=== PATIENT | male | born 1950 | race Caucasian/White ===

== ENCOUNTER → 2017-12-15 | Outpatient (CLI) | payer BC ==
[~2017-12-15] MED LIST: ASPI81TA28 PO; EPP3/2 IM; LPT10 PO; LSN/10125 PO
[2017-12-15 12:52] LABS: ALBUMIN 3.9 gm/dl (3.4-5.0); ALT/SGPT 35 U/L (12-78); AST/SGOT 16 U/L (15-37); BLOOD UREA NITROGEN 18 mg/dl (7-18); CALCIUM 9.1 mg/dl (8.5-10.1); CARBON DIOXIDE 26 mmol/L (21-32); CREATININE 1.15 mg/dl (0.60-1.40); GLUCOSE 98 mg/dl (70-99); HEMATOCRIT 49.7 % (42-52); HEMOGLOBIN 17.3 g/dL (14.0-18.0); MEAN CELL VOLUME 90.5 fL (80-100); MEAN CORPUSCULAR HEMOGLOBIN 31.5 pg (25-34); MEAN CORPUSCULAR HGB CONC 34.8 g/dl (32-36); MEAN PLATELET VOLUME 10.5 fL (7.4-10.4); PLATELET COUNT 237 K/uL (130-400); POTASSIUM 4.1 mmol/L (3.5-5.1); RED CELL DISTRIBUTION WIDTH CV 12.4 % (11.5-14.5); SODIUM 138 mmol/L (136-145); WHITE BLOOD COUNT 9.53 K/uL (4.8-10.8)
[2017-12-15 13:03] LABS: ALKALINE PHOSPHATASE 83 U/L (45-117); CHOLESTEROL 150 mg/dl (0-200); LDL CHOLESTEROL CALCULATED 85 mg/dl; TOTAL PROTEIN 8.1 gm/dl (6.4-8.2)
== END | disposition home or self-care (01) ==
LOC: C.LABPVFM 08:03
PROVIDERS: ATTEND Family Medicine
DX: E78.5 Hyperlipidemia, unspecified (principal)

== ENCOUNTER 2021-06-02 07:13 | Observation (INO) ==
--- NOTE | 2021-04-27 13:07 | PAT Medication Instructions ---
Medication Instructions Date of Service April 27, 2021 Home Medications Medication Instructions Recorded sildenafil (pulm.hypertension) 20 50 mg PO DAILY PRN #36 tab 08/08/19 mg tablet epinephrine 0.3 mg/0.3 mL 0.3 mg IM .COMPLEX PRN #2 ea 02/26/20 injection, auto-injector sildenafil 20 mg tablet 50 mg PO DAILY PRN aspirin 81 mg tablet,delayed release 81 mg PO QAM epinephrine 0.3 mg/0.3 mL injection, auto-injector 0.3 mg IM .COMPLEX PRN ibuprofen 200 mg tablet (Advil) 400 mg PO Q6H PRN pantoprazole 40 mg tablet,delayed release (Protonix) 40 mg PO DAILY PRN acetaminophen 325 mg tablet (Tylenol) 325 mg PO QID PRN atorvastatin 20 mg tablet 20 mg PO QAM metoprolol succinate 25 mg tablet,extended release 24 hr 25 mg PO QAM triamterene 37.5 mg-hydrochlorothiazide 25 mg tablet 1 tab PO QAM Continue as directed epinephrine 0.3 mg/0.3 mL injection, auto-injector 0.3 mg IM .COMPLEX PRN (if needed) ASK your surgeon for instructions ibuprofen 200 mg tablet (Advil) 400 mg PO Q6H PRN ASK your prescriber and surgeon aspirin 81 mg tablet,delayed release 81 mg PO QAM DO NOT take the morning of surgery sildenafil 20 mg tablet 50 mg PO DAILY PRN triamterene 37.5 mg-hydrochlorothiazide 25 mg tablet 1 tab PO QAM Take morning of surgery With a small sip of water, OTHERWISE NOTHING TO EAT OR DRINK AFTER MIDNIGHT: pantoprazole 40 mg tablet,delayed release (Protonix) 40 mg PO DAILY PRN (if needed) acetaminophen 325 mg tablet (Tylenol) 325 mg PO QID PRN (okay to take up to 4 hours prior to surgery if needed) atorvastatin 20 mg tablet 20 mg PO QAM metoprolol succinate 25 mg tablet,extended release 24 hr 25 mg PO QAM Take evening before surgery sildenafil 20 mg tablet 50 mg PO DAILY PRN (if needed) pantoprazole 40 mg tablet,delayed release (Protonix) 40 mg PO DAILY PRN (if needed) acetaminophen 325 mg tablet (Tylenol) 325 mg PO QID PRN (if needed) Other Notes If you have any questions please call us at [phone] or [phone] or [phone] or [phone]
--- NOTE | 2021-04-30 14:35 | Anesthesiology Consultation ---
Date of Service April 30, 2021 Assessment & Plan (1) Encounter for pre-operative examination: - COVID screening: Per assessment on 04/30: Travel screen negative, no known COVID-19 positive contacts or current COVID-19 related symptoms. Patient vaccinated. Surgeon arranging preop COVID testing. Awaiting results. - B/L TKA: Pt states surgeon discussed B/L versus staged TKA risks/benefits and pt wishes to proceed with B/L TKA. Chart Review Chart Review: Acceptable Risk for Surgery (pending surgeon-ordered PCP clearance) and Patient seen in Pre Admission Testing Teaching & Discussion Pre-Anesthesia Teaching/Discussion Notes: Instructed NPO after midnight before surgery,except medications with 15 cc of water. Medication instructions provided according to the PAT guidelines. History Surgery Operation Date: 06/02/21 08:25 Proposed Procedures p Bilateral Total Knee Arthroplasty - Fredy Deshpande DO Height/Weight Height: 6 ft Weight: 110.2 kg Allergies Allergy/AdvReac Type Severity Reaction Status Date / Time bee venom protein (honey bee) Allergy Mild Hives Verified 04/30/21 14:32 Medications Home Medications Medication Instructions Recorded Confirmed Last Taken sildenafil (pulm.hypertension) 20 50 mg PO DAILY PRN #36 tab 08/08/19 04/26/21 Unknown mg tablet aspirin 81 mg tablet,delayed 81 mg PO QAM 11/22/19 04/26/21 12/26/20 release epinephrine 0.3 mg/0.3 mL 0.3 mg IM .COMPLEX PRN #2 ea 02/26/20 04/26/21 Unknown injection, auto-injector ibuprofen 200 mg tablet (Advil) 400 mg PO Q6H PRN 12/26/20 04/26/21 12/26/20 pantoprazole 40 mg tablet,delayed 40 mg PO DAILY PRN 12/26/20 04/26/21 Unknown release (Protonix) acetaminophen 325 mg tablet 325 mg PO QID PRN 04/26/21 04/26/21 Unknown (Tylenol) atorvastatin 20 mg tablet 20 mg PO QAM 04/26/21 04/26/21 Unknown metoprolol succinate 25 mg 25 mg PO QAM 04/26/21 04/26/21 Unknown tablet,extended release 24 hr triamterene 37.5 1 tab PO QAM 04/26/21 04/26/21 Unknown mg-hydrochlorothiazide 25 mg tablet Past Medical History Medical History Acid reflux Depression Fatigue History of COVID-19 Dx 09/2020 > symptoms at time of fever, body aches, cough, dyspnea > resolved History of skin cancer s/p excision HLD (hyperlipidemia) HTN (hypertension) Osteoarthritis TIA (transient ischemic attack) Per 06/2015 [facility] discharge summary, possible TIA versus vertigo. Unremarkable MRI of brain, carotids, echo. No subsequent issues. Exercise / Class Metabolic Activity III < 4 Walking/Shop/Light housework (one FS (no CP, + sob)) Past Family History Family History Father Myocardial infarction Other No family history of adverse response to anesthesia Denies family history of Ovarian cancer Prostate cancer Breast cancer Colorectal cancer Past Surgical History Surgical History H/O rotator cuff surgery History of arthroscopy of shoulder Rt x 2 History of colonoscopy History of hemorrhoidectomy History of left knee surgery History of tonsillectomy Past Anesthesia History No Hx of Anesthesia Complications and No Family Hx of Anesthesia Complications History of PONV No Hx of PONV and No Hx of Motion Sickness Social History Smoking Status: Never smoker Do You Dip or Chew Tobacco: No Hx Alcohol Use: Yes Alcohol type: beer alcohol intake frequency: a few times a week Hx Substance Use: Yes substance use type: marijuana (once weekly (inhaled)) Review of Systems Patient denies chest pain, shortness of breath, dyspnea on exertion, fever, chills, cough, wheezing, palpitations. Physical Exam Vital Signs VITALS BP 150/90 P 53 TEMP 97.7 SP02 98%RA RESP 16 PHYSICAL Full cervical extension range of motion. Full TMJ range of motion. TMD 4 finger breaths Mallampati Score 3 Dentition: several missing (molars), + 2 crowns (sides) Lungs: clear throughout to auscultation Cardiac: regular rate and rhythm, no murmurs noted Spine: normal Carotid arteries: negative bruit Extremities: no edema Lab Results Anesthesia Preop Results Results Anesthesia Widget: WBC 8.82 K/uL (4.8-10.8) 04/30/21 Hgb 16.8 g/dL (14.0-18.0) 04/30/21 Hct 47.5 % (42-52) 04/30/21 Plt 226 K/uL (130-400) 04/30/21 Na 140 mmol/L (136-145) 04/30/21 K 3.8 mmol/L (3.5-5.1) 04/30/21 Cl 109 mmol/L (98-107) H 04/30/21 CO2 28 mmol/L (21-32) 04/30/21 BUN 16 mg/dl (7-18) 04/30/21 Creat 1.07 mg/dl (0.6-1.4) 04/30/21 Glucose Level 95 mg/dl (70-99) 04/30/21 PT 10.0 Seconds (9.0-12.0) 04/30/21 PTT 27.9 Seconds (21.0-31.0) 04/30/21 INR 1.0 (0.9-1.1) 04/30/21 HA1c 5.8 % (4.5-5.6) H 04/30/21 Urine Color Yellow 04/30/21 Urine Appearance Clear (Clear) 04/30/21 Urine pH 5.5 (4.5-7.5) 04/30/21 Urine Specific [place] 1.023 (1.000-1.030) 04/30/21 Urine Protein Negative (Negative) 04/30/21 Urine Glucose (UA) Negative (Negative) 04/30/21 Urine Ketones Negative (Negative) 04/30/21 Urine Blood Negative (Negative) 04/30/21 Urine Nitrite Negative (Negative) 04/30/21 Urine Bilirubin Negative (Negative) 04/30/21 Urine Urobilinogen Negative (Negative) 04/30/21 Urine Leukocyte Esterase Negative (Negative) 04/30/21 Blood Type A Negative 04/30/21 Antibody Screen NEGATIVE 04/30/21 Testing Electrocardiogram Date: 04/30/21 Findings: + NSR @ (60) Chest X-Ray Date: 12/26/20 No acute process within the chest. Stable mild cardiomegaly. Echocardiogram Date: 06/23/15 LVEF 65%. No significant valvular disease. No clear interatrial shunt. Mildly dilated ascending aorta at 4.2 to 4.3 cm. Borderline concentric LVH. Other Testing Carotid artery ultrasound (9/21/15): No sonographic evidence of hemodynamically significant stenosis in right or left carotid arterial system. Antegrade flow in vertebral arteries.
--- NOTE | 2021-05-07 08:38 | History & Physical Report ---
Date of Service May 07, 2021 date of surgery: 06/02/21 Procedure Bilateral Total Knee Arthroplasty Assessment & Plan (1) Degenerative arthritis of knee, bilateral: Plan: Risks and benefits of procedure discussed in detail today, patient would like to proceed with Bilateral total knee replacements at [facility] as scheduled. will obtain medical clearance from Dr Huff prior to surgery as well as obtain PATs at [facility]. Will place on Xarelto x 1 month post op, f/u 2 weeks post op for routine post-operative care and x-ray, sooner if having any problems. will make arrangements for HHPT at the time of discharge. At this point in time, has failed conservative measures and would like to proceed with surgical intervention. The risks and benefits have been discussed including, but not limited to, risk of infection, nerve injury, stiffness, loss of motion, failure to improve, etc. Reasonable outcomes and options of treatment were discussed. An explanation of appropriate alternatives to the procedure that may be advantageous were discussed and their risks and benefits, as well as the risks and benefits of not proceeding with treatment. I offered to answer any additional inquiries concerning the treatment involved. All the patient's questions were answered. The patient is agreeable, understanding of the treatment plan and alternatives, and wishes to proceed with the treatment plan. History of Present Illness Chief Complaint: Bilateral knee pain Primary Care Provider: Catia Peoples MD Huy is a 70 year old who complains of bilateral knee pain, presents for pre- op evaluation prior to bilateral total knee replacements by Dr Deshpande at [facility]. He complains of pain, decreased range of motion and stiffness in both knees. He states that the symptoms have been chronic and non-traumatic and are moderate- severe. he rates both knees as 7/10. The pain is described as aching, sharp and throbbing. His symptoms are aggravated by ascending stairs, daily activities, first steps while awake walking. Prior NSAIDs include Ibuprofen and Aleve. He has been treated with previous visco injections in the past without much relief. Allergies Allergy/AdvReac Type Severity Reaction Status Date / Time bee venom protein (honey bee) Allergy Mild Hives Verified 04/30/21 14:32 Home Medications Medication Instructions Recorded Confirmed Type sildenafil (pulm.hypertension) 20 50 mg PO DAILY PRN #36 tab 08/08/19 04/26/21 Rx mg tablet aspirin 81 mg tablet,delayed 81 mg PO QAM 11/22/19 04/26/21 History release epinephrine 0.3 mg/0.3 mL 0.3 mg IM .COMPLEX PRN #2 ea 02/26/20 04/26/21 Rx injection, auto-injector ibuprofen 200 mg tablet (Advil) 400 mg PO Q6H PRN 12/26/20 04/26/21 History pantoprazole 40 mg tablet,delayed 40 mg PO DAILY PRN 12/26/20 04/26/21 History release (Protonix) acetaminophen 325 mg tablet 325 mg PO QID PRN 04/26/21 04/26/21 History (Tylenol) atorvastatin 20 mg tablet 20 mg PO QAM 04/26/21 04/26/21 History metoprolol succinate 25 mg 25 mg PO QAM 04/26/21 04/26/21 History tablet,extended release 24 hr triamterene 37.5 1 tab PO QAM 04/26/21 04/26/21 History mg-hydrochlorothiazide 25 mg tablet Past Med/Surg History Medical History Acid reflux Depression Fatigue History of COVID-19 Dx 09/2020 > symptoms at time of fever, body aches, cough, dyspnea > resolved History of skin cancer s/p excision HLD (hyperlipidemia) HTN (hypertension) Osteoarthritis TIA (transient ischemic attack) Per 06/2015 [facility] discharge summary, possible TIA versus vertigo. Unremarkable MRI of brain, carotids, echo. No subsequent issues. Surgical History H/O rotator cuff surgery History of arthroscopy of shoulder Rt x 2 History of colonoscopy History of hemorrhoidectomy History of left knee surgery History of tonsillectomy Family History Father Myocardial infarction Other No family history of adverse response to anesthesia Denies family history of Ovarian cancer Prostate cancer Breast cancer Colorectal cancer Social History Smoking Status: Never smoker Second Hand Exposure: No; Hx Alcohol Use: Yes Alcohol type: beer Hx Substance Use: Yes Last Used Substance: Unknown Preferred Language: Andorran Communication Ability: Effective Visual Impairment: No Limitations Hearing Ability: Normal Director Of Fundraising Required: No Beliefs That Will Affect Care: None marital status: Current Living Situation: Spouse current occupational status: retired Feels Safe at Home: Yes Childhood Exposure to Second-Hand Smoke: No caffeine: Yes Dental Care, Regularly: Yes Seatbelt Use: always Sunscreen Use: Yes (sometimes) Assistive Devices: None Review of Systems Review of Systems: All systems reviewed & are unremarkable except as noted in HPI & below Constitutional: no fever, no chills and no sweats Respiratory: no cough and no dyspnea Cardiovascular: no chest pain, no dyspnea and no orthopnea Gastrointestinal: no abdominal pain, no nausea and no vomiting Musculoskeletal: as per Subjective / HPI Physical Exam Physical Exam: HT: 6ft WT: 110kg BP: 155/97 Constitutional: WD/WN, vitals as above no acute distress Respiratory: normal respiratory effort, lungs clear to auscultation no respiratory distress, no labored breathing and does not use accessory muscles Cardiovascular: RRR, no murmur, no edema Gastrointestinal (Abdomen): normal bowel sounds, soft, nontender, no hepatosplenomegaly Musculoskeletal: Bilateral knee Physical exam Overall patient has varus alignment bilaterally, there is no atrophy or ecchymosis noted, +1 suprapatellar effusion in both knees, positive tenderness to both medial and lateral joint lines right knee, more medial sided tenderness to the left knee. negative patellar apprehension, positive crepitation noted to both knees with active ROM. bilateral knees stable to valgus and varus stress, laquita negative, posterior drawer negative. Range of motion right knee 0/3/110, left knee 0/3/115. lower extremities are neurovascularly intact, calf soft and non tender, DP pulse +2 bilaterally. Results & Data Results & Data ([facility]) Diagnostic Findings Bilateral Knee X-ray: bilateral knee series confirms degenerative changes bilateral knees, greatest medial compartments and patellofemoral joints, showing joint space narrowing, osteophyte formation and subchondral sclerosis. no acute bony pathology noted.
[~2021-06-02 07:13] MED LIST changes: +ACETAMINOPHEN 500 MG TAB PO SCH; -ASPI81TA28 PO; +BUPIVACAINE 0.25% 30 ML VIAL ONE; +BUPIVACAINE 0.5 % 5 MG/1 ML PF 10ML VIAL ONE; +CeleBREX 200 MG CAP PO SCH; -EPP3/2 IM; +FAMOTIDINE 20 MG TAB PO SCH; +GABAPENTIN 300 MG CAP PO SCH; -LPT10 PO; +LR 500ML BOLUS, THEN 15ML/HR IV SCH; -LSN/10125 PO; +METOCLOPRAMIDE HCL 10 MG TABLET PO SCH; +ROPIVACAINE 0.5% HCL/PF 150 MG, BUPIVACAINE 0.75% MPF 20 ML, EPINEPHrine 30MG/30ML (OR ... INSTIL SCH; +Scopolamine 1 MG TDSY TD SCH; +TRANEXAMIC ACID 1,000 MG **IV Intra-op IV SCH; +TRANEXAMIC ACID 1,000 MG **IV Pre-op IV SCH; +ceFAZolin 2000MG 2,000 MG/15 ML SYR IV SCH; +dexAMETHasone 4 MG TAB PO SCH
--- NOTE | 2021-06-02 08:29 | History & Physical Bridge Note ---
Date of Service June 02, 2021 History & Physical Bridge Note I have examined the patient, reviewed the History & Physical and in the interval since the performance of the History & Physical I have noted the following changes of clinical significance: no changes noted
[2021-06-02] MEDS ORDERED: ePHEDrine sulfate 50 MG/ML AMP IV PRN (09:42)
[2021-06-02] MEDS ORDERED: fentaNYL citrate 100 MCG/2 ML VIAL IV PRN (09:42)
[2021-06-02] MEDS ORDERED: ONDANSETRON INJ 2 MG/ML 2 ML VIAL IV PRN ×2 (09:42→15:02)
[2021-06-02] MEDS ORDERED: ATROPINE SULFATE 0.1 MG/ML 10ML SYR IV PRN (09:42)
[2021-06-02] MEDS ORDERED: MIDAZOLAM HCL 1 MG/ML 2ML VIAL ONE (09:47)
[2021-06-02] MEDS ORDERED: PROPOFOL IV EMULSION 10 MG/ML 20 ML VIAL IV ONE ×2 (10:07→13:54)
[2021-06-02] MEDS ORDERED: ORTHO JOINT ANESTHETIC ONE (10:07)
--- NOTE | 2021-06-02 13:11 | Operative Report ---
Post Operative Report Pre & Post Diagnosis Operation Date: 06/02/21 09:30 Pre-Op Diagnosis: Bilateral Primary Osteoarthritis of Knee Post-Op Diagnosis: Bilateral Primary Osteoarthritis of Knee I identified the patient and participated in the time-out.: Yes Procedure Operation Date: 06/02/21 09:30 Actual Procedures p Bilateral Total Knee Arthroplasties(Bilateral) utilizing [employer] journey 2 patient matched total knee arthroplasty right size 7 femur 7 tibia 15 polythirty 2 oval patella left size 6 femur 6 tibia 10 polythirty 5 oval patella- Fredy Deshpande DO Surgeon Fredy Deshpande DO Art Objects Supervisor Parveen BLANCHARD Estimated Blood Loss 10 (5 cc per side ) Findings Consistent with Post-Op Diagnosis Patient presents with severe end-stage bilateral tricompartmental DJD nonresponsive to conservative management patient's failed attempted conservative management above intraoperative findings noted subchondral sclerosis marginal osteophytes varus alignment flexion contracture of 5 degrees eburnated [id number] marginal osteophytes moderate to large effusion bilaterally Specimens Bone and cartilage Drains Medium bore Hemovac Anesthesia Type MAC Spinal Regional Complications none Disposition Accompanied Patient To Recovery: No Disposition: Recovery Room Indications Patient presents after failed attempted conservative management clinic physical therapy anti-inflammatories relative rest activity modification corticosteroid injection viscosupplementation above intraoperative findings were noted Description of Procedure After proper prepping and draping of the bilateral lower extremities, an anterior midline incision was made over the region of the extensor extensor mec hanism of the left knee. After meticulous hemostasis was obtained and maintained in subcutaneous tissues a medial parapatellar incision was made The patella was subluxed lateralward the medial lateral gutter were cleaned from any hypertrophic synovitis and scar tissue of the distal femoral block was placed and the distal femoral osteotomy cut was made subsequently the chamfers anterior and posterior osteotomy cuts were made utilizing the 4-in-1 block the tibia was subsequently subluxed anteriorward medial and ateral meniscal remnants were excised in their entirety remnants of the anterior and posterior cruciate ligaments were excised in their entirety excellent exposure of the proximal tibia was obtained the tibial osteotomy guide was placed on the proximal tibial osteotomy cut was made once again the knee was irrigated with copious amounts of sterile saline solution the patella was subsequently everted lateralward thickened scar tissue around the patella was removed the patella was subsequently cut utilizing a freehand technique and was drilled prepared for final preparation and placement of patella socially flexion-extension gaps were checked and the equal and symmetric trials were placed to the appropriate femoral and tibial trials with poly-spacer being placed for equal flexion and extension gaps and full range of motion including extension to 0 and flexion to 140 the trial components after having been taken to recovery range of motion was subsequently removed meticulous hemostasis was obtained and maintained subsequently a knee block injection of joint cocktail including ropivacaine 0.5% 150 mg. Bupivacaine 0.5% epinephrine 1-200,030 mL's toradol 30 mg dexamethasone 4 mg ketamine 10 mg clonidine 100 micrograms normal saline solution 30 mg was infiltrated into the soft tissues of the posterior knee medial lateral gutters and periosteal synovium special attention was paid to protect neurovascular structures at all times subsequently trial components having been removed the knee was irrigated with sterile saline solution. debris was removed the proximal tibia was subsequently prepared and was made ready for the placement of the tibial component tibial component was also cemented and tamped into position the femoral component was subsequently placed and cemented in the position the patellar component was subsequently cemented in position because hemostasis once again obtained and maintained wound having been thoroughly irrigated with debridement and debridement lavage was performed as well as a medial parapatellar incision closed with #1 Vicryl in interrupted fashion subcutaneous was closed with #2 Vicryl skin was closed with skin clips Next, an anterior midline incision was made over the region of the extensor extensor mechanism of the right knee. After meticulous hemostasis was obtained and maintained in subcutaneous tissues a medial parapatellar incision was made The patella was subluxed lateralward the medial lateral gutter were cleaned from any hypertrophic synovitis and scar tissue of the distal femoral block was placed and the distal femoral osteotomy cut was made subsequently the chamfers anterior and posterior osteotomy cuts were made utilizing the 4-in-1 block the tibia was subsequently subluxed anteriorward medial and ateral meniscal remnants were excised in their entirety remnants of the anterior and posterior cruciate ligaments were excised in their entirety excellent exposure of the proximal tibia was obtained the tibial osteotomy guide was placed on the proximal tibial osteotomy cut was made once again the knee was irrigated with copious amounts of sterile saline solution the patella was subsequently everted lateralward thickened scar tissue around the patella was removed the patella was subsequently cut utilizing a freehand technique and was drilled prepared for final preparation and placement of patella socially flexion-extension gaps were checked and the equal and symmetric trials were placed to the appropriate femoral and tibial trials with poly-spacer being placed for equal flexion and extension gaps and full range of motion including extension to 0 and flexion to 140 the trial components after having been taken to recovery range of motion was subsequently removed meticulous hemostasis was obtained and maintained subsequently a knee block injection of joint cocktail including ropivacaine 0.5% 150 mg. Bupivacaine 0.5% epinephrine 1-200,030 mL's toradol 30 mg dexamethasone 4 mg ketamine 10 mg clonidine 100 micrograms normal saline solution 30 mg was infiltrated into the soft tissues of the posterior knee medial lateral gutters and periosteal synovium special attention was paid to protect neurovascular structures at all times subsequently trial components having been removed the kn ee was irrigated with sterile saline solution. debris was removed the proximal tibia was subsequently prepared and was made ready for the placement of the tibial component tibial component was also cemented and tamped into position the femoral component was subsequently placed and cemented in the position the patellar component was subsequently cemented in position because hemostasis once again obtained and maintained wound having been thoroughly irrigated with debridement and debridement lavage was performed as well as a medial parapatellar incision closed with #1 Vicryl in interrupted fashion subcutaneous was closed with #2 Vicryl skin was closed with skin clips.. PA-C was necessary for prepping and drapping as well as wound closure of deep fascia Sub cutaneous tissue and skin and was necessary for the case. A sterile compressive dressings were placed, patient was taken to recovery in stable condition of report dictated by Jeramy I attest to the content of the Intraoperative Record and any orders documented therein. Any exceptions are noted below. I attest to the content of the Intraoperative Record and any orders documented therein. Any exceptions are noted below.
--- NOTE | 2021-06-02 14:35 | XRay Report ---
XR knee RT 1 or 2V routine CLINICAL HISTORY: Postoperative evaluation. COMPARISON: None FINDINGS: Alignment of the total right knee arthroplasty is anatomic. There is no periprosthetic fra cture or unexpected radiopaque foreign bodies. There are skin bg. Surgical drains are in place. IMPRESSION: Expected findings following total right knee arthroplasty. ACT 112: Negative or not required by law. Electronically signed by: Jaxon Rivas M.D. 06/02/2021 2:34 PM
--- NOTE | 2021-06-02 14:35 | XRay Report ---
XR knee LT 1 or 2V routine CLINICAL HISTORY: Postoperative evaluation. COMPARISON: Left knee radiographs June 04, 2012. FINDINGS: Alignment of the total left knee arthroplasty is anatomic. No periprosthetic fracture or u nexpected radiopaque foreign body. There are skin bg. There are surgical drains. IMPRESSION: Expected findings following total left knee arthroplasty. ACT 112: Negative or not required by law. Electronically signed by: Jaxon Rivas M.D. 06/02/2021 2:33 PM
--- NOTE | 2021-06-02 14:39 | Anesthesiology Progress Note ---
Date of Service June 02, 2021 Anesthesia Post Procedure Vital Signs Vital Signs: Temp Pulse Pulse Resp BP BP Pulse Ox 06/02/21 14:20 68 14 126/79 95 06/02/21 14:10 67 16 126/82 99 06/02/21 14:00 69 18 119/82 97 06/02/21 13:50 76 20 141/84 H 96 06/02/21 13:48 36.4 C L 82 16 136/84 99 06/02/21 07:43 36.7 C 68 20 153/99 H 98 Transfer of Care Handoff Completed per policy Notes Mental Status: alert / awake / arousable and participated in evaluation Patient Amnestic to Procedure: No Nausea / Vomiting: adequately controlled Pain: adequately controlled Airway Patency, RR, SpO2: stable & adequate BP & HR: stable & adequate Hydration State: stable & adequate Neuraxial Anesthesia: was administered and sensory block is resolving Anesthetic Complications: no major complications apparent and Pt Satisfied with anesthetic care
[2021-06-02] MEDS ORDERED: MAGNESIUM HYDROXIDE SUSP 30 ML UDC PO PRN (15:02)
[2021-06-02] MEDS ORDERED: bisacodyL 10 MG SUPP PR PRN (15:02)
[2021-06-02] MEDS ORDERED: HYDROmorphone INJ 0.5 MG/0.5 ML SYR IV PRN (15:02)
[2021-06-02] MEDS ORDERED: NALOXONE HCL 0.4 MG/1 ML VIAL/CARP IV PRN (15:02)
[2021-06-02] MEDS: SODIUM CHLORIDE 0.9% 1000ML 1,000 ML IV SCH (15:18)
[2021-06-02] MEDS ORDERED: PANTOprazole 40 MG TAB PO PRN (15:30)
[2021-06-02] MEDS ORDERED: Scopolamine CHECK PATCH PLACEMENT SCH (16:00)
[2021-06-02] MEDS ORDERED: PNEUMOCOCCAL POLYSACCHARIDES 25 MCG/0.5 ML VIAL/SYR IM ONE (16:10)
[2021-06-02] MEDS: ACETAMINOPHEN 500 MG TAB PO SCH ×2 (17:22→21:22)
[2021-06-02] MEDS: FERROUS GLUCONATE 324 MG TAB PO SCH (17:22)
[2021-06-02] MEDS: ceFAZolin 2000MG 2,000 MG/15 ML SYR IV SCH (17:22)
[2021-06-02] MEDS: SENNA 8.6 MG TAB PO SCH (21:22)
[2021-06-02] MEDS: DOCUSATE SODIUM 100 MG CAP PO SCH (21:23)
[2021-06-03] MEDS: SODIUM CHLORIDE 0.9% 1000ML 1,000 ML IV SCH (00:45)
[2021-06-03] MEDS: ceFAZolin 2000MG 2,000 MG/15 ML SYR IV SCH (01:48)
[2021-06-03] MEDS: ACETAMINOPHEN 500 MG TAB PO SCH ×3 (05:58→22:11)
[2021-06-03 06:07] LABS: Hematocrit (blood only) 42.4 % (42-52); Hemoglobin 14.7 g/dL (14.0-18.0); Mean Corpuscular Hemoglobin 31.3 pg (25-34); Mean Corpuscular Hgb Conc 34.7 g/dL (32-36); Mean Corpuscular Volume 90.2 fL (80-100); Mean Platelet Volume 10.2 fL (7.4-10.4); Platelet Count 225 K/uL (130-400); RDW Coefficient of Variation 12.4 % (11.5-14.5); RDW Standard Deviation 40.8 fL (36.4-46.3); White Blood Count 18.38 K/uL (4.8-10.8)
[2021-06-03 06:35] LABS: Calcium 8.2 mg/dl (8.5-10.1); Creatinine Clr Calc Pharmacy 81.4 ml/min; Est GFR (African American) 79.8 ml/min; Est GFR (Non-African American) 68.9 ml/min; Potassium 3.8 mmol/L (3.5-5.1)
[2021-06-03] MEDS ORDERED: KETOROLAC TROMETHAMINE 15 MG/ML VIAL IV ONE (09:30)
[2021-06-03] MEDS: MULTIVITAMIN TAB PO SCH (09:44)
[2021-06-03] MEDS: RIVAROXABAN 10 MG TABLET PO SCH (09:44)
[2021-06-03] MEDS: DOCUSATE SODIUM 100 MG CAP PO SCH ×2 (09:44→20:31)
[2021-06-03] MEDS: TRIAMTERENE/HCTZ 37.5/25MG TAB PO SCH (09:45)
[2021-06-03] MEDS: METOPROLOL SUCC 25MG EXT REL TAB PO SCH (09:45)
--- NOTE | 2021-06-03 09:45 | Orthopedic Progress Note ---
Date of Service June 03, 2021 Assessment & Plan (1) Degenerative arthritis of knee, bilateral: Plan: Postop day 1 Pain management-patient having moderate pain however he did not require much in the way of pain medications overnight and has gotten behind on his pain control. Continue hydromorphone, oxycodone, with addition of Toradol low-dose for now. PT/OT protocols. Weightbearing as tolerated. As able. DVT prophylaxis-rivaroxaban, SCDs, JERRY hose. DC planning-patient planning for home health services upon discharge. We will see how he progresses with his physical therapy and reassess tomorrow. Admission and Anticipated Discharge Date Admission Date: June 02, 2021 Supervising Physician Co-Signing Physician Notes Patient seen and examined. Agree with SANTO Salas's note as above. He is doing relatively well after bilateral total knee arthroplasties. Ambulation is difficult due to pain, but it is improving. Subjective Postop day 1 Patient sitting up at the bedside getting ready to do his physical therapy session. Patient states he has no pain number of around 5 currently. States he had some Tylenol this morning. No other complaints at this time. Denies shortness of breath, chest pain, lightheadedness. As physical therapy was wo rking with him, it was noted he was having what appeared to be greater pain than a #5. After looking into his medications, he has not had any other pain medications other than Tylenol. Physical therapy continue to work with the patient and upon my return he had stood up at the bedside and taken a few steps but was very painful at that point rating it a 10. We discussed how he should be monitoring his pain level and asking for pain medication. In addition to his pain medications that he has, Toradol 15 mg IV now was ordered along with a scheduled dose. Physical Exam Physical Exam: Dressings are clean, dry, and intact. Calves are soft and nontender. Neurovascular intact. Toes are mobile. He has good dorsiflexion and plantarflexion of both feet. Hemovac drainage was 175 from the left and 75 from the right. Results & Data ([facility]) Vital Signs (Past 12 Hours) Vital Signs Temp Pulse Resp BP BP Pulse Ox 06/03/21 04:05 36.5 C 76 18 134/73 97 06/02/21 22:39 36.5 C 61 18 108/72 95 Laboratory Results Laboratory Results WBC 18.38 K/uL (4.8-10.8) H 06/03/21 05:17 RBC 4.70 M/uL (4.7-6.1) 06/03/21 05:17 Hgb 14.7 g/dL (14.0-18.0) 06/03/21 05:17 Hct 42.4 % (42-52) 06/03/21 05:17 MCV 90.2 fL (80-100) 06/03/21 05:17 MCH 31.3 pg (25-34) 06/03/21 05:17 MCHC 34.7 g/dL (32-36) 06/03/21 05:17 RDW Std Deviation 40.8 fL (36.4-46.3) 06/03/21 05:17 RDW Coeff of Abe 12.4 % (11.5-14.5) 06/03/21 05:17 Plt Count 225 K/uL (130-400) 06/03/21 05:17 MPV 10.2 fL (7.4-10.4) 06/03/21 05:17 Sodium 140 mmol/L (136-145) 06/03/21 05:17 Potassium 3.8 mmol/L (3.5-5.1) 06/03/21 05:17 Chloride 111 mmol/L (98-107) H 06/03/21 05:17 Carbon Dioxide 23 mmol/L (21-32) 06/03/21 05:17 Anion Gap 6.0 (3-11) 06/03/21 05:17 BUN 25 mg/dl (7-18) H 06/03/21 05:17 Creatinine 1.09 mg/dl (0.6-1.4) 06/03/21 05:17 Est Cr Clr Drug Dosing 81.4 ml/min 06/03/21 05:17 Est GFR ( Amer) 79.8 ml/min 06/03/21 05:17 Est GFR (Non-Af Amer) 68.9 ml/min 06/03/21 05:17 BUN/Creatinine Ratio 23.0 (10-20) H 06/03/21 05:17 Glucose 120 mg/dl (70-99) H 06/03/21 05:17 Calcium 8.2 mg/dl (8.5-10.1) L 06/03/21 05:17 COVID-19 Eval Order Covid19 at [facility] 06/02/21 07:42 SARS-CoV-2 (PCR) NEGATIVE (Negative) 06/02/21 07:42 Hepatitis C Ab Screen Neg (Neg) 06/03/21 05:17 Impressions Knee X-Ray 06/02/21 13:55 XR knee RT 1 or 2V routine CLINICAL HISTORY: Postoperative evaluation. COMPARISON: None FINDINGS: Alignment of the total right knee arthroplasty is anatomic. There is no periprosthetic fracture or unexpected radiopaque foreign bodies. There are skin bg. Surgical drains are in place. IMPRESSION: Expected findings following total right knee arthroplasty. ACT 112: Negative or not required by law. Electronically signed by: Jaxon Rivas M.D. 06/02/2021 2:34 PM XR knee LT 1 or 2V routine CLINICAL HISTORY: Postoperative evaluation. COMPARISON: Left knee radiographs June 04, 2012. FINDINGS: Alignment of the total left knee arthroplasty is anatomic. No periprosthetic fracture or unexpected radiopaque foreign body. There are skin bg. There are surgical drains. IMPRESSION: Expected findings following total left knee arthroplasty.
[2021-06-03] MEDS: FERROUS GLUCONATE 324 MG TAB PO SCH ×2 (09:46→17:31)
[2021-06-03] MEDS: ATORVASTATIN 20 MG TAB PO SCH (09:46)
[2021-06-03] MEDS: oxyCODONE HCL IR 5 MG TAB (IMMEDIATE RELEASE) PO PRN ×2 (11:50→17:36)
[2021-06-03] MEDS: KETOROLAC TROMETHAMINE 15 MG/ML VIAL IV SCH (20:30)
[2021-06-03] MEDS: SENNA 8.6 MG TAB PO SCH (20:31)
[2021-06-04] MEDS: KETOROLAC TROMETHAMINE 15 MG/ML VIAL IV SCH ×2 (03:25→07:59)
[2021-06-04] MEDS: ACETAMINOPHEN 500 MG TAB PO SCH ×2 (05:18→13:59)
--- NOTE | 2021-06-04 07:14 | Orthopedic Progress Note ---
Date of Service June 04, 2021 Assessment & Plan (1) History of total bilateral knee replacement: Plan: POD #2 s/p Bilateral TKAs pt/ot dvt proph with JERRY/SCD/Xarelto plan for d/c home with home health PT. recheck after PT likely d/c today Admission and Anticipated Discharge Date Admission Date: June 02, 2021 Subjective POD #2 s/p Bilateral TKA Review of Systems Review of Systems: All systems reviewed & are unremarkable except as noted in HPI & below Constitutional: no fever and no chills Respiratory: no cough and no dyspnea Cardiovascular: no chest pain, no dyspnea and no orthopnea Gastrointestinal: no abdominal pain, no nausea and no vomiting Physical Exam Physical Exam: Vital Signs Temp Pulse Pulse Resp BP BP Pulse Ox 06/04/21 07:06 36.7 C 76 16 186/94 H 99 06/04/21 06:43 73 180/92 H 06/04/21 06:23 37.2 C 71 20 188/96 H 97 06/03/21 22:23 36.5 C 61 18 150/88 H 97 06/03/21 14:38 36.8 C 65 16 159/88 H 94 06/03/21 09:53 36.5 C 81 20 165/74 H 95 Intake and Output 06/03/21 06/04/21 06/04/21 22:59 06:59 14:59 Intake Total 500 / 500 Output Total 825 / 2400 800 / 2400 Balance -825 / -1900 -300 / -1900 Intake: Oral 500 / 500 Output: Urine 625 / 1600 700 / 1600 Drain Output 200 / 800 100 / 800 Left Knee Hemo vac #2 100 / 400 25 / 400 Right Knee Hem ovac #1 100 / 400 75 / 400 Constitutional: WD/WN, vitals as above no acute distress Musculoskeletal: Bilateral lower legs: NVDI, calf SNT, negative rolando sign. DP palpable, able to wiggle toes/ankle movement without difficulty. dressing clean dry and intact. expected post-operative bruising noted. Results & Data ([facility]) Vital Signs (Past 12 Hours) Vital Signs Temp Pulse Pulse Resp BP Pulse Ox 06/04/21 07:06 36.7 C 76 16 186/94 H 99 06/04/21 06:43 73 180/92 H 06/04/21 06:23 37.2 C 71 20 188/96 H 97 06/03/21 22:23 36.5 C 61 18 150/88 H 97
[2021-06-04] MEDS: DOCUSATE SODIUM 100 MG CAP PO SCH (07:54)
[2021-06-04] MEDS: FERROUS GLUCONATE 324 MG TAB PO SCH (07:54)
[2021-06-04] MEDS: RIVAROXABAN 10 MG TABLET PO SCH (07:55)
[2021-06-04] MEDS: MULTIVITAMIN TAB PO SCH (07:56)
[2021-06-04] MEDS: METOPROLOL SUCC 25MG EXT REL TAB PO SCH (07:56)
[2021-06-04] MEDS: TRIAMTERENE/HCTZ 37.5/25MG TAB PO SCH (07:56)
[2021-06-04] MEDS: ATORVASTATIN 20 MG TAB PO SCH (07:56)
[2021-06-04] MEDS: oxyCODONE HCL IR 5 MG TAB (IMMEDIATE RELEASE) PO PRN (11:49)
--- NOTE | 2021-06-08 08:02 | Discharge Summary ---
Date of Service date of discharge: June 04, 2021 date of admission: 06-02-21 Admission HPI Per Admitting Provider Huy is a 70 year old who complains of bilateral knee pain, presents for pre-op evaluation prior to bilateral total knee replacements by Dr Deshpande at [facility]. He complains of pain, decreased range of motion and stiffness in both knees. He states that the symptoms have been chronic and non-traumatic and are moderate- severe. he rates both knees as 7/10. The pain is described as aching, sharp and throbbing. His symptoms are aggravated by ascending stairs, daily activities, first steps while awake walking. Prior NSAIDs include Ibuprofen and Aleve. He has been treated with previous visco injections in the past without much relief. Principal Diagnosis bilateral knee arthritis Discharge Exam Musculoskeletal bilateral knees: NVDI, calf SNT, negative rolando sign. DP palpable, able to wiggle toes/ankle movement without difficulty. EZEKIEL dressing clean dry and intact. expected post-operative bruising noted. Discharge Data Allergies Allergy/AdvReac Type Severity Reaction Status Date / Time bee venom protein (honey bee) Allergy Mild Hives Verified 06/02/21 07:38 Procedures Performed Operation Date: 06/02/21 09:30 Actual Procedures p Bilateral Total Knee Arthroplasties(Bilateral) - Fredy Deshpande DO Ordered Studies 06/02/21 05:00 US - OR guided needle placemen Routine Hospital Course (1) History of total bilateral knee replacement: POD #2 s/p Bilateral TKAs pt/ot dvt proph with JERRY/SCD/Xarelto plan for d/c home with home health PT. recheck after PT likely d/c today Total Time Total Time Spent Total Time Spent (In Minutes): 20 Discharge Plan Discharge Items Patient Disposition: Home - Home Health Services Reason For Visit: Bilateral Primary Osteoarthritis of Knee Discharge Diagnosis: Bilateral knee osteoarthritis Condition on Discharge: Good Activity: Per Instructions section Weightbearing: Left weightbearing and Right weightbearing Weightbearing Comment: As tolerated with walker. Non-emergency contact: Surgeon Call non-emergency contact if: you have any medication questions, your temperature is above 101, your wound has increased redness, your wound has increased drainage and your wound pain has increased Follow-up/Referrals: Catia Peoples MD [Primary Care Provider] - Diet: Regular Addtl Attending Provider Instructions: ACTIVITY RECOMMENDATIONS: SELF CARE INSTRUCTIONS AFTER TOTAL KNEE REPLACEMENT A. You may need to continue a physical therapy program after discharge from the hospital. There are several options available to you. Your doctor will assist you in selecting the best one for you. 1. An out-patient facility 2 to 3 times a week for therapy or home therapy. 2. Continue working on all exercises taught to you in the hospital. Your goals should be to increase bending of your knee to 90 degrees and beyond and to fully straighten your knee. B. You may progress at your own pace from walking with a walker or crutches to a cane; then to no assistive devices. C. Make walking a part of your daily routine. Be up as much as comfortable with rest periods throughout the day. Rest with leg elevation is very important. Use the ice wrap frequently for the first 3-4 weeks. D. There are no restrictions on activities. You may ride in a car, shop, participate in fixed income director and all social activities. E. Wear the long elastic stockings (JERRY hose) 20 hours a day for 2 weeks after surgery. They can be removed several times a day for laundering and for a bath. F. You may shower, no tub baths until cleared by your doctor. SPECIAL CARE INSTRUCTIONS: VERY IMPORTANT TO READ AND REVIEW A. There are a few signs you need to watch for after you are home. Call [facility] if you notice any of the followin. Increased severe knee pain. Some pain is expected especially when you exercise. 2. Increased swelling in your leg or knee; pain or swelling of the calf muscle in either lower leg. 3. Any fluid drainage from the incision. 4. Shortness of breath or chest pain. B. Please call [facility] [place] at if you have any concerns or questions about your operation or recovery. The doctor or his nurse will return your call promptly. C. You must take antibiotics before dental work, bladder, bowel or other surgery. Your doctor will provide you with a permanent care to carry describing this precaution. IMPORTANT: * REMEMBER TO TAKE ASPIRIN, 81 MG, TWICE DAILY FOR 4 WEEKS UNLESS OTHERWISE DIRECTED. THIS IS YOUR BLOOD THINNER. * HIGH RISK PATIENTS MAY BE PRESCRIBED A STRONGER BLOOD THINNER. THIS WILL BE PROVIDED AT DISCHARGE. * CALL IF INCREASED PAIN, REDNESS, DRAINAGE OR FEVER GREATER THAT 101. * WEAR JERRY HOSE 20 HOURS PER DAY FOR 2 WEEKS. * EZEKIEL Wound Dressings - This is a large suction dressing covering your incision. This will help pull any excess drainage from the wound and allow your incision to heal properly. You may shower with this if you can keep the unit outside of the shower. If any bleeding or leakage is noted please call your doctor's office. This will remain on your incision for 7 days and then should be removed. This can be done yourself or by the home nursing staff if applicable. The entire unit is disposable once removed. Once removed, keep incision clean and dry. If redness or drainage is noted, please call your surgeon. . FOLLOW UP VISIT: If appointment is not already scheduled: Please call [facility] to make a follow-up appointment for 2 weeks after your surgery at . Pending Studies at Discharge: No Stand-Alone Forms: My [facility] PF Management Services, Opioid Pain Management, Work/School Release, Smoking Cessation Medications and DC Order Prescriptions: New Xarelto 10 mg Tablet 10 mg PO DAILY 14 Days Qty: 14 RF: 0 acetaminophen [Tylenol Extra Strength] 500 mg Tablet 1,000 mg PO Q8 21 Days Qty: 126 RF: 0 oxycodone 5 mg Tablet 5 - 10 mg PO Q6H PRN (Reason: pain) Qty: 30 RF: 0 docusate sodium 100 mg Capsule 100 mg PO BID 10 Days Qty: 20 RF: 0 cefadroxil 500 mg capsule 500 mg PO BID 14 Days Qty: 28 RF: 0 Continued epinephrine 0.3 mg/0.3 mL auto-injector 0.3 mg IM .COMPLEX PRN (Reason: anaphylaxis) Qty: 2 RF: 1 sildenafil (pulm.hypertension) 20 mg tablet 50 mg PO DAILY PRN (Reason: sexual activity) Qty: 36 RF: 1 atorvastatin 20 mg tablet 20 mg PO QAM RF: 0 triamterene-hydrochlorothiazid 37.5-25 mg tablet 1 tab PO QAM RF: 0 metoprolol succinate 25 mg tablet extended release 24 hr 25 mg PO QAM RF: 0 pantoprazole [Protonix] 40 mg Tablet,Delayed Release (Dr/Ec) 40 mg PO DAILY PRN (Reason: Acid Reflux) RF: 0 Discontinued aspirin 81 mg tablet,delayed release (DR/EC) 81 mg PO QAM RF: 0 acetaminophen [Tylenol] 325 mg Tablet 325 mg PO QID PRN (Reason: Pain) RF: 0 ibuprofen [Advil] 200 mg Tablet 400 mg PO Q6H PRN (Reason: Pain) RF: 0 Discharge Orders: Discharge Order (Routine); Ordered 06/04/21 Ordered By: Guillermo Curiel/Other Patient Handouts: DVT Post Op Prevention, Post-Op Tips: Knee, After Knee Replacement: Back at Home Admission Data Admit Date/Time: 06/02/21 13:55 Attending Provider: Fredy Deshpande Admit Provider: Fredy Deshpande Primary Care Provider: Catia Peoples Other Providers: [facility],Home Healthcare Other Interventions: Discharge Summary Assessment (RN) Last Done: 06/04/21 13:26
== END 2021-06-04 14:52 | disposition home health service (06) ==
LOC: 3E 07:13 → ASU 07:13
DX: Z79.899 Other long term (current) drug therapy; K21.9 Gastro-esophageal reflux disease without esophagitis; Z82.49 Family history of ischemic heart disease and other diseases of the circulatory system; Z91.030 Bee allergy status; Z86.73 Personal history of transient ischemic attack (TIA), and cerebral infarction without residual deficits; M19.90 Unspecified osteoarthritis, unspecified site; Z79.82 Long term (current) use of aspirin; Z86.16 Personal history of COVID-19; E78.5 Hyperlipidemia, unspecified; I10 Essential (primary) hypertension; M17.0 Bilateral primary osteoarthritis of knee

== ENCOUNTER 2022-11-21 23:01 | Observation (INO) ==
[2022-11-21] MEDS ORDERED: GI COCKTAIL ED USE PO ONE (23:23)
--- NOTE | 2022-11-21 23:23 | Emergency Department Note ---
History of Present Illness General Chief complaint: Respiratory Distress Stated complaint: POST HIP SURGERY,THROAT SEIZING, UNABLE TO BREATH Time Seen by Provider: 11/21/22 23:10 History of Present Illness 71-year-old presents to the emergency department with a 3-day history of hiccups status post left hip surgery. Patient had outpatient hip surgery at [facility]. He does not remember if he was intubated at the time or just received generalized anesthesia under minimal anesthesia care. Patient states that he continues to have hiccups. Patient has not had hiccups in the past. Patient denies any chest pain; he states that he feels short of breath when he has the hiccups. Patient's orthopedic physician prescribed baclofen 2 days ago. Patient has been taking baclofen and Tylenol with no relief. Patient denies any headache he denies abdominal pain states that he feels like his throat is seizing when he has hiccups. There were no other mitigating or alleviating factors Home Medications Medication Instructions Recorded Confirmed Type pantoprazole 40 mg tablet,delayed 40 mg PO DAILY PRN Acid Reflux 12/26/20 11/22/22 History release (Protonix) sildenafil (pulm.hypertension) 20 50 mg PO DAILY PRN sexual activity 10/08/21 11/22/22 Rx mg tablet #36 tabs atorvastatin 20 mg tablet 20 mg PO QAM #90 tabs 01/31/22 11/22/22 Rx metoprolol succinate 25 mg 25 mg PO QAM #90 tabs 01/31/22 11/22/22 Rx tablet,extended release 24 hr triamterene 37.5 1 tab PO QAM #90 tabs 01/31/22 11/22/22 Rx mg-hydrochlorothiazide 25 mg tablet acetaminophen 650 mg 1,300 mg PO Q12H PRN Pain 11/22/22 11/22/22 History tablet,extended release (Tylenol 8 Hour) epinephrine 0.3 mg/0.3 mL 0.3 mg IM DIRECTED PRN 11/22/22 11/22/22 History injection, auto-injector anaphylaxis rivaroxaban 20 mg tablet (Xarelto) 20 mg PO QAM 11/22/22 11/22/22 History triamcinolone acetonide 0.1 % 1 applic topical BID PRN Skin 11/22/22 11/22/22 History topical cream Irritation Allergies Allergy/AdvReac Type Severity Reaction Status Date / Time bee venom protein (honey bee) Allergy Intermediate Hives Verified 11/22/22 00:51 Past Med/Surg History Medical History Acid reflux Depression Fatigue History of COVID-19 Dx 09/2020 > symptoms at time of fever, body aches, cough, dyspnea > resolved History of skin cancer s/p excision HLD (hyperlipidemia) HTN (hypertension) Osteoarthritis TIA (transient ischemic attack) Per 06/2015 [facility] discharge summary, possible TIA versus vertigo. Unremarkable MRI of brain, carotids, echo. No subsequent issues. Surgical History H/O rotator cuff surgery History of arthroscopy of shoulder Rt x 2 History of colonoscopy History of hemorrhoidectomy History of left knee surgery History of tonsillectomy Family History Father Myocardial infarction Other No family history of adverse response to anesthesia Denies family history of Ovarian cancer Prostate cancer Breast cancer Colorectal cancer Social History Smoking Status: Never smoker Second Hand Exposure: No; Hx Alcohol Use: Yes Alcohol type: beer Hx Substance Use: Yes Prescribed Medications: Marijuana Preferred Language: Barbadian Communication Ability: Effective Visual Impairment: No Limitations Hearing Ability: Normal 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 Required: No Beliefs That Will Affect Care: None marital status: Current Living Situation: Spouse current occupational status: retired How many Children do You have: 2 Feels Safe at Home: Yes Childhood Exposure to Second-Hand Smoke: No caffeine: Yes Dental Care, Regularly: Yes Physical Activity Frequency: Daily Seatbelt Use: always Sunscreen Use: Yes (sometimes) Assistive Devices: Glasses and Walker Review of Systems A total of 10 systems reviewed and were otherwise negative Constitutional: no fever Respiratory: no cough Hiccups Cardiovascular: no chest pain Gastrointestinal: + belching; no abdominal pain Physical Exam Vital Signs Vital Signs - 24 hr 11/21/22 23:02 11/22/22 00:23 11/22/22 00:10 Temperature 36.5 C Temperature Source Oral Pulse Rate 98 H 103 H Pulse Rate [Left Finger] 106 H Respiratory Rate 18 18 Respiratory Effort / Characteristics Non-Labored Spontaneous Respiratory Depth Normal Blood Pressure 137/89 Blood Pressure [Right Arm] 130/99 Blood Pressure Mean 105 Blood Pressure Mean [Right Arm] 109 Blood Pressure Position [Right Arm] Pulse Oximetry 98 96 Oxygen Delivery Method Room Air Room Air Sepsis Recent Fever Within 48 Hours No Sepsis New/Unexplained Change in Mental Status N/A Sepsis Action Taken by Nursing No Action Required 11/22/22 02:00 11/22/22 02:00 11/22/22 01:15 Temperature 36.8 C Temperature Source Oral Pulse Rate 144 H 155 H Pulse Rate [Left Finger] 144 H Respiratory Rate 24 20 Respiratory Effort / Characteristics Respiratory Depth Blood Pressure Blood Pressure [Right Arm] 113/89 Blood Pressure Mean Blood Pressure Mean [Right Arm] 97 Blood Pressure Position [Right Arm] Lying Pulse Oximetry 94 94 Oxygen Delivery Method Room Air Room Air Sepsis Recent Fever Within 48 Hours Sepsis New/Unexplained Change in Mental Status Sepsis Action Taken by Nursing GENERAL: Patient is awake alert in no acute distress patient is resting comfortably and showing no signs of anxiety EYES: The conjunctivae are clear. The pupils are round and reactive. EARS, NOSE, MOUTH AND THROAT: The nose is without any evidence of any deformity. Mucous membranes are moist. Tongue is midline. NECK: The neck is nontender and supple. RESPIRATORY: Normal respiratory effort is noted there is no evidence of wheezing rhonchi or rales CARDIOVASCULAR: Regular rate and rhythm noted there no murmurs rubs or gallops normal S1 normal S2. GASTROINTESTINAL: The abdomen is soft. Abdomen is nontender. PELVIS: The Pelvis is stable. No tenderness to palpation is noted. BACK: No midline tenderness or or step-off noted range of motion in flexion extension as well as rotation no signs of muscle spasm noted MUSCULOSKELETAL/EXTREMITIES: There is no evidence of gross deformity full range of motion is noted in the hips and shoulders. SKIN: There is no obvious evidence of any rash. There are no petechiae, pallor or cyanosis noted. NEUROLOGIC: Patient is awake alert and oriented x3 strength is symmetric Course Reevaluation(s) Reevaluation #1: Patient on repeat examination states that his hiccups went away however approximately 1:40 AM the patient had sudden onset of rapid atrial fibrillation that required intervention of IV Cardizem and IV Cardizem drip. Patient has no prior history of atrial fibrillation. I discussed the evaluation with the patient the patient's at bedside Time: 02:04 Consultations Consultation #1: Spoke with the [facility] for admission, accepted for rapid atri al fibrillation and hiccups Time: 02:04 Administered Medications Diltiazem HCl 125 mg/ Dextrose 125 mls @ 10 mls/hr IV .[id number] [facility]; Protocol Stop: 12/22/22 01:59 Last Titration: 11/22/22 02:28 Dose: 10 mg/hr, 10 mls/hr Documented By: ASHKAN Co-signed By: MALCOM Admin: 11/22/22 01:55 Dose: 5 mg/hr, 5 mls/hr Documented By: ROSSANA Co-signed By: MALCOM Magnesium Sulfate/Dextrose (Magnesium Sulfate / D5w) 1 gm in 100 mls @ 100 mls/hr IV NOW STA Stop: 11/22/22 03:33 Last Admin: 11/22/22 02:48 Dose: 100 mls/hr Documented By: ROSSANA Discontinued Medications Al Hydrox/Mg Hydrox/Simethicone (Gi Cocktail Ed Use) 1 dose PO ONE ONE Stop: 11/21/22 23:24 Last Admin: 11/22/22 00:02 Dose: 1 dose Documented By: ROSSANA Chlorpromazine HCl (Chlorpromazine Hcl 25 Mg/Ml Amp) 50 mg IM NOW ONE Stop: 11/21/22 23:20 Last Admin: 11/22/22 00:22 Dose: 50 mg Documented By: ROSSANA Diltiazem HCl (Diltiazem Hcl 5 Mg/Ml 5 Ml Vial) Confirm Administered Dose 25 mg IV .STK-MED ONE Stop: 11/22/22 01:40 Last Increment: 11/22/22 01:44 Dose: 20 mg Documented By: ROSSANA Co-signed By: MALCOM Diltiazem HCl (Diltiazem Hcl 5 Mg/Ml 5 Ml Vial) 25 mg IV NOW STA Stop: 11/22/22 02:30 Last Admin: 11/22/22 02:36 Dose: 25 mg Documented By: ROSSANA Co-signed By: Miscellaneous (Stat Iv Infusion Titration Per Protocol) 1 each N/A NOW STA Stop: 11/22/22 01:47 Last Admin: 11/22/22 01:57 Dose: 1 each Documented By: ROSSANA Critical Care Time Critical Care Time: Yes Total Critical Care Time: 40 I have personally spent greater than 40 minutes of critical care time in the direct management of this patient. This includes bedside care, interpretation of diagnostic studies, and testing, discussion with consultants, patient, and family members, and other required patient management activities. These minutes are in excess of all separately billable procedures. Medical Decision Making Medical Records Attestation: I reviewed the patient's medical records. Home Medications Current Medication List: was personally reviewed by [place] Laboratory Data Attestation: I reviewed the patient's lab results. Labs reviewed by me patient has leukocytosis 11/22/22 00:15 11/22/22 00:15 Lab Results 11/22/22 11/22/22 11/22/22 Range/Units 00:15 00:15 00:15 WBC 17.58 H (4.8-10.8) K/ul RBC 5.61 (4.70-6.10) M/uL Hgb 17.6 (14.0-18.0) g/dl Hct 50.0 (42.0-52.0) % MCV 89.1 (80.0-100.0) fL MCH 31.4 (25.0-34.0) pg MCHC 35.2 (32.0-36.0) g/dL RDW Std Deviation 39.5 (36.4-46.3) fL RDW Coeff of Abe 12.1 (11.5-14.5) % Plt Count 310 (130-400) K/uL MPV 9.9 (9.4-12.4) fL Immature Gran % (Auto) 0.5 % Neut % (Auto) 68.1 % Lymph % (Auto) 15.9 % [place] % (Auto) 11.6 % Eos % (Auto) 3.6 % Baso % (Auto) 0.3 % Neut # (Auto) 11.98 H (1.40-6.50) K/uL Lymph # (Auto) 2.80 (1.2-3.4) K/uL [place] # (Auto) 2.04 H (0.11-0.59) K/uL Eos # (Auto) 0.63 H (0-0.50) K/uL Baso # (Auto) 0.05 (0-0.2) K/uL Immature Gran # (Auto) 0.08 (0.01-0.20) K/uL PT Cancelled INR Cancelled APTT Cancelled PTT Ratio Cancelled Sodium 137 (136-145) mmol/L Potassium 4.2 (3.5-5.1) mmol/L Chloride 104 (98-107) mmol/L Carbon Dioxide 23 (21-32) mmol/L Anion Gap 10 (3-11) BUN 26 H (6-23) mg/dl Creatinine 1.05 (0.6-1.4) mg/dl Est Cr Clr Drug Dosing 85.4 ml/min Est GFR ( Amer) 83.0 ml/min Est GFR (Non-Af Amer) 71.6 ml/min BUN/Creatinine Ratio 24.8 H (10-20) Glucose 127 H (70-99(Fasting)) mg/dl Calcium 10.1 (8.5-10.1) mg/dl Total Bilirubin 0.9 (0.2-1.0) mg/dl AST 27 (13-39) U/L ALT 31 (7-52) U/L Alkaline Phosphatase 81 (34-104) U/L Troponin I High Sens 12.6 (0-20) pg/ml Total Protein 7.9 (6.0-8.3) gm/dl Albumin 4.3 (3.4-5.0) gm/dl Globulin 3.6 (2.5-4.0) gm/dl Albumin/Globulin Ratio 1.2 (0.9-2) Lipase 43 (11-82) U/L SARS-CoV-2, RNA, NAAT (NEGATIVE) 11/22/22 11/22/22 Range/Units 01:49 02:00 WBC (4.8-10.8) K/ul RBC (4.70-6.10) M/uL Hgb (14.0-18.0) g/dl Hct (42.0-52.0) % MCV (80.0-100.0) fL MCH (25.0-34.0) pg MCHC (32.0-36.0) g/dL RDW Std Deviation (36.4-46.3) fL RDW Coeff of Abe (11.5-14.5) % Plt Count (130-400) K/uL MPV (9.4-12.4) fL Immature Gran % (Auto) % Neut % (Auto) % Lymph % (Auto) % [place] % (Auto) % Eos % (Auto) % Baso % (Auto) % Neut # (Auto) (1.40-6.50) K/uL Lymph # (Auto) (1.2-3.4) K/uL [place] # (Auto) (0.11-0.59) K/uL Eos # (Auto) (0-0.50) K/uL Baso # (Auto) (0-0.2) K/uL Immature Gran # (Auto) (0.01-0.20) K/uL PT 11.4 INR 1.1 APTT 32.7 H PTT Ratio 1.2 Sodium (136-145) mmol/L Potassium (3.5-5.1) mmol/L Chloride (98-107) mmol/L Carbon Dioxide (21-32) mmol/L Anion Gap (3-11) BUN (6-23) mg/dl Creatinine (0.6-1.4) mg/dl Est Cr Clr Drug Dosing ml/min Est GFR ( Amer) ml/min Est GFR (Non-Af Amer) ml/min BUN/Creatinine Ratio (10-20) Glucose (70-99(Fasting)) mg/dl Calcium (8.5-10.1) mg/dl Total Bilirubin (0.2-1.0) mg/dl AST (13-39) U/L ALT (7-52) U/L Alkaline Phosphatase (34-104) U/L Troponin I High Sens (0-20) pg/ml Total Protein (6.0-8.3) gm/dl Albumin (3.4-5.0) gm/dl Globulin (2.5-4.0) gm/dl Albumin/Globulin Ratio (0.9-2) Lipase (11-82) U/L SARS-CoV-2, RNA, NAAT NEGATIVE (NEGATIVE) Imaging Data Attestation: I personally reviewed and interpreted this imaging study as follows: My Impression: Chest x-ray interpreted by me normal mediastinum no infiltrate no pneumothorax ECG Data Attestation: I personally reviewed and interpreted this ECG as follows: Additional Comments: EKG interpreted by me sinus tachycardia rate of 116 normal intervals normal axis no obvious ST segment elevation or depression Repeat EKG after 20 mg of IV Cardizem was given for SVT on the telemetry monitoring the patient has rapid atrial fibrillation rate of [address] depression inferolaterally normal axis no obvious ST segment elevation MDM Narrative Medical decision making differential diagnosis includes electrolyte abnormality, dehydration, nerve irritation, acute singultus, reflux Plan is to check labs chest x-ray, give IV fluids IV tonics, GI cocktail, Thorazine Patient on repeat examination at 140 went into an SVT rapid atrial fibrillation requiring Cardizem IV and Cardizem drip Patient had resolution of his hiccups Is unknown the etiology of the rapid A-fib at this time Patient will be admitted for further evaluation and treatment of rapid A-fib and hiccups Impression & Plan Singultus, Atrial fibrillation with RVR Discharge Plan Visit Data Chief Complaint: Respiratory Distress Stated Complaint: POST HIP SURGERY,THROAT SEIZING, UNABLE TO BREATH ED Provider: Alonso Gee Discharge Problem: Singultus, Atrial fibrillation with RVR Patient Disposition: Admitted As Inpatient Forms Stand Alone Forms: [facility] Prescriptions Prescriptions: No Action sildenafil (pulm.hypertension) 20 mg tablet 50 mg PO DAILY PRN (Reason: sexual activity) Qty: 36 11RF Rx Instructions: TAKES 2 1/2 TABS. triamterene-hydrochlorothiazid 37.5-25 mg tablet 1 tab PO QAM Qty: 90 1RF metoprolol succinate 25 mg tablet extended release 24 hr 25 mg PO QAM Qty: 90 1RF atorvastatin 20 mg tablet 20 mg PO QAM Qty: 90 1RF triamcinolone acetonide 0.1 % Cream 1 applic TOPICAL BID PRN (Reason: Skin Irritation) acetaminophen [Tylenol 8 Hour] 650 mg Tablet Extended Release 1,300 mg PO Q12H PRN (Reason: Pain) epinephrine 0.3 mg/0.3 mL auto-injector 0.3 mg IM DIRECTED PRN (Reason: anaphylaxis) Rx Instructions: 0.3 mg IM as directed PRN; for 2 doses Xarelto 20 mg tablet 20 mg PO QAM pantoprazole [Protonix] 40 mg Tablet,Delayed Release (Dr/Ec) 40 mg PO DAILY PRN (Reason: Acid Reflux) Referrals Referrals: Catia Peoples MD [Primary Care Provider] -
[2022-11-22] MEDS: chlorproMAZINE HCL 25 MG/ML AMP IM ONE ×2 (00:06→00:22)
[2022-11-22 00:46] LABS: Basophils # (auto) 0.05 K/uL (0-0.2); Basophils % (auto) 0.3 %; Eosinophils # (auto) 0.63 K/uL (0-0.50); Eosinophils % (auto) 3.6 %; Hemoglobin 17.6 g/dl (14.0-18.0); Immature Granulocytes # (auto) 0.08 K/uL (0.01-0.20); Immature Granulocytes % (auto) 0.5 %; Lymphocytes % (auto) 15.9 %; Mean Corpuscular Hemoglobin 31.4 pg (25.0-34.0); Mean Corpuscular Hgb Conc 35.2 g/dL (32.0-36.0); Mean Corpuscular Volume 89.1 fL (80.0-100.0); Mean Platelet Volume 9.9 fL (9.4-12.4); Monocytes # (auto) 2.04 K/uL (0.11-0.59); Monocytes % (auto) 11.6 %; Neutrophils # (auto) 11.98 K/uL (1.40-6.50); Neutrophils % (auto) 68.1 %; Platelet Count 310 K/uL (130-400); RDW Coefficient of Variation 12.1 % (11.5-14.5); RDW Standard Deviation 39.5 fL (36.4-46.3); Red Blood Count 5.61 M/uL (4.70-6.10); White Blood Count 17.58 K/ul (4.8-10.8)
[2022-11-22 00:59] LABS: Albumin Globulin Ratio 1.2 (0.9-2); Albumin Level 4.3 gm/dl (3.4-5.0); BUN Creatinine Ratio 24.8 (10-20); Bilirubin,Total 0.9 mg/dl (0.2-1.0); Calcium 10.1 mg/dl (8.5-10.1); Creatinine Clr Calc Pharmacy 85.4 ml/min; Est GFR (Non-African American) 71.6 ml/min; Globulin 3.6 gm/dl (2.5-4.0); Potassium 4.2 mmol/L (3.5-5.1); Total Protein 7.9 gm/dl (6.0-8.3)
[2022-11-22 01:06] LABS: Troponin I High Sensitivity 12.6 pg/ml (0-20)
[2022-11-22] MEDS ORDERED: dilTIAZem HCl 5 MG/ML 5 ML VIAL IV ONE (01:39)
[2022-11-22] MEDS ORDERED: STAT IV Infusion **Titration per Protocol STA (01:46)
[2022-11-22] MEDS: dilTIAZem HCL 125 MG in DEXTROSE 5% 100 ML IV SCH ×2 (01:55→13:01)
[2022-11-22] MEDS ORDERED: dilTIAZem HCl 5 MG/ML 5 ML VIAL IV STA (02:29)
[2022-11-22] MEDS ORDERED: MAGNESIUM SULFATE / D5W 1 GM/100 ML BAG IV STA (02:34)
--- NOTE | 2022-11-22 02:43 | History & Physical Report ---
Date of Service November 22, 2022 Assessment & Plan (1) Intractable hiccups: Plan: 71-year-old male presenting with intractable hiccups. Patient with recent surgery, left hip replacement. He has been taking baclofen with no improvement. Possibly postanesthesia. Check CT chest We will avoid further medications at this time Check phosphorus (2) Atrial fibrillation with RVR: Plan: Patient with new onset atrial fibrillation with rapid ventricular response in the ER. Possibly secondary to Thorazine administration as this medication has been seen to trigger A-fib due to anticholinergic effect in the heart. Patient presently on Cardizem drip at 5 mg/h. Heart rate remains elevated. He is asymptomatic at this time and blood pressure is adequate. Avoid further Thorazine Continue Cardizem drip Magnesium x1 g Check 2D echo Check TSH Repeat troponin in the morning (3) HTN (hypertension): Plan: Blood pressure well controlled Diltiazem drip as above for management of atrial fibrillation Continue metoprolol 25 mg p.o. every morning (4) Hyperlipidemia: Plan: Chronic. Stable. Continue atorvastatin 20 mg p.o. every morning (5) DVT (deep venous thrombosis): Plan: Patient with chronic DVT on Xarelto anticoagulation. He did hold his Xarelto for 3 days prior to his surgery on 11/15/2022. He resumed it the day after surgery on 11/16/2022. Continue Xarelto (6) Status post left hip replacement: Plan: Surgery well-tolerated. Pain well controlled. Continue Tylenol as needed for pain Patient is to have bandage changed today F/E/NLR at 80 mL/h x 1 L, check magnesium and phosphorus and replete as needed, heart healthy diet as tolerated Prophylaxiscontinue Xarelto Codefull Dispositionadmit to PCU History of Present Illness Chief Complaint: intractable hiccups Primary Care Provider: Catia Peoples MD Huy Andino is a 71-year-old male with history of hypertension, hyperlipidemia, chronic DVT on Xarelto anticoagulation and GERD presenting with intractable hiccups. Patient is status post left LYNDA performed at the outpatient surgery center in [place] on November 15. The surgery was well-tolerated with no complications. Patient is uncertain if he had general anesthesia. He presents this evening with complaints of intractable hiccups x3 days. Hiccups became more intense with associated shortness of breath today. He has been on baclofen for the last 2 days which was ordered by his surgeon for management of hiccups. He has also been taking Tylenol as needed for pain. No additional complaints at this time. Upon arrival to the ER patient afebrile, hemodynamically stable. He developed atrial fibrillation with rapid ventricular response with heart rate to 155. Diltiazem drip with bolus initiated. Patient still in atrial fibrillation during my encounter. Heart rate ranging 120s to 140s. He denies chest pain, shortness of breath, dizziness, confusion. No complaints at this time. Diltiazem drip running at 4 mg/h ER course: Magnesium x1 g Diltiazem 25 mg IV x1 then drip Chlorpromazine 50 mg IM (given 00:22) Maalox Allergies Allergy/AdvReac Type Severity Reaction Status Date / Time bee venom protein (honey bee) Allergy Intermediate Hives Verified 11/22/22 00:51 Home Medications Medication Instructions Recorded Confirmed Type pantoprazole 40 mg tablet,delayed 40 mg PO DAILY PRN Acid Reflux 12/26/20 11/22/22 History release (Protonix) sildenafil (pulm.hypertension) 20 50 mg PO DAILY PRN sexual activity 10/08/21 11/22/22 Rx mg tablet #36 tabs atorvastatin 20 mg tablet 20 mg PO QAM #90 tabs 01/31/22 11/22/22 Rx metoprolol succinate 25 mg 25 mg PO QAM #90 tabs 01/31/22 11/22/22 Rx tablet,extended release 24 hr triamterene 37.5 1 tab PO QAM #90 tabs 01/31/22 11/22/22 Rx mg-hydrochlorothiazide 25 mg tablet acetaminophen 650 mg 1,300 mg PO Q12H PRN Pain 11/22/22 11/22/22 History tablet,extended release (Tylenol 8 Hour) epinephrine 0.3 mg/0.3 mL 0.3 mg IM DIRECTED PRN 11/22/22 11/22/22 History injection, auto-injector anaphylaxis rivaroxaban 20 mg tablet (Xarelto) 20 mg PO QAM 11/22/22 11/22/22 History triamcinolone acetonide 0.1 % 1 applic topical BID PRN Skin 11/22/22 11/22/22 History topical cream Irritation Past Med/Surg History Medical History (Updated 11/22/22 @ 03:26 by Sailaja Parker DO) Acid reflux Depression DVT (deep venous thrombosis) Fatigue History of COVID-19 Dx 09/2020 > symptoms at time of fever, body aches, cough, dyspnea > resolved History of skin cancer s/p excision HLD (hyperlipidemia) HTN (hypertension) Osteoarthritis TIA (transient ischemic attack) Per 06/2015 [facility] discharge summary, possible TIA versus vertigo. Unremarkable MRI of brain, carotids, echo. No subsequent issues. Surgical History (Updated 11/22/22 @ 03:27 by Sailaja Parker DO) H/O rotator cuff surgery History of arthroscopy of shoulder Rt x 2 History of colonoscopy History of hemorrhoidectomy History of left knee surgery History of tonsillectomy Status post left hip replacement Family History Father Myocardial infarction Other No family history of adverse response to anesthesia Denies family history of Ovarian cancer Prostate cancer Breast cancer Colorectal cancer Social History Smoking Status: Never smoker Second Hand Exposure: No; Hx Alcohol Use: Yes Alcohol type: beer Hx Substance Use: Yes Prescribed Medications: Marijuana Preferred Language: Azeri Communication Ability: Effective Visual Impairment: No Limitations Hearing Ability: Normal Marketing Sales Manager Required: No Beliefs That Will Affect Care: None marital status: Current Living Situation: Spouse current occupational status: retired How many Children do You have: 2 Feels Safe at Home: Yes Childhood Exposure to Second-Hand Smoke: No caffeine: Yes Dental Care, Regularly: Yes Physical Activity Frequency: Daily Seatbelt Use: always Sunscreen Use: Yes (sometimes) Assistive Devices: Glasses and Walker Review of Systems Review of Systems: All systems reviewed & are unremarkable except as noted in HPI & below Physical Exam Physical Exam: General: patient resting comfortably, NAD, non-toxic in appearance, AA&O x 4, ongoing hiccups Skin: warm, dry, intact, no rashes or lesions HEENT: NC/AT, PERRL, EOMI, anicteric sclera, conjunctiva without injection, external ear normal to inspection and nontender, nares patent, moist mucus membranes, dentition intact, no oropharyngeal lesions, neck supple, trachea midline, no LAD, no thyromegaly, no JVD Heart: +S1/S2, irregularly easy irregular, no m/r/g Lungs: equal air entry bilaterally, no rales/rhonchi/wheezes Abd: +BS, soft, NT/ND, no masses/organomegaly/ascites Ext: warm, 2+ pulses in UE/LE bilaterally, no clubbing/cyanosis or edema Neuro: nonfocal, patient AA&O x 4, speech intact, no facial droop, moving all extremities on command with equal strength 5/5 Results & Data Results & Data ([facility]) Vital Signs (Past 12 Hours) Vital Signs Temp Pulse Pulse Resp BP BP Pulse Ox 11/22/22 01:15 155 H 11/22/22 02:00 36.8 C 144 H 20 113/89 94 11/22/22 02:00 144 H 24 94 11/22/22 00:10 103 H 11/22/22 00:23 106 H 18 130/99 96 11/21/22 23:02 36.5 C 98 H 18 137/89 98 O2 Del Method 11/22/22 01:15 11/22/22 02:00 Room Air 11/22/22 02:00 Room Air 11/22/22 00:10 11/22/22 00:23 Room Air 11/21/22 23:02 Room Air Laboratory Results Laboratory Results WBC 17.58 K/ul (4.8-10.8) H 11/22/22 00:15 RBC 5.61 M/uL (4.70-6.10) 11/22/22 00:15 Hgb 17.6 g/dl (14.0-18.0) 11/22/22 00:15 Hct 50.0 % (42.0-52.0) 11/22/22 00:15 MCV 89.1 fL (80.0-100.0) 11/22/22 00:15 MCH 31.4 pg (25.0-34.0) 11/22/22 00:15 MCHC 35.2 g/dL (32.0-36.0) 11/22/22 00:15 RDW Std Deviation 39.5 fL (36.4-46.3) 11/22/22 00:15 RDW Coeff of Abe 12.1 % (11.5-14.5) 11/22/22 00:15 Plt Count 310 K/uL (130-400) 11/22/22 00:15 MPV 9.9 fL (9.4-12.4) 11/22/22 00:15 Immature Gran % (Auto) 0.5 % 11/22/22 00:15 Neut % (Auto) 68.1 % 11/22/22 00:15 Lymph % (Auto) 15.9 % 11/22/22 00:15 Wolfe % (Auto) 11.6 % 11/22/22 00:15 Eos % (Auto) 3.6 % 11/22/22 00:15 Baso % (Auto) 0.3 % 11/22/22 00:15 Neut # (Auto) 11.98 K/uL (1.40-6.50) H 11/22/22 00:15 Lymph # (Auto) 2.80 K/uL (1.2-3.4) 11/22/22 00:15 Wolfe # (Auto) 2.04 K/uL (0.11-0.59) H 11/22/22 00:15 Eos # (Auto) 0.63 K/uL (0-0.50) H 11/22/22 00:15 Baso # (Auto) 0.05 K/uL (0-0.2) 11/22/22 00:15 Immature Gran # (Auto) 0.08 K/uL (0.01-0.20) 11/22/22 00:15 PT 11.4 Seconds (9.0-12.0) 11/22/22 01:49 INR 1.1 (0.9-1.1) 11/22/22 01:49 APTT 32.7 Seconds (21.0-31.0) H 11/22/22 01:49 PTT Ratio 1.2 11/22/22 01:49 Sodium 137 mmol/L (136-145) 11/22/22 00:15 Potassium 4.2 mmol/L (3.5-5.1) 11/22/22 00:15 Chloride 104 mmol/L (98-107) 11/22/22 00:15 Carbon Dioxide 23 mmol/L (21-32) 11/22/22 00:15 Anion Gap 10 (3-11) 11/22/22 00:15 BUN 26 mg/dl (6-23) H 11/22/22 00:15 Creatinine 1.05 mg/dl (0.6-1.4) 11/22/22 00:15 Est Cr Clr Drug Dosing 85.4 ml/min 11/22/22 00:15 Est GFR ( Amer) 83.0 ml/min 11/22/22 00:15 Est GFR (Non-Af Amer) 71.6 ml/min 11/22/22 00:15 BUN/Creatinine Ratio 24.8 (10-20) H 11/22/22 00:15 Glucose 127 mg/dl (70-99(Fasting)) H 11/22/22 00:15 Calcium 10.1 mg/dl (8.5-10.1) 11/22/22 00:15 Total Bilirubin 0.9 mg/dl (0.2-1.0) 11/22/22 00:15 AST 27 U/L (13-39) 11/22/22 00:15 ALT 31 U/L (7-52) 11/22/22 00:15 Alkaline Phosphatase 81 U/L (34-104) 11/22/22 00:15 Troponin I High Sens 12.6 pg/ml (0-20) 11/22/22 00:15 Total Protein 7.9 gm/dl (6.0-8.3) 11/22/22 00:15 Albumin 4.3 gm/dl (3.4-5.0) 11/22/22 00:15 Globulin 3.6 gm/dl (2.5-4.0) 11/22/22 00:15 Albumin/Globulin Ratio 1.2 (0.9-2) 11/22/22 00:15 Lipase 43 U/L (11-82) 11/22/22 00:15 SARS-CoV-2, RNA, NAAT NEGATIVE (NEGATIVE) 11/22/22 02:00 Diagnostic Findings Chest x-rayby my interpretation, images slightly rotated right, normal cardiac shadow, no infiltrate, edema or pneumothorax ECG Additional Comments: EKG with sinus tachycardia at 116 bpm with premature supraventricular complexes, FL = 142, QRS = 80, QTc = 475 . No acute ischemic changes Code Status & VTE Plan VTE Prophylaxis Plan VTE Prophylaxis will be ordered: Yes PG Care Time/CCT Total # of Minutes Spent Total Time Spent with Patient: Total time spent is greater than 50% in coordination of care (as documented) at patient's floor/unit and/or counseling patient: Coding Level of Care Code 96958 INT INP/OBS CARE MIN Diagnoses Intractable hiccups R06.6 Atrial fibrillation with RVR I48.91 HTN (hypertension) I10 Hyperlipidemia E78.5 DVT (deep venous thrombosis) I82.431 Affected thrombotic vein of extremity: popliteal Chronicity: acute DVT location: lower extremity Laterality: right Status post left hip replacement Z96.642 (5) DVT (deep venous thrombosis) Affected thrombotic vein of extremity: popliteal Chronicity: acute DVT location: lower extremity Laterality: right Qualified Code(s): I82.431 - Acute embolism and thrombosis of right popliteal vein
[2022-11-22 02:47] LABS: INR 1.1 (0.9-1.1); Partial Thromboplastin Ratio 1.2; Partial Thromboplastin Time 32.7 Seconds (21.0-31.0); Prothrombin Time 11.4 Seconds (9.0-12.0)
[2022-11-22] MEDS ORDERED: LACTATED RINGER'S 1,000 ML IV SCH (04:47)
[2022-11-22] MEDS ORDERED: ACETAMINOPHEN 500 MG TAB PO PRN (04:47)
[2022-11-22] MEDS ORDERED: ONDANSETRON INJ 2 MG/ML 2 ML VIAL IV PRN (04:47)
[2022-11-22] MEDS ORDERED: SODIUM CHLORIDE 0.9% 1000ML 1,000 ML IV SCH (05:00)
[2022-11-22 06:16] LABS: Magnesium 2.1 mg/dl (1.7-2.4)
[2022-11-22 06:22] LABS: Phosphorus 2.3 mg/dl (2.5-4.9)
--- NOTE | 2022-11-22 08:25 | XRay Report ---
SINGLE VIEW CHEST CLINICAL HISTORY: Atypical chest pain. FINDINGS: 2 AP, portable, upright chest radiographs are compared to study dated 10/19/2022 and correla gricel with chest CT dated 06/23/2015. The examination is degraded by portable technique and patient rota tion. The heart is enlarged. The pulmonary vasculature is noncongested. Chronic interstitial thicken ing is similar to previous. The lungs and pleural spaces are clear noting bibasilar scarring/atelecta sis. No pneumothorax is seen. The skeletal structures are osteopenic. The bony thorax is grossly inta ct. IMPRESSION: Cardiomegaly with no active disease in the chest. ACT 112: Negative or not required by law. Electronically signed by: Vinicio Torres M.D. 11/22/2022 8:23 AM
[2022-11-22] MEDS ORDERED: INFLUENZA VACCINE HIGH DOSE PF 65+ 0.7 ML SYR IM ONE (09:43)
--- NOTE | 2022-11-22 09:57 | CT Scan Report ---
CT SCAN OF THE CHEST WITHOUT IV CONTRAST CLINICAL HISTORY: Hiccups. COMPARISON STUDY: Chest x-ray dated 11/21/2022. Chest CT dated 06/23/2015. TECHNIQUE: CT scan of the thorax was performed from the thoracic inlet to the upper abdomen. Images are reviewed in the axial, sagittal, and coronal planes. IV contrast was not administered for this ex amination as per the referring clinician. A dose lowering technique was utilized adhering to the bayron wilmerples of ASAD. CT DOSE: 713.38 mGy.cm FINDINGS: Thyroid: Imaged portions of the thyroid gland are normal in size and attenuation. Thoracic aorta: There is moderate atherosclerotic calcification of the thoracic aorta. There is aneur ysmal dilatation of the ascending thoracic aorta which measures up to 4.6 cm in diameter. The remaind er of the thoracic aorta is normal in caliber, and the arch demonstrates standard 3-vessel anatomy. Heart: The heart is enlarged and without pericardial effusion. The coronary arteries are densely calc ified. Lungs and pleural spaces: The lungs and pleural spaces are clear noting mild bibasilar scarring/atele ctasis. The trachea and central airways are patent. Mediastinum: There is no mediastinal lymphadenopathy. Em: Not well assessed without IV contrast. Axillae: There is no axillary lymphadenopathy. Upper abdomen: There is a [id number] hiatal hernia. The gallbladder is filled with stones and sludge. Skeletal structures: The skeletal structures are osteopenic. No lytic or blastic bony lesions are see n. There are chronic/healed left-sided rib fractures. IMPRESSION: 1. Cardiomegaly with no active disease in the chest. 2. There is mild aneurysmal dilatation of the ascending thoracic aorta which measures up to 4.6 cm in diameter. 3. Cholelithiasis. 4. Advanced coronary artery calcification. 5. Additional findings as above. ACT 112: Negative or not required by law. Electronically signed by: Vinicio Torres M.D. 11/22/2022 9:56 AM
--- NOTE | 2022-11-22 10:50 | Electrocardiogram Report ---
Test Reason : Blood Pressure : / mmHG Vent. Rate : 114 BPM Atrial Rate : 441 BPM P-R Int : 000 ms QRS Dur : 086 ms QT Int : 312 ms P-R-T Axes : 000 026 055 degrees QTc Int : 430 ms Atrial fibrillation with rapid ventricular response Marked ST abnormality, possible inferolateral subendocardial injury Abnormal ECG When compared with ECG of 22-NOV-2022 00:31, (unconfirmed) Atrial fibrillation has replaced Sinus rhythm ST now depressed in Inferior leads ST now depressed in Anterolateral leads Confirmed by Rajesh Alvares ([id number]) on 11/22/2022 10:49:50 AM Referred By: REFERRED SELF Confirmed By:Tawanda Alvares
--- NOTE | 2022-11-22 10:53 | Electrocardiogram Report ---
Test Reason : Blood Pressure : / mmHG Vent. Rate : 116 BPM Atrial Rate : 116 BPM P-R Int : 142 ms QRS Dur : 080 ms QT Int : 342 ms P-R-T Axes : 051 031 027 degrees QTc Int : 475 ms Sinus tachycardia Otherwise normal ECG When compared with ECG of 19-OCT-2022 12:51, Vent. rate has increased BY 56 BPM Confirmed by Rajesh Alvares ([id number]) on 11/22/2022 10:53:22 AM Referred By: REFERRED SELF Confirmed By:Tawanda Alvares
[2022-11-22] MEDS ORDERED: PANTOprazole 40 MG in SYRINGE 0 ML IV SCH (11:00)
[2022-11-22] MEDS: ATORVASTATIN 20 MG TAB PO SCH (12:12)
[2022-11-22] MEDS: PANTOprazole 40 MG TAB PO SCH (12:12)
[2022-11-22] MEDS: METOPROLOL SUCC 25MG EXT REL TAB PO SCH (12:12)
--- NOTE | 2022-11-22 12:15 | XCELERA ---
[id number]
--- NOTE | 2022-11-22 14:58 | Cardiology Consultation ---
Date of Consultation November 22, 2022 Assessment & Plan (1) Atrial fibrillation with RVR: (2) Thoracic aortic aneurysm: (3) Coronary artery calcification: Plan 1. Atrial fibrillation: Unclear if this was related to his presentation. Apparently there were some reports of Thorazine causing atrial fibrillation. However, he likely has substrate for atrial fibrillation in this may be circumstantial or Quince a dental. As this is his 1st known episode it is very likely that he will convert on his own within 24 hours. He has been on systemic anticoagulation for DVT prevention at the appropriate dose for atrial fibrillation and a cardioversion could be entertained tomorrow should he not convert on his own. At this point I would continue with the diltiazem infusion. Once he converts to sinus rhythm we can increase his metoprolol to 50 mg a day. Likely etiology of his atrial fibrillation is simply age, history of hypertension and likely sleep apnea. Treatment of sleep apnea would likely reduce his chance of recurrence. 2. Thoracic aortic aneurysm: Seen on CT scan and echocardiography. This will require monitoring over time. Repeat CT scan in 1 year. Continue beta-blockade with increased dose as noted above. 3. Coronary calcification: Does not describe symptoms consistent with angina or coronary insufficiency. However, coronary calcification is a risk factor for coronary disease and I think he should be treated more aggressively. Last lipid profile revealed an LDL of 98. I think a more reasonable goal would be 70 and I would advocate increasing his atorvastatin to 40 mg daily. I would not add aspirin to his medical regimen as he is currently on rivaroxaban 20 mg daily. History of Present Illness Reason for Consultation: Atrial fibrillation Requesting Physician: Leandro Attending Physician: Fred Reeves MD History of Present Illness The patient is a 71-year-old gentleman without a known history of cardiac disease who presented to the emergency room for persistent and intractable hiccups. Seems that a few days ago the patient developed very frequent hiccups some of which cause respiratory difficulty. He was prescribed a muscle relaxant with some intermittent relief, but due to recurrence and persistent hiccups he presented to the emergency room again. During his emergency room evaluation he was noted to develop atrial fibrillation with rapid ventricular response. The patient seemed unaware of any change in his rhythm. He did not describe overt symptoms such as chest pain or palpitations. He did not realize any shortness of breath. He denies dizziness or lightheadedness. He cannot recall any recent episodes of palpitations. Even leading up to his recent hip replacement he continued to be active with walking and at ascending stairs. He states that recently he has been more short of breath at ascending stairs, but has no exertional chest pain. He does not have any devices at home which routinely monitor his heart rate. Currently claims to feel well. Minimal discomfort at the operative site. No sense of palpitation. Allergies Allergy/AdvReac Type Severity Reaction Status Date / Time bee venom protein (honey bee) Allergy Intermediate Hives Verified 11/22/22 00:51 Home Medications Medication Instructions Recorded Confirmed Type pantoprazole 40 mg tablet,delayed 40 mg PO DAILY PRN Acid Reflux 12/26/20 11/22/22 History release (Protonix) sildenafil (pulm.hypertension) 20 50 mg PO DAILY PRN sexual activity 10/08/21 11/22/22 Rx mg tablet #36 tabs atorvastatin 20 mg tablet 20 mg PO QAM #90 tabs 01/31/22 11/22/22 Rx metoprolol succinate 25 mg 25 mg PO QAM #90 tabs 01/31/22 11/22/22 Rx tablet,extended release 24 hr triamterene 37.5 1 tab PO QAM #90 tabs 01/31/22 11/22/22 Rx mg-hydrochlorothiazide 25 mg tablet acetaminophen 650 mg 1,300 mg PO Q12H PRN Pain 11/22/22 11/22/22 History tablet,extended release (Tylenol 8 Hour) epinephrine 0.3 mg/0.3 mL 0.3 mg IM DIRECTED PRN 11/22/22 11/22/22 History injection, auto-injector anaphylaxis rivaroxaban 20 mg tablet (Xarelto) 20 mg PO QAM 11/22/22 11/22/22 History triamcinolone acetonide 0.1 % 1 applic topical BID PRN Skin 11/22/22 11/22/22 History topical cream Irritation Patient History Medical History (Updated 11/22/22 @ 14:54 by Rajesh Alvares MD) Acid reflux Depression DVT (deep venous thrombosis) Fatigue History of COVID-19 Dx 09/2020 > symptoms at time of fever, body aches, cough, dyspnea > resolved History of skin cancer s/p excision HLD (hyperlipidemia) HTN (hypertension) Osteoarthritis TIA (transient ischemic attack) Per 06/2015 [facility] discharge summary, possible TIA versus vertigo. Unremarkable MRI of brain, carotids, echo. No subsequent issues. Surgical History (Updated 11/22/22 @ 03:27 by Sailaja Parker DO) H/O rotator cuff surgery History of arthroscopy of shoulder Rt x 2 History of colonoscopy History of hemorrhoidectomy History of left knee surgery History of tonsillectomy Status post left hip replacement Family History Father Myocardial infarction Other No family history of adverse response to anesthesia Denies family history of Ovarian cancer Prostate cancer Breast cancer Colorectal cancer Social History Smoking Status: Never smoker Second Hand Exposure: No; Tobacco Cessation Education Requested by Patient: No Hx Alcohol Use: No Hx Substance Use: No Preferred Language: German Communication Ability: Effective Visual Impairment: No Limitations Hearing Ability: Normal Eeo Officer Required: No Beliefs That Will Affect Care: None marital status: Current Living Situation: Spouse current occupational status: retired How many Children do You have: 2 Other Information That Helps Us Care for You: No Feels Safe at Home: Yes Safety Concerns: Feels Safe At This Time Childhood Exposure to Second-Hand Smoke: No caffeine: Yes Dental Care, Regularly: Yes Physical Activity Frequency: Daily Seatbelt Use: always Sunscreen Use: Yes (sometimes) Assistive Devices: None Review of Systems Review of Systems: Per HPI Physical Exam Physical Exam: The patient is alert and oriented. Mood and affect appeared normal. He answered all questions appropriately. HEENT: Pupils are equal and reactive to light and accommodation. Extraocular movements are intact. The sclerae are anicteric. Neuro: Cranial nerves intact Neck: Patient's neck is supple. He has palpable carotid pulses bilaterally without bruits on auscultation. There is no evidence of jugular venous distention. The thyroid is not enlarged. Lungs: Clear to auscultation bilaterally. He has good air movement without use of accessory muscles. No rales wheezes or rhonchi. Cardiac: Heart demonstrates an irregular rhythm and normal rate. Normal S1 and S2. No murmurs on examination. Pulses: The patient has palpable radial pulses bilaterally that are equal in intensity Extremities: There was no evidence of hypoperfusion. There is no cyanosis or clubbing. There is no edema. Skin: I did not appreciate any rashes on examination today. Results & Data ([facility]) Vital Signs (Past 12 Hours) Vital Signs Temp Pulse Pulse Resp BP BP Pulse Ox 11/22/22 13:09 37.1 C 103 H 25 H 113/72 96 11/22/22 13:00 103 H 25 H 11/22/22 13:00 113/72 11/22/22 12:30 99 H 27 H 11/22/22 12:30 121/77 11/22/22 12:00 91 H 13 11/22/22 12:00 105/62 11/22/22 11:30 94 H 14 11/22/22 11:30 113/70 11/22/22 11:00 94 H 23 11/22/22 11:00 120/72 11/22/22 10:30 109 H 15 11/22/22 10:30 97/74 L 11/22/22 10:00 100 H 12 11/22/22 10:00 129/66 11/22/22 09:00 11/22/22 09:00 37.1 C 98 H 20 148/51 H 96 11/22/22 09:00 36.8 C 98 H 20 114/69 94 11/22/22 06:54 113 H 11/22/22 06:33 105 H 16 110/67 97 11/22/22 05:11 118 H 20 106/65 96 11/22/22 04:00 119 H O2 Del Method 11/22/22 13:09 Room Air 11/22/22 13:00 11/22/22 13:00 11/22/22 12:30 11/22/22 12:30 11/22/22 12:00 11/22/22 12:00 11/22/22 11:30 11/22/22 11:30 11/22/22 11:00 11/22/22 11:00 11/22/22 10:30 11/22/22 10:30 11/22/22 10:00 11/22/22 10:00 11/22/22 09:00 Room Air 11/22/22 09:00 Room Air 11/22/22 09:00 Room Air 11/22/22 06:54 11/22/22 06:33 Room Air 11/22/22 05:11 Room Air 11/22/22 04:00 Laboratory Results Abnormal Lab Results 11/22/22 11/22/22 11/22/22 00:15 00:15 00:15 WBC 17.58 H RBC 5.61 Hgb 17.6 Hct 50.0 MCV 89.1 MCH 31.4 MCHC 35.2 RDW Std Deviation 39.5 RDW Coeff of Abe 12.1 Plt Count 310 MPV 9.9 Immature Gran % (Auto) 0.5 Neut % (Auto) 68.1 Lymph % (Auto) 15.9 Isabella % (Auto) 11.6 Eos % (Auto) 3.6 Baso % (Auto) 0.3 Neut # (Auto) 11.98 H Lymph # (Auto) 2.80 Isabella # (Auto) 2.04 H Eos # (Auto) 0.63 H Baso # (Auto) 0.05 Immature Gran # (Auto) 0.08 PT Cancelled INR Cancelled APTT Cancelled PTT Ratio Cancelled Sodium 137 Potassium 4.2 Chloride 104 Carbon Dioxide 23 Anion Gap 10 BUN 26 H Creatinine 1.05 Est Cr Clr Drug Dosing 85.4 Est GFR ( Amer) 83.0 Est GFR (Non-Af Amer) 71.6 BUN/Creatinine Ratio 24.8 H Glucose 127 H Calcium 10.1 Phosphorus 2.3 L Magnesium 2.1 Total Bilirubin 0.9 AST 27 ALT 31 Alkaline Phosphatase 81 Troponin I High Sens 12.6 Total Protein 7.9 Albumin 4.3 Globulin 3.6 Albumin/Globulin Ratio 1.2 Lipase 43 SARS-CoV-2, RNA, NAAT 11/22/22 11/22/22 01:49 02:00 WBC RBC Hgb Hct MCV MCH MCHC RDW Std Deviation RDW Coeff of Abe Plt Count MPV Immature Gran % (Auto) Neut % (Auto) Lymph % (Auto) Isabella % (Auto) Eos % (Auto) Baso % (Auto) Neut # (Auto) Lymph # (Auto) Isabella # (Auto) Eos # (Auto) Baso # (Auto) Immature Gran # (Auto) PT 11.4 INR 1.1 APTT 32.7 H PTT Ratio 1.2 Sodium Potassium Chloride Carbon Dioxide Anion Gap BUN Creatinine Est Cr Clr Drug Dosing Est GFR ( Amer) Est GFR (Non-Af Amer) BUN/Creatinine Ratio Glucose Calcium Phosphorus Magnesium Total Bilirubin AST ALT Alkaline Phosphatase Troponin I High Sens Total Protein Albumin Globulin Albumin/Globulin Ratio Lipase SARS-CoV-2, RNA, NAAT NEGATIVE Diagnostic Findings Echocardiogram performed 11/22/2022: Normal LV systolic function without valvular heart disease. Borderline aortic root dilation. Chest CT was obtained the time admission which revealed an ascending thoracic aortic aneurysm of 4.6 cm. Coronary artery calcification. Chest x-ray obtained the time of admission did not reveal any acute cardiopulmonary process. ECG Additional Comments: Initial EKG at the time of presentation was normal sinus. Atrial fibrillation later developed with a rapid ventricular response and some ST segment changes. PG Care Time/CCT Total # of Minutes Spent Total Time Spent with Patient: Total time spent is greater than 50% in coordination of care (as documented) at patient's floor/unit and/or counseling patient: Coding Level of Care Code 33962 INT INP/OBS CARE 3/75MIN Diagnoses Atrial fibrillation with RVR I48.91 Thoracic aortic aneurysm I71.20 Coronary artery calcification I25.10; I25.84
[2022-11-22] MEDS ORDERED: RIVAROXABAN 20 MG TAB PO SCH (16:30)
[2022-11-22] MEDS ORDERED: dilTIAZem HCL 30 MG TAB PO ONE (23:45)
[2022-11-23 06:43] LABS: Hematocrit (blood only) 42.5 % (42.0-52.0); Hemoglobin 14.7 g/dl (14.0-18.0); Mean Corpuscular Hemoglobin 30.7 pg (25.0-34.0); Mean Corpuscular Hgb Conc 34.6 g/dL (32.0-36.0); Mean Corpuscular Volume 88.7 fL (80.0-100.0); Mean Platelet Volume 9.7 fL (9.4-12.4); Platelet Count 246 K/uL (130-400); RDW Coefficient of Variation 12.2 % (11.5-14.5); RDW Standard Deviation 39.8 fL (36.4-46.3); Red Blood Count 4.79 M/uL (4.70-6.10); White Blood Count 10.92 K/ul (4.8-10.8)
[2022-11-23 06:49] LABS: BUN Creatinine Ratio 21.8 (10-20); Calcium 9.1 mg/dl (8.5-10.1); Creatinine Clr Calc Pharmacy 94.4 ml/min; Est GFR (African American) 86.9 ml/min; Potassium 4.1 mmol/L (3.5-5.1)
[2022-11-23 08:02] LABS: Troponin I High Sensitivity 494.1 pg/ml (0-20)
[2022-11-23] MEDS: ATORVASTATIN 20 MG TAB PO SCH (08:15)
[2022-11-23] MEDS: METOPROLOL SUCC 25MG EXT REL TAB PO SCH (08:16)
[2022-11-23] MEDS: PANTOprazole 40 MG TAB PO SCH (08:16)
--- NOTE | 2022-11-23 09:25 | Cardiology Progress Note ---
Date of Service November 23, 2022 Assessment & Plan (1) Atrial fibrillation with RVR: (2) Thoracic aortic aneurysm: (3) Coronary artery calcification: Plan 1. Atrial fibrillation: He converted to sinus rhythm. As noted previously I would recommend increasing metoprolol succinate to 50 mg daily. He can continue Xarelto 20 mg daily. We discussed ways to monitor for additional episodes of atrial fibrillation. 2. Thoracic aortic aneurysm: Seen on CT scan and echocardiography. This will require monitoring over time. Repeat CT scan in 1 year. Continue beta-blockade with increased dose as noted above. 3. Coronary calcification: Will increase atorvastatin to 40 mg daily. Continue rivaroxaban. 4. Elevated troponin: It is not clear why another troponin was ordered, but it is likely that the elevation is related to his atrial fibrillation, associated rapid ventricular rate in the setting of fixed coronary disease. He does have notable coronary artery calcifications on CT scan. He generally does not have symptoms of exertional chest pain or limiting dyspnea. Did discuss symptoms of which to be aware. Do not believe he requires any additional testing currently. Will continue aggressive risk factor modification. Admission and Anticipated Discharge Date Admission Date: November 22, 2022 Subjective This morning patient claims to be feeling well. No particular symptoms. He has been ambulatory. No sense of palpitations or current chest pain. No breathing difficulty. Review of Systems Review of Systems: Per HPI Physical Exam Physical Exam: The patient is alert and oriented. Mood and affect appeared normal. He answered all questions appropriately. HEENT: Pupils are equal and reactive to light and accommodation. Extraocular movements are intact. The sclerae are anicteric. Neuro: Cranial nerves intact Lungs: Normal respiratory effort Cardiac: Regular rhythm Extremities: There was no evidence of hypoperfusion. There is no cyanosis or clubbing. Skin: I did not appreciate any rashes on examination today. Results & Data ([facility]) Vital Signs (Past 12 Hours) Vital Signs Temp Pulse Pulse Resp BP Pulse Ox Pulse Ox 11/23/22 07:23 82 11/23/22 07:07 36.8 C 79 20 111/75 97 11/23/22 04:47 95 11/23/22 03:00 36.4 C L 66 20 129/80 95 11/22/22 22:52 36.7 C 82 20 131/75 93 11/22/22 22:39 92 H 11/22/22 22:22 92 H 109/57 L O2 Del Method O2 Del Method 11/23/22 07:23 11/23/22 07:07 Room Air 11/23/22 04:47 Room Air 11/23/22 03:00 Room Air 11/22/22 22:52 Room Air 11/22/22 22:39 11/22/22 22:22 Laboratory Results Abnormal Lab Results 11/23/22 11/23/22 11/23/22 06:07 06:07 06:07 WBC 10.92 H RBC 4.79 Hgb 14.7 D Hct 42.5 MCV 88.7 MCH 30.7 MCHC 34.6 RDW Std Deviation 39.8 RDW Coeff of Abe 12.2 Plt Count 246 MPV 9.7 Sodium 138 Potassium 4.1 Chloride 106 Carbon Dioxide 29 Anion Gap 3 BUN 22 Creatinine 1.01 Est Cr Clr Drug Dosing 94.4 Est GFR ( Amer) 86.9 Est GFR (Non-Af Amer) 75.0 BUN/Creatinine Ratio 21.8 H Glucose 100 H Calcium 9.1 Troponin I High Sens 494.1 H* D TSH 0.659 Diagnostic Findings Echocardiogram performed 11/22/2022: Normal LV systolic function without valvular heart disease. Borderline aortic root dilation. Chest CT was obtained the time admission which revealed an ascending thoracic aortic aneurysm of 4.6 cm. Coronary artery calcification. Chest x-ray obtained the time of admission did not reveal any acute cardiopulmonary process. ECG Additional Comments: Initial EKG at the time of presentation was normal sinus. Atrial fibrillation later developed with a rapid ventricular response and some ST segment changes. PG Care Time/CCT Total # of Minutes Spent Total Time Spent with Patient: Total time spent is greater than 50% in coordination of care (as documented) at patient's floor/unit and/or counseling patient: Coding Level of Care Code 57852 SUB INP/OBS CARE 2/35MIN Diagnoses Atrial fibrillation with RVR I48.91 Thoracic aortic aneurysm I71.20 Coronary artery calcification I25.10; I25.84
--- NOTE | 2022-11-23 10:15 | Electrocardiogram Report ---
Test Reason : Blood Pressure : / mmHG Vent. Rate : 082 BPM Atrial Rate : 082 BPM P-R Int : 190 ms QRS Dur : 078 ms QT Int : 390 ms P-R-T Axes : 037 045 034 degrees QTc Int : 455 ms Poor data quality, interpretation may be adversely affected Normal sinus rhythm Nonspecific T wave abnormality Abnormal ECG When compared with ECG of 22-NOV-2022 01:40, Sinus rhythm has replaced Atrial fibrillation ST no longer depressed in Inferior leads ST no longer depressed in Anterolateral leads Nonspecific T wave abnormality now evident in Anterolateral leads Confirmed by Rajesh Alvares ([id number]) on 11/23/2022 10:15:39 AM Referred By: REFERRED SELF Confirmed By:Tawanda Alvares
--- NOTE | 2022-11-23 12:13 | Discharge Summary ---
Date of Service November 23, 2022 Admission HPI Per Admitting Provider Huy Andino is a 71-year-old male with history of hypertension, hyperlipidemia, chronic DVT on Xarelto anticoagulation and GERD presenting with intractable hiccups. Patient is status post left LYNDA performed at the outpatient surgery center in [place] on November 15. The surgery was well-tolerated with no complications. Patient is uncertain if he had general anesthesia. He presents this evening with complaints of intractable hiccups x3 days. Hiccups became more intense with associated shortness of breath today. He has been on baclofen for the last 2 days which was ordered by his surgeon for management of hiccups. He has also been taking Tylenol as needed for pain. No additional complaints at this time. Upon arrival to the ER patient afebrile, hemodynamically stable. He developed atrial fibrillation with rapid ventricular response with heart rate to 155. Diltiazem drip with bolus initiated. Patient still in atrial fibrillation during my encounter. Heart rate ranging 120s to 140s. He denies chest pain, shortness of breath, dizziness, confusion. No complaints at this time. Diltiazem drip running at 4 mg/h ER course: Magnesium x1 g Diltiazem 25 mg IV x1 then drip Chlorpromazine 50 mg IM (given 00:22) Maalox Principal Diagnosis afib wrvr Discharge Exam The patient is awake, alert and oriented 3, well developed and well nourished, normocephalic and atraumatic, lying in bed and in no acute distress. HEENT--PERRL, EOMI, mucous membranes and oropharynx mildly dry Neck--supple. No JVD. No bruits. Thyroid normal, trachea midline, no adenopathy. Heart--normal S1 and S2. No murmurs, rubs or gallops. Lungs--clear bilaterally, no respiratory distress, no accessory muscle use. Abdomen--normal bowel sounds and soft. Mild epigastric and left sided abdominal pain Extremities--no cyanosis or clubbing. No edema. Dermatologic--normal skin turgor, normal color, no abnormal lymph nodes, no rash. Neurologic--cranial nerves II through XII grossly intact. Rheumatologic--normal range of motion. Psychiatric--normal affect. Discharge Data Allergies Allergy/AdvReac Type Severity Reaction Status Date / Time bee venom protein (honey bee) Allergy Intermediate Hives Verified 11/22/22 00:51 Consultations 11/22/22 02:03 ED Decision to Admit Stat 11/22/22 09:30 Consult Cardiology Routine Ordered Studies 11/22/22 04:47 CT chest diagnostic wo con Urgent Hospital Course (1) Intractable hiccups: 71-year-old male presenting with intractable hiccups. Patient with recent surgery, left hip replacement. He has been taking baclofen with no improvement. Possibly postanesthesia. Check CT chest We will avoid further medications at this time Check phosphorus (2) Atrial fibrillation with RVR: Patient with new onset atrial fibrillation with rapid ventricular response in the ER. Possibly secondary to Thorazine administration as this medication has been seen to trigger A-fib due to anticholinergic effect in the heart. Patient presently on Cardizem drip at 5 mg/h. Heart rate remains elevated. He is asymptomatic at this time and blood pressure is adequate. Converted to normal sinus rhythm overnight Discharge on PO Metoprolol 50mg kenny appreciate cardiology (3) HTN (hypertension): Blood pressure well controlled Diltiazem drip as above for management of atrial fibrillation Continue metoprolol 25 mg p.o. every morning (4) Hyperlipidemia: Chronic. Stable. Continue atorvastatin 20 mg p.o. every morning (5) DVT (deep venous thrombosis): Patient with chronic DVT on Xarelto anticoagulation. He did hold his Xarelto for 3 days prior to his surgery on 11/15/2022. He resumed it the day after surgery on 11/16/2022. Continue Xarelto (6) Status post left hip replacement: Surgery well-tolerated. Pain well controlled. Continue Tylenol as needed for pain Patient is to have bandage changed today F/E/NLR at 80 mL/h x 1 L, check magnesium and phosphorus and replete as needed, heart healthy diet as tolerated Prophylaxiscontinue Xarelto Codefull Dispositionadmit to PCU (7) Elevated troponin: Myocardial infarction type 2 from demand ischemia due to rapid ventricular rate Plan d/c home Total Time Total Time Spent Total Time Spent (In Minutes): 35 Discharge Plan Discharge Items Patient Disposition: Home - Self-Care Reason For Visit: INTRACTABLE HICCUPS, AF WITH RVR Discharge Diagnosis: Afib wrvr, hiccups Activity: Resume your previous activity Non-emergency contact: Primary Care Provider Call non-emergency contact if: you have any medication questions Follow-up/Referrals: Catia Peoples MD [Primary Care Provider] - 11/28/22 11:30 am (Follow up scheduled on 11/28/21 at 11:30) Diet: Regular Addtl Attending Provider Instructions: please make appointment to follow up with your regular PCP Pending Studies at Discharge: No Stand-Alone Forms: My [facility], Smoking Cessation Medications and DC Order Prescriptions: New atorvastatin 40 mg tablet 40 mg PO DAILY Qty: 30 0RF metoprolol succinate [Toprol XL] 50 mg tablet extended release 24 hr 50 mg PO DAILY Qty: 30 0RF Continued sildenafil (pulm.hypertension) 20 mg tablet 50 mg PO DAILY PRN (Reason: sexual activity) Qty: 36 11RF Rx Instructions: TAKES 2 1/2 TABS. triamterene-hydrochlorothiazid 37.5-25 mg tablet 1 tab PO QAM Qty: 90 1RF triamcinolone acetonide 0.1 % Cream 1 applic TOPICAL BID PRN (Reason: Skin Irritation) acetaminophen [Tylenol 8 Hour] 650 mg Tablet Extended Release 1,300 mg PO Q12H PRN (Reason: Pain) epinephrine 0.3 mg/0.3 mL auto-injector 0.3 mg IM DIRECTED PRN (Reason: anaphylaxis) Rx Instructions: 0.3 mg IM as directed PRN; for 2 doses Xarelto 20 mg tablet 20 mg PO QAM pantoprazole [Protonix] 40 mg Tablet,Delayed Release (Dr/Ec) 40 mg PO DAILY PRN (Reason: Acid Reflux) Discontinued metoprolol succinate 25 mg tablet extended release 24 hr 25 mg PO QAM Qty: 90 1RF atorvastatin 20 mg tablet 20 mg PO QAM Qty: 90 1RF Discharge Orders: Discharge Order (Routine); Ordered 11/23/22 Ordered By: Fred Curiel/Other Patient Handouts: Exercise for a Healthier Heart, Medicines for Heart Disease, AFib Admission Data Admit Date/Time: 11/22/22 02:31 Attending Provider: Fred Reeves Admit Provider: Sailaja Parker Primary Care Provider: Catia Peoples Other Providers: Sailaja Parker ; Rajesh Alvares Other Interventions: Discharge Summary Assessment (RN) Last Done: 11/23/22 10:56 Coding Level of Care Code HOSP INP/OBS DISCH >30 MIN Diagnoses Intractable hiccups R06.6 Atrial fibrillation with RVR I48.91 HTN (hypertension) I10 Hyperlipidemia E78.5 DVT (deep venous thrombosis) I82.431 Affected thrombotic vein of extremity: popliteal Chronicity: acute DVT location: lower extremity Laterality: right Status post left hip replacement Z96.642 Elevated troponin R77.8 Time Spent (min) 35
== END 2022-11-23 12:14 | disposition home health service (06) ==
LOC: ED 23:01 → EDINP 11-22 02:31 → INTOOBSV 11-22 02:31 → SUATTDRO 11-22 02:31 → 1E 11-22 04:48 → 2S 11-22 22:34

== ENCOUNTER 2023-12-05 15:05 | Inpatient (IN) ==
--- NOTE | 2023-12-05 15:42 | ED Triage Note ---
Date of Service December 05, 2023 Provider in Triage Author: Candis Uriarte History of Present Illness This patient was briefly evaluated while in triage. An abbreviated physical exam was performed. This patient is a 73-year-old Male who presents to the ED for evaluation of lower abdominal pain. Symptoms started last evening. Subjective fever. Denies n/v, diarrhea, urinary symptoms. Denies abd surgeries. Physical Exam Constitutional: alert and oriented x3. no acute distress. HEENT: normocephalic, atraumatic. normal conjunctiva.PERRLA. EOM's grossly intact. Respiratory: equal chest rise. normal respiratory effort, no accessory muscle use. Cardiovascular: normal heart sounds without murmur. regular rate and rhythm. MSK: moves all 4 extremities spontaneously Psych:appropriate mood and affect. Initial orders for labs and / or imaging were placed and patient was placed in the waiting area until a bed is available. Please see further documentation for the full ED course.
[2023-12-05 16:50] LABS: Albumin Globulin Ratio 1.5 (0.9-2); Albumin Level 4.7 gm/dl (3.4-5.0); BUN Creatinine Ratio 18.4 (10-20); Bilirubin,Total 0.9 mg/dl (0.2-1.0); Creatinine Clr Calc Pharmacy 84.5 ml/min; Est GFR (African American) 83.7 ml/min; Est GFR (Non-African American) 72.2 ml/min; Globulin 3.2 gm/dl (2.5-4.0); Potassium 3.8 mmol/L (3.5-5.1); Total Protein 7.9 gm/dl (6.0-8.3)
[2023-12-05 17:12] LABS: Basophils # (auto) 0.05 K/uL (0.00-0.20); Basophils % (auto) 0.3 %; Eosinophils # (auto) 0.07 K/uL (0.00-0.50); Eosinophils % (auto) 0.4 %; Hematocrit (blood only) 56.3 % (42.0-52.0); Hemoglobin 18.9 g/dl (14.0-18.0); Immature Granulocytes # (auto) 0.11 K/uL (0.01-0.20); Immature Granulocytes % (auto) 0.6 %; Lymphocytes # (auto) 1.51 K/uL (1.20-3.40); Lymphocytes % (auto) 8.4 %; Mean Corpuscular Hgb Conc 33.6 g/dL (32.0-36.0); Mean Corpuscular Volume 92.3 fL (80.0-100.0); Mean Platelet Volume 9.7 fL (9.4-12.4); Monocytes # (auto) 1.91 K/uL (0.11-0.59); Monocytes % (auto) 10.7 %; Neutrophils # (auto) 14.22 K/uL (1.40-6.50); Neutrophils % (auto) 79.6 %; Platelet Count 197 K/uL (130-400); RDW Coefficient of Variation 12.6 % (11.5-14.5); RDW Standard Deviation 42.6 fL (36.4-46.3); White Blood Count 17.87 K/ul (4.8-10.8)
[2023-12-05] MEDS: OPTIRAY 320 500ml IV ONE (17:36)
--- NOTE | 2023-12-05 17:50 | CT Scan Report ---
ABDOMEN AND PELVIS CT WITH IV CONTRAST CT DOSE: 1478.21 mGy.cm HISTORY: Acute lower abdominal pain lower abd pain TECHNIQUE: Multiaxial CT images of the abdomen and pelvis were performed following the IV administrat ion of 85 cc of Optiray, A dose lowering technique was utilized adhering to the principles of ALARA. COMPARISON STUDY: Chest CT 11/22/2022 FINDINGS: Cardiomegaly with extensive coronary artery calcifications. Fusiform dilation of the ascend ing thoracic aorta, 4.3. The lung bases. No free air. Unremarkable spleen, pancreas and adrenal gland s. Distended gallbladder with wall thickening and pericholecystic edema. Cholelithiasis. Moderate int rahepatic and extrahepatic biliary ductal dilation. Common bile duct measures 10 mm. No choledocholit hiasis identified. Unremarkable liver. Patent portal vein. Renal cysts measure up to 8.3 cm on the left. No hydronephrosis. Prostatomegaly. Urinary bladder wall thickening with partial distention. Atherosclerosis of the aorta. No lymphadenopathy. Tiny hiatal he rnia. Moderate wall thickening of the duodenum. Colonic diverticulosis. Normal appendix. Tiny fat ivy led umbilical hernia. Degenerative changes of the spine, pelvis and right hip. Lumbar levoscoliosis. Left hip arthroplasty. IMPRESSION: 1. Cholelithiasis with acute cholecystitis. 2. Mild intrahepatic and extrahepatic biliary ductal dilation without choledocholithiasis identified by CT. Correlation could be made with serum bilirubin. 3. Colonic diverticulosis. 4. Mild aneurysmal dilation of the ascending thoracic aorta is partially imaged. ACT 112: Negative or not required by law. The above report was generated using voice recognition software. It may contain grammatical, syntax o r spelling errors. Electronically signed by: Chris Crocker M.D. 12/05/2023 5:47 PM
--- NOTE | 2023-12-05 17:58 | Electrocardiogram Report ---
Test Reason : Blood Pressure : / mmHG Vent. Rate : 087 BPM Atrial Rate : 087 BPM P-R Int : 150 ms QRS Dur : 080 ms QT Int : 378 ms P-R-T Axes : 085 020 032 degrees QTc Int : 454 ms Sinus rhythm with Premature atrial complexes Otherwise normal ECG When compared with ECG of 22-NOV-2022 22:59, Premature atrial complexes are now Present Nonspecific T wave abnormality no longer present Confirmed by Al Wells ([id number]) on 12/05/2023 5:57:54 PM Referred By: Confirmed By:Al Wells
--- NOTE | 2023-12-05 18:57 | Emergency Department Note ---
ED Provider Note History of Present Illness Chief Complaint: Abdominal Pain Stated Complaint: STOMACH PAIN Time Seen by Provider: 12/05/23 18:39 This patient is a 73-year-old male who presents to the emergency department for evaluation of abdominal pain. Patient states the pain started last night around midnight and continued throughout the night and day. He has had some nausea but has not vomited. Denies any changes in bowel movements. He denies any urinary symptoms. Patient denies any history of similar symptoms. Denies any history of abdominal surgeries. Patient is on Xarelto due to history of DVT and paroxysmal atrial fibrillation. Patient denies any fevers at home. Home Medications Medication Instructions Recorded Confirmed Type acetaminophen 650 mg 1,300 mg PO Q12H PRN Pain 11/22/22 12/05/23 History tablet,extended release (Tylenol 8 Hour) triamcinolone acetonide 0.1 % 1 applic topical BID PRN Skin 11/22/22 12/05/23 History topical cream Irritation metoprolol succinate 50 mg 50 mg PO DAILY #90 tabs 01/02/23 12/05/23 Rx tablet,extended release 24 hr (Toprol XL) sildenafil (pulm.hypertension) 20 50 mg (2.5 x 20 mg) PO DAILY PRN 03/01/23 12/05/23 Rx mg tablet sexual activity #36 tabs epinephrine 0.3 mg/0.3 mL 0.3 mg (0.3 mL) IM DIRECTED PRN 03/31/23 12/05/23 Rx injection, auto-injector anaphylaxis #2 ea triamterene 37.5 1 tab PO QAM #90 tabs 07/25/23 12/05/23 Rx mg-hydrochlorothiazide 25 mg tablet rivaroxaban 20 mg tablet (Xarelto) 20 mg PO QAM #90 tabs 09/27/23 12/05/23 Rx atorvastatin 40 mg tablet 40 mg PO DAILY #90 tabs 11/23/23 12/05/23 Rx hydralazine 20 mg/mL injection 10 mg (0.5 mL) IV Q6H PRN #0 mL 12/07/23 Rx solution morphine 2 mg/mL intravenous 2 mg IV Q4H PRN pain #0 mL 12/07/23 Rx syringe morphine 4 mg/mL intravenous 4 mg IV Q4H PRN pain #0 mL 12/07/23 Rx syringe ondansetron HCl (PF) 4 mg/2 mL 4 mg (2 mL) IV Q4H PRN #0 mL 12/07/23 Rx injection solution Allergies Allergy/AdvReac Type Severity Reaction Status Date / Time bee venom protein (honey bee) Allergy Intermediate Hives Verified 12/05/23 19:36 Past Med/Surg History Medical History Chronic anticoagulation Atrial fibrillation with RVR DVT (deep venous thrombosis) Degenerative arthritis of knee, bilateral Encounter for pre-operative examination History of COVID-19 Dx 09/2020 > symptoms at time of fever, body aches, cough, dyspnea > resolved Osteoarthritis Acid reflux History of skin cancer s/p excision TIA (transient ischemic attack) Per 06/2015 [facility] discharge summary, possible TIA versus vertigo. Unremarkable MRI of brain, carotids, echo. No subsequent issues. HLD (hyperlipidemia) HTN (hypertension) Depression Fatigue Surgical History Status post left hip replacement History of tonsillectomy History of hemorrhoidectomy History of arthroscopy of shoulder Rt x 2 History of colonoscopy History of left knee surgery H/O rotator cuff surgery Family History Father Myocardial infarction Other No family history of adverse response to anesthesia Denies family history of Ovarian cancer Prostate cancer Breast cancer Colorectal cancer Social History Smoking Status: Never smoker Second Hand Exposure: No; Do You Dip or Chew Tobacco: No; Hx Alcohol Use: No Hx Substance Use: No Preferred Language: Honduran Communication Ability: Effective Visual Impairment: No Limitations Hearing Ability: Normal Oceanologist Required: No Beliefs That Will Affect Care: None marital status: Current Living Situation: Spouse current occupational status: retired How many Children do You have: 2 Feels Safe at Home: Yes Childhood Exposure to Second-Hand Smoke: No Diet: regular caffeine: Yes Dental Care, Regularly: Yes Physical Activity Frequency: Daily Seatbelt Use: always Sunscreen Use: Yes (sometimes) Assistive Devices: Cane and Walker Physical Exam Vital Signs Vital Signs - 24 hr 12/05/23 15:40 12/05/23 19:08 12/05/23 19:59 Temperature 36.5 C Temperature Source Temporal Artery Scan Pulse Rate 71 72 Pulse Rate [Finger] 74 Pulse Rhythm Regular Respiratory Rate 20 20 Respiratory Effort / Characteristics Non-Labored Spontaneous Respiratory Depth Normal Blood Pressure 208/98 H Blood Pressure [Right Arm] 196/101 H Blood Pressure Mean 134 Blood Pressure Mean [Right Arm] 132 Pulse Oximetry 97 96 Oxygen Delivery Method Room Air Room Air Sepsis Recent Fever Within 48 Hours No Sepsis New/Unexplained Change in Mental Status No Sepsis Action Taken by Nursing No Action Required VITALS: Vitals are noted on the nurse's note and reviewed by myself. GENERAL: This is a 73-year-old male, uncomfortable appearing, laying on his side. SKIN: The skin was without rashes. HEART: Regular rate and rhythm without murmurs gallops or rubs. LUNGS: Clear to auscultation bilaterally without wheezes, rales or rhonchi. ABDOMEN: Positive bowel sounds x 4. Tenderness to palpation across the upper abdomen. No guarding or rebound tenderness NEURO: Patient was alert and oriented to person place and time. Course Administered Medications Discontinued Medications Diltiazem HCl (Diltiazem Hcl 5 Mg/Ml 5 Ml Vial) 10 mg IV NOW STA Stop: 12/06/23 17:33 Last Admin: 12/06/23 17:45 Dose: Not Given Documented By: SADIE Diltiazem HCl (Diltiazem Hcl 5 Mg/Ml 5 Ml Vial) Confirm Administered Dose 25 mg IV .STK-MED ONE Stop: 12/06/23 17:36 Last Increment: 12/06/23 17:37 Dose: 10 mg Documented By: SADIE Co-signed By: HITESH Diltiazem HCl (Diltiazem Hcl 5 Mg/Ml 5 Ml Vial) 10 mg IV NOW STA Stop: 12/06/23 17:53 Last Admin: 12/06/23 18:55 Dose: Not Given Documented By: KIRTI Heparin Sodium (Porcine) (Heparin Sod (Porcine) 1000 Unit/Ml) 7,000 units IV NOW ONE Stop: 12/06/23 18:09 Last Admin: 12/06/23 19:08 Dose: 7,000 units Documented By: KIRTI Co-signed By: BRITNEY Hydralazine HCl (Hydralazine Hcl 20 Mg/Ml Vial) 10 mg IV Q6H PRN PRN Reason: sbp>170 or dbp>90 Stop: 01/05/24 12:37 Last Admin: 12/06/23 13:32 Dose: 10 mg Documented By: YESY Sodium Chloride (Nss) 500 mls @ 999 mls/hr IV .Q31M ONE Stop: 12/05/23 19:50 Last Infusion: 12/05/23 20:16 Dose: Infused Documented By: Admin: 12/05/23 19:32 Dose: 999 mls/hr Documented By: RICAROD Piperacillin Sod/Tazobactam Sod (Zosyn) 4.5 gm in 100 mls @ 200 mls/hr IV NOW ONE Stop: 12/05/23 19:49 Last Infusion: 12/05/23 20:16 Dose: Infused Documented By: Admin: 12/05/23 19:32 Dose: 200 mls/hr Documented By: RICARDO Lactated Ringer's (Lr) 1,000 mls @ 80 mls/hr IV .[id number] [facility] Stop: 01/04/24 20:59 Last Admin: 12/08/23 13:42 Dose: 80 mls/hr Documented By: Infusion: 12/08/23 13:42 Dose: Infused Documented By: Admin: 12/08/23 03:08 Dose: 80 mls/hr Documented By: Infusion: 12/08/23 03:08 Dose: Infused Documented By: Admin: 12/07/23 14:47 Dose: 80 mls/hr Documented By: Infusion: 12/07/23 14:17 Dose: Infused Documented By: Admin: 12/07/23 01:47 Dose: 80 mls/hr Documented By: Infusion: 12/07/23 01:46 Dose: Infused Documented By: Infusion: 12/06/23 17:44 Dose: 80 mls/hr Documented By: Admin: 12/06/23 14:18 Dose: 125 mls/hr Documented By: Infusion: 12/06/23 14:16 Dose: Infused Documented By: Admin: 12/06/23 06:16 Dose: 125 mls/hr Documented By: Infusion: 12/06/23 05:03 Dose: Infused Documented By: Admin: 12/05/23 21:03 Dose: 125 mls/hr Documented By: RICARDO Acetaminophen (Ofirmev) 1,000 mg in 100 mls @ 400 mls/hr IV Q8H PRN PRN Reason: Fever/Mild Pain (Pain 1,2,3) Stop: 12/08/23 22:32 Last Infusion: 12/06/23 08:57 Dose: Infused Documented By: Admin: 12/06/23 08:31 Dose: 400 mls/hr Documented By: ML Piperacillin Sod/Tazobactam (Sod 4.5 gm/ Dextrose) 100 mls @ 25 mls/hr IV Q8H [facility]; Protocol Stop: 12/16/23 01:59 Last Infusion: 12/08/23 15:05 Dose: Infused Documented By: Admin: 12/08/23 10:37 Dose: 25 mls/hr Documented By: Infusion: 12/08/23 07:13 Dose: Infused Documented By: Admin: 12/08/23 03:08 Dose: 25 mls/hr Documented By: Infusion: 12/07/23 23:04 Dose: Infused Documented By: Admin: 12/07/23 18:28 Dose: 25 mls/hr Documented By: Infusion: 12/07/23 14:40 Dose: Infused Documented By: Admin: 12/07/23 10:25 Dose: 25 mls/hr Documented By: Infusion: 12/07/23 06:21 Dose: Infused Documented By: Admin: 12/07/23 02:09 Dose: 25 mls/hr Documented By: Infusion: 12/06/23 21:37 Dose: Infused Documented By: Admin: 12/06/23 18:28 Dose: 25 mls/hr Documented By: Infusion: 12/06/23 14:55 Dose: Infused Documented By: Admin: 12/06/23 10:44 Dose: 25 mls/hr Documented By: Infusion: 12/06/23 07:17 Dose: Infused Documented By: Admin: 12/06/23 03:14 Dose: 25 mls/hr Documented By: ML Prochlorperazine 5 mg/ Syringe 5 mls @ 5 mls/min IV Q6H PRN PRN Reason: Nausea And Vomiting Stop: 01/05/24 17:59 Last Admin: 12/07/23 01:45 Dose: 5 mls/min Documented By: Admin: 12/06/23 18:28 Dose: 5 mls/min Documented By: KIRTI Diltiazem HCl 125 mg/ Dextrose 125 mls @ 15 mls/hr IV .Q8H20M [facility]; Protocol Stop: 01/05/24 17:59 Last Admin: 12/08/23 13:02 Dose: 15 mg/hr, 15 mls/hr Documented By: OO Co-signed By: ENS Titration: 12/08/23 12:51 Dose: Infused Documented By: OO Co-signed By: ENS Admin: 12/08/23 04:31 Dose: 15 mg/hr, 15 mls/hr Documented By: EUSEBIO Co-signed By: LMP Titration: 12/08/23 04:31 Dose: Infused Documented By: DKW Co-signed By: LMP Admin: 12/07/23 21:12 Dose: 15 mg/hr, 15 mls/hr Documented By: EUSEBIO Co-signed By: KRT Titration: 12/07/23 20:23 Dose: Infused Documented By: DKW Co-signed By: KRT Admin: 12/07/23 12:03 Dose: 15 mg/hr, 15 mls/hr Documented By: OO Co-signed By: KJS Titration: 12/07/23 12:03 Dose: Infused Documented By: OO Co-signed By: KJS Titration: 12/07/23 07:16 Dose: 15 mg/hr, 15 mls/hr Documented By: OO Co-signed By: TLM Admin: 12/07/23 04:31 Dose: 15 mg/hr, 15 mls/hr Documented By: TLM Co-signed By: GLASS TINTER Titration: 12/07/23 04:31 Dose: Infused Documented By: TLM Co-signed By: GLASS TINTER Titration: 12/06/23 21:47 Dose: 15 mg/hr, 15 mls/hr Documented By: KIRTI Co-signed By: JR Titration: 12/06/23 20:40 Dose: 10 mg/hr, 10 mls/hr Documented By: KIRTI Co-signed By: ASW Admin: 12/06/23 18:27 Dose: 5 mg/hr, 5 mls/hr Documented By: KIRTI Co-signed By: POONAM Heparin Sodium/Dextrose (Heparin Sodium/Dextrose) 25,000 units in 500 mls @ 37 mls/hr IV .[id number] [facility]; Protocol Stop: 01/05/24 18:14 Last Admin: 12/08/23 14:59 Dose: 1,850 units/hr, 37 mls/hr Documented By: OO Co-signed By: ENS Titration: 12/08/23 14:59 Dose: Infused Documented By: OO Co-signed By: ENS Titration: 12/08/23 13:48 Dose: 1,850 units/hr, 37 mls/hr Documented By: OO Co-signed By: KJS Titration: 12/08/23 06:58 Dose: 1,750 units/hr, 35 mls/hr Documented By: EUSEBIO Co-signed By: HEMANTH Admin: 12/08/23 01:41 Dose: 1,650 units/hr, 33 mls/hr Documented By: EUSEBIO Co-signed By: SHARRON Titration: 12/08/23 01:32 Dose: Infused Documented By: DKW Co-signed By: KRT Admin: 12/07/23 10:22 Dose: 1,650 units/hr, 33 mls/hr Documented By: OO Co-signed By: KJS Titration: 12/07/23 10:18 Dose: Infused Documented By: OO Co-signed By: KJS Titration: 12/07/23 07:16 Dose: 1,650 units/hr, 33 mls/hr Documented By: OO Co-signed By: ZOE Titration: 12/07/23 04:30 Dose: 1,650 units/hr, 33 mls/hr Documented By: TLM Co-signed By: GLASS TINTER Admin: 12/06/23 19:08 Dose: 1,650 units/hr, 33 mls/hr Documented By: KIRTI Co-signed By: BRITNEY Magnesium Sulfate/Dextrose (Magnesium Sulfate / D5w) 1 gm in 100 mls @ 50 mls/hr IV Q2H [facility] Stop: 12/06/23 23:14 Last Infusion: 12/06/23 23:25 Dose: Infused Documented By: Admin: 12/06/23 21:46 Dose: 100 mls/hr Documented By: Infusion: 12/06/23 21:45 Dose: Infused Documented By: Admin: 12/06/23 20:22 Dose: 50 mls/hr Documented By: KIRTI Potassium Chloride (K Kamran / Wtr) 10 meq in 100 mls @ 100 mls/hr IV Q1H [facility] Stop: 12/08/23 09:44 Last Infusion: 12/08/23 10:21 Dose: Infused Documented By: OTamiko Admin: 12/08/23 09:13 Dose: 100 mls/hr Documented By: Infusion: 12/08/23 09:05 Dose: Infused Documented By: Admin: 12/08/23 08:05 Dose: 100 mls/hr Documented By: KEEGAN Ioversol (Optiray 320 500ml) 85 ml IV ONCE ONE Stop: 12/05/23 17:37 Last Admin: 12/05/23 17:36 Dose: 85 ml Documented By: SHEA Metoprolol Tartrate (Metoprolol Tartrate 1 Mg/Ml Vial) 2.5 mg IV Q6 [facility] Stop: 01/05/24 05:59 Last Admin: 12/06/23 11:40 Dose: 2.5 mg Documented By: Admin: 12/06/23 05:17 Dose: 2.5 mg Documented By: MARY Metoprolol Tartrate (Metoprolol Tartrate 1 Mg/Ml Vial) 2.5 mg IV NOW STA Stop: 12/06/23 12:36 Last Admin: 12/06/23 12:57 Dose: 2.5 mg Documented By: YESY Metoprolol Tartrate (Metoprolol Tartrate 1 Mg/Ml Vial) 5 mg IV NOW STA Stop: 12/07/23 06:09 Last Admin: 12/07/23 06:20 Dose: 5 mg Documented By: ZOE Metoprolol Tartrate (Metoprolol Tartrate 1 Mg/Ml Vial) 2.5 mg IV Q6 [facility] Stop: 01/06/24 17:59 Last Admin: 12/08/23 13:38 Dose: 2.5 mg Documented By: Admin: 12/08/23 05:52 Dose: 2.5 mg Documented By: Admin: 12/08/23 00:10 Dose: 2.5 mg Documented By: Admin: 12/07/23 18:27 Dose: 2.5 mg Documented By: OO Morphine Sulfate (Morphine Sulfate 10 Mg/Ml Carp/Vial) 6 mg IV NOW STA Stop: 12/05/23 19:18 Last Admin: 12/05/23 19:31 Dose: 6 mg Documented By: RICARDO Morphine Sulfate (Morphine Sulfate 2 Mg/Ml Carp) 2 mg IV Q4H PRN PRN Reason: Moderate Pain (4,5,6) on NRS Stop: 12/19/23 22:32 Last Admin: 12/08/23 15:00 Dose: 2 mg Documented By: OTamiko Admin: 12/07/23 19:54 Dose: 2 mg Documented By: Admin: 12/07/23 10:18 Dose: 2 mg Documented By: Admin: 12/06/23 03:02 Dose: 2 mg Documented By: MARY Morphine Sulfate (Morphine Sulfate 4 Mg/Ml 1 Ml Carp\Vial) 4 mg IV Q4H PRN PRN Reason: Severe Pain (7,8,9,10) on NRS Stop: 12/19/23 22:32 Last Admin: 12/07/23 01:44 Dose: 4 mg Documented By: Admin: 12/06/23 10:41 Dose: 4 mg Documented By: Admin: 12/06/23 06:16 Dose: 4 mg Documented By: MARY Ondansetron HCl (Ondansetron Inj 2 Mg/Ml 2 Ml Vial) 4 mg IV NOW STA Stop: 12/05/23 19:18 Last Admin: 12/05/23 19:31 Dose: 4 mg Documented By: RICARDO Ondansetron HCl (Ondansetron Inj 2 Mg/Ml 2 Ml Vial) 4 mg IV Q4H PRN PRN Reason: Nausea Stop: 01/04/24 22:32 Last Admin: 12/06/23 17:53 Dose: 4 mg Documented By: Admin: 12/06/23 14:55 Dose: 4 mg Documented By: YESY Medical Decision Making Differential Diagnosis Appendicitis, testicular torsion, infections, diverticulitis, UTI, obstruction, mesenteric ischemia, aortic pathology, inflammatory bowel disease, renal colic, PUD, pancreatitis, biliary pathology, hernia, volvulus, constipation, as well as other pathologies. Home Medications was personally reviewed by me Laboratory Data Attestation: I reviewed the patient's lab results. 12/08/23 06:38 03/08/24 06:38 Lab Results 12/05/23 Range/Units 16:12 WBC 17.87 H (4.8-10.8) K/ul RBC 6.10 (4.70-6.10) M/uL Hgb 18.9 H (14.0-18.0) g/dl Hct 56.3 H (42.0-52.0) % MCV 92.3 (80.0-100.0) fL MCH 31.0 (25.0-34.0) pg MCHC 33.6 (32.0-36.0) g/dL RDW Std Deviation 42.6 (36.4-46.3) fL RDW Coeff of Abe 12.6 (11.5-14.5) % Plt Count 197 (130-400) K/uL MPV 9.7 (9.4-12.4) fL Immature Gran % (Auto) 0.6 % Neut % (Auto) 79.6 % Lymph % (Auto) 8.4 % [place] % (Auto) 10.7 % Eos % (Auto) 0.4 % Baso % (Auto) 0.3 % Neut # (Auto) 14.22 H (1.40-6.50) K/uL Lymph # (Auto) 1.51 (1.20-3.40) K/uL [place] # (Auto) 1.91 H (0.11-0.59) K/uL Eos # (Auto) 0.07 (0.00-0.50) K/uL Baso # (Auto) 0.05 (0.00-0.20) K/uL Immature Gran # (Auto) 0.11 (0.01-0.20) K/uL Sodium 139 (136-145) mmol/L Potassium 3.8 (3.5-5.1) mmol/L Chloride 102 (98-107) mmol/L Carbon Dioxide 28 (21-32) mmol/L Anion Gap 9 (3-11) BUN 19 (6-23) mg/dl Creatinine 1.03 (0.6-1.4) mg/dl Est Cr Clr Drug Dosing 84.5 ml/min Est GFR ( Amer) 83.7 ml/min Est GFR (Non-Af Amer) 72.2 ml/min BUN/Creatinine Ratio 18.4 (10-20) Glucose 123 H (70-99(Fasting)) mg/dl Calcium 10.0 (8.6-10.3) mg/dl Total Bilirubin 0.9 (0.2-1.0) mg/dl AST 21 (13-39) U/L ALT 34 (7-52) U/L Alkaline Phosphatase 76 (34-104) U/L Troponin I High Sens 26.8 H (0-20) pg/ml Total Protein 7.9 (6.0-8.3) gm/dl Albumin 4.7 (3.4-5.0) gm/dl Globulin 3.2 (2.5-4.0) gm/dl Albumin/Globulin Ratio 1.5 (0.9-2) Lipase 22 (11-82) U/L Imaging Data Attestation: I personally reviewed and interpreted this imaging study as follows: Radiologist's Impression: Abdomen/Pelvis CT 12/05/23 15:[address] WITH IV CONTRAST CT DOSE: 1478.21 mGy.cm HISTORY: Acute lower abdominal pain lower abd pain TECHNIQUE: Multiaxial CT images of the abdomen and pelvis were performed following the IV administration of 85 cc of Optiray, A dose lowering technique was utilized adhering to the principles of ALARA. COMPARISON STUDY: Chest CT 11/22/2022 FINDINGS: Cardiomegaly with extensive coronary artery calcifications. Fusiform dilation of the ascending thoracic aorta, 4.3. The lung bases. No free air. Unremarkable spleen, pancreas and adrenal glands. Distended gallbladder with wall thickening and pericholecystic edema. Cholelithiasis. Moderate intrahepatic and extrahepatic biliary ductal dilation. Common bile duct measures 10 mm. No choledocholithiasis identified. Unremarkable liver. Patent portal vein. Renal cysts measure up to 8.3 cm on the left. No hydronephrosis. Prostatomegaly. Urinary bladder wall thickening with partial distention. Atherosclerosis of the aorta. No lymphadenopathy. Tiny hiatal hernia. Moderate wall thickening of the duodenum. Colonic diverticulosis. Normal appendix. Tiny fat filled umbilical hernia. Degenerative changes of the spine, pelvis and right hip. Lumbar levoscoliosis. Left hip arthroplasty. IMPRESSION: 1. Cholelithiasis with acute cholecystitis. 2. Mild intrahepatic and extrahepatic biliary ductal dilation without choledocholithiasis identified by CT. Correlation could be made with serum bilirubin. 3. Colonic diverticulosis. 4. Mild aneurysmal dilation of the ascending thoracic aorta is partially imaged. ACT 112: Negative or not required by law. The above report was generated using voice recognition software. It may contain grammatical, syntax or spelling errors. Electronically signed by: Chris Crocker M.D. 12/05/2023 5:47 PM MDM Narrative Continuous supervisor core shop: Order was placed for continuous supervisor core shop. Patient was placed on the supervisor core shop. Patient was noted to be in normal sinus rhythm at an initial rate of 70 bpm. The patient is a 73-year-old male who presents today complaining of upper abdominal pain. Labs revealed a leukocytosis of 17,000. Hgb slightly elevated. Renal function WNL. Bilirubin and LFTs within normal limits. CT of the abdomen/pelvis performed and shows cholecystitis. Also noted to have mild intrahepatic and extrahepatic ductal dilatation without obvious choledocholithiasis. Patient was given a dose of Zosyn as well as some morphine and Zofran for symptoms. General surgery was consulted and recommended admission to medicine due to chronic anticoagulation and need for possible MRCP. General surgery consulted and agreed to evaluate the patient for further care. Impression Acute cholecystitis Discharge Plan Visit Data Chief Complaint: Abdominal Pain Stated Complaint: STOMACH PAIN ED Provider: Olinda [facility] ED Midlevel Provider: Gale Waldrop Discharge Problem: Acute cholecystitis Patient Disposition: Admitted As Inpatient Discharge Instructions Interventions: ED Discharge Assessment Last Done: 12/07/23 00:35
[2023-12-05] MEDS: ONDANSETRON INJ 2 MG/ML 2 ML VIAL IV STA (19:31)
[2023-12-05] MEDS: MoRPHine SULFATE 10 MG/ML CARP/VIAL IV STA (19:31)
[2023-12-05] MEDS: PIPERACILLIN/TAZOBACTAM 4.5 GM/100 ML BAG IV ONE (19:32)
[2023-12-05] MEDS: SODIUM CHLORIDE 0.9% 500 ML IV ONE (19:32)
[2023-12-05 19:35] LABS: Troponin I High Sensitivity 26.8 pg/ml (0-20)
--- NOTE | 2023-12-05 20:19 | History & Physical Report ---
Date of Service December 05, 2023 Assessment & Plan (1) Acute cholecystitis: Plan: Acute cholecystitis CTA/P: Acute cholecystitis cholelithiasis. Mild intrahepatic and extrahepatic biliary ductal dilation without choledocholithiasis. No transaminitis or hyperbilirubinemia is present. MRCP ordered. Surgery consulted, if stones on MRCP --> +GI consult for ERCP Continue Zosyn Continue morphine, Zofran LR 120 cc/h, n.p.o. (2) Coronary artery calcification: Plan: CAD Has seen cardiology in the past, suspected to have underlying occult CAD, has had a history of troponin leak with RVR in the past however no anginal symptoms. No history of heart failure. Echo 11/22/2022 with EF 65 to 70%, normal wall motion and systolic function, no significant valvular disease Patient reports he is able to go up 2 flights of stairs with some dyspnea but no chest pain or angina, and shortness of breath he feels is proportional to the exercise and recovers quickly with rest. Denies chest pain at rest No chest pain at time of admitting assessment, reports prior to coming in and receiving morphine he did have mild low substernal pressure which has since completely resolved Follows with [facility] cardiology. Consulted for preoperative risk assessment. No signs of ACS on admission Initial troponin 26.8, EKG without acute ischemic changes. Troponin trended. Echo pending. Metoprolol converted to IV while n.p.o. (3) Atrial fibrillation with RVR: Plan: Atrial fibrillation, paroxysmal, on Xarelto Xarelto held. Next dose due 10 AM 12/06/2023. May transition to low-dose heparin at that time and pause this 6 hours prior to anticipated surgery. Patient is currently in sinus and has only had 1 episode of A-fib which may have been provoked in the setting of surgery Beta-giovani converted to IV while n.p.o. (4) HTN (hypertension): Plan: Patient took triamterenehydrochlorothiazide this morning. Took metoprolol 50 mg succinate this morning Patient with adequate control at time of reassessment but remains hypertensive, labetalol on-call for severe hypertension (5) Hyperlipidemia: Plan: Atorvastatin held while n.p.o. (6) Thoracic ascending aortic aneurysm: Plan: Ascending thoracic aorta aneurysm CTchest 2/200/23 with 4.6 cm aneurysmal dilatation, stable, 1 year surveillance imaging - Avoid fluoroquinolones (7) History of DVT (deep vein thrombosis): Plan: Patient reports history of right lower extremity DVT postoperatively, has been on Xarelto both for this and A-fib Xarelto held, may transition to low-dose heparin nomogram 3/6 at 10am and hold periop Plan DVT PPx: anticoagulated Diet: NPO, IVFM LR CODE: DNR/DNI Dispo: PCU History of Present Illness Primary Care Provider: Catia Peoples MD 73-year-old male with past medical history of A-fib RVR on DOAC, coronary artery calcification with a past history of mild troponin elevation with demand during A-fib with no history of stents, thoracic aortic aneurysm 4.6 cm stable on repeat CTs who presents to the hospital with 1 day of abdominal pain, nausea and is found Abdominal pain 7/10 x1 day. 0/10 post medications. No history of similar pain. No appetite, did not eat today. Eating did not increase his pain. Last BM was today, brown. No bloody, black, or jacqueline colored movements. Reports he has both R rib pain, and some low mid sternal chest pain today. Chest pain did not radiate into his neck or shoulder. No associated shortness of breath with the pain. Normally takes walks daily, goes up 2 flights of stairs at his home which he sometimes gets a little winded but has no chest pain or angina. Hx of one episode of Afib RVR in [facility] after having his hip replaced last year 2022. Hip replacement otherwise went well, no issues with anesthesia. Last took Xarelto 10am this morning. Also took metorpolol. Also with history of RIGHT leg DVT postoperatively in 2021. No dysuria, endorses polyuria yesterday and today, no dysuria. Medical History: Reviewed Medications: Reviewed Surgical History: Reviewed Family history: Reviewed Allergies: Reviewed Social History: No tobacco. ETOH 2-3 dirnks per week, beer. No history of shakes/ Code Status: Full Code Allergies Allergy/AdvReac Type Severity Reaction Status Date / Time bee venom protein (honey bee) Allergy Intermediate Hives Verified 12/05/23 19:36 Home Medications Medication Instructions Recorded Confirmed Type acetaminophen 650 mg 1,300 mg PO Q12H PRN Pain 11/22/22 12/05/23 History tablet,extended release (Tylenol 8 Hour) triamcinolone acetonide 0.1 % 1 applic topical BID PRN Skin 11/22/22 12/05/23 History topical cream Irritation metoprolol succinate 50 mg 50 mg PO DAILY #90 tabs 01/02/23 12/05/23 Rx tablet,extended release 24 hr (Toprol XL) sildenafil (pulm.hypertension) 20 50 mg (2.5 x 20 mg) PO DAILY PRN 03/01/23 12/05/23 Rx mg tablet sexual activity #36 tabs epinephrine 0.3 mg/0.3 mL 0.3 mg (0.3 mL) IM DIRECTED PRN 03/31/23 12/05/23 Rx injection, auto-injector anaphylaxis #2 ea triamterene 37.5 1 tab PO QAM #90 tabs 07/25/23 12/05/23 Rx mg-hydrochlorothiazide 25 mg tablet rivaroxaban 20 mg tablet (Xarelto) 20 mg PO QAM #90 tabs 09/27/23 12/05/23 Rx atorvastatin 40 mg tablet 40 mg PO DAILY #90 tabs 11/23/23 12/05/23 Rx Past Med/Surg History Medical History Chronic anticoagulation Atrial fibrillation with RVR DVT (deep venous thrombosis) Degenerative arthritis of knee, bilateral Encounter for pre-operative examination History of COVID-19 Dx 09/2020 > symptoms at time of fever, body aches, cough, dyspnea > resolved Osteoarthritis Acid reflux History of skin cancer s/p excision TIA (transient ischemic attack) Per 06/2015 [facility] discharge summary, possible TIA versus vertigo. Unremarkable MRI of brain, carotids, echo. No subsequent issues. HLD (hyperlipidemia) HTN (hypertension) Depression Fatigue Surgical History Status post left hip replacement History of tonsillectomy History of hemorrhoidectomy History of arthroscopy of shoulder Rt x 2 History of colonoscopy History of left knee surgery H/O rotator cuff surgery Family History Father Myocardial infarction Other No family history of adverse response to anesthesia Denies family history of Ovarian cancer Prostate cancer Breast cancer Colorectal cancer Social History Smoking Status: Never smoker Second Hand Exposure: No; Do You Dip or Chew Tobacco: No; Hx Alcohol Use: No Hx Substance Use: No Preferred Language: Croatian Communication Ability: Effective Visual Impairment: No Limitations Hearing Ability: Normal Furnace Reliner Required: No Beliefs That Will Affect Care: None marital status: Current Living Situation: Spouse current occupational status: retired How many Children do You have: 2 Feels Safe at Home: Yes Childhood Exposure to Second-Hand Smoke: No Diet: regular caffeine: Yes Dental Care, Regularly: Yes Physical Activity Frequency: Daily Seatbelt Use: always Sunscreen Use: Yes (sometimes) Assistive Devices: Walker Physical Exam Physical Exam: General: A&Ox3. NAD. Cooperative. HEENT: Atraumatic, normocephalic. Vision/hearing intact Pulm: CTAB A&P. -wheezes, -rales, -rhonchi. Symmetrical chest rise. No increased work of breathing. No respiratory distress. Cardiac: RRR, -mrg. Radial pulses intact and symmetrical. Abdominal: RUQ nontender at time of admit. Pt receiped morphine, pt reports RUQ palpation had caused pain earlier. No rebound/guarding. Results & Data Results & Data Vital Signs (Past 12 Hours) Vital Signs Temp Pulse Pulse Resp BP BP Pulse Ox 12/05/23 19:59 74 20 196/101 H 96 12/05/23 19:08 72 12/05/23 15:40 36.5 C 71 20 208/98 H 97 O2 Del Method 12/05/23 19:59 Room Air 12/05/23 19:08 12/05/23 15:40 Room Air PG Care Time/CCT Total # of Minutes Spent Total Time Spent with Patient: Total time spent is greater than 50% in coordination of care (as documented) at patient's floor/unit and/or counseling patient: Coding Level of Care Code 90694 INT INP/OBS CARE 3/75MIN Diagnoses Acute cholecystitis K81.0 Coronary artery calcification I25.10; I25.84 Atrial fibrillation with RVR I48.91 HTN (hypertension) I10 Hyperlipidemia E78.5 Thoracic ascending aortic aneurysm I71.21 History of DVT (deep vein thrombosis) Z86.718
[2023-12-05] MEDS: LACTATED RINGER'S 1,000 ML IV SCH (21:03)
[2023-12-05 21:48] LABS: Appearance Urine Clear (Clear); Bacteria Urine Automated Negative (Negative); Bilirubin Urine Negative (Negative); Blood Urine 1+ (Negative); Cast Urine Automated 0 /lpf (0-5); Color Urine Yellow; Epithelial Cell Urine Auto 0-5 /lpf (0-5); Glucose Urine UA Negative (Negative); Ketones Urine Negative (Negative); Leukocyte Esterase Urine Negative (Negative); Nitrite Urine Negative (Negative); Protein Urine 1+ (Negative); RBC Urine Automated 0-4 /hpf (0-4); Specific Gravity Urine > 1.045 (1.000-1.030); Urobilinogen Urine Negative (Negative); pH Urine 5.5 (4.5-7.5)
--- NOTE | 2023-12-05 22:31 | Magnetic Resonance Report ---
Exam(s): MRI MRCP EXAM: MR Abdomen Without Intravenous Contrast, MRCP Protocol CLINICAL HISTORY: Reason for exam: acute oanh, ?cholelithiasis. TECHNIQUE: Multiplanar magnetic resonance images of the abdomen without intravenous contrast using MRCP protocol. COMPARISON: CT abdomen and pelvis from December 05, 2023 FINDINGS: Bile ducts: The common bile duct is upper limits of normal measuring 10 mm in diameter. No choledocholithiasis is identified. Gallbladder: The gallbladder is mildly dilated measuring 5.5 cm short axis diameter. There are several calcified gallstones within it measuring up to 2.3 cm in diameter. There is slight wall thickening and a thin rim of pericholecystic fluid suggesting acute cholecystitis. Liver: There is fatty infiltration of the liver. No focal liver mass lesion is seen. Pancreas: Unremarkable. No ductal dilation. Spleen: Unremarkable. No splenomegaly. Adrenals: Unremarkable. No mass. Kidneys and ureters: There are simple cysts in both kidneys measuring up to 7.7 cm in the left. No follow-up is required. No hydronephrosis. Stomach and bowel: Unremarkable. No obstruction. IMPRESSION: 1. The gallbladder is mildly dilated measuring 5.5 cm short axis diameter. There are several calcified gallstones within it measuring up to 2.3 cm in diameter. There is slight wall thickening and a thin rim of pericholecystic fluid suggesting acute cholecystitis. 2. The common bile duct is upper limits of normal measuring 10 mm in diameter. No choledocholithiasis is identified. 3. There are simple cysts in both kidneys measuring up to 7.7 cm in the left. No follow-up is required. Electronically signed by: Grayson Parker MD 12/05/23 22:30 PM
[2023-12-05] MEDS ORDERED: LABETALOL HCL IV 5 MG/ML 20ML IV PRN (22:33)
--- NOTE | 2023-12-05 23:14 | Surgery Consultation ---
Date of Consultation December 05, 2023 Assessment & Plan (1) Acute cholecystitis: (2) History of DVT (deep vein thrombosis): (3) Atrial fibrillation with RVR: (4) Elevated troponin: Plan 73-year-old gentleman presents to the emergency department with acute cholecystitis with ductal dilatation but normal LFTs. He does have a cardiac history and is on Xarelto. He did take his Xarelto this morning. He is being admitted to the hospitalist service. MRCP has been ordered to further assess the bile ducts. Will place him on Zosyn. We will hold the Xarelto for now. cardiac consultation to follow in the morning. We will hold off on operation for now given the cardiac status and Xarelto. Will continue to monitor. N.p.o. and IV fluids. History of Present Illness Reason for Consultation: acute cholecystitis with possible choledocholithiasis Requesting Physician: Tyrone Watkins MD Attending Physician: Tyrone Watkins MD History of Present Illness 74-year-old gentleman presents with a 2-day history of pain in his right upper quadrant epigastric region. Is accompanied by nausea. He denies fevers or chills. He has never had pain like this in the past. Prior to the pain he did eat venison pot pie. He is on Xarelto for DVT and A-fib. He does have a history of coronary artery disease and demand ischemia. His troponin is slightly elevated today. He did take his Xarelto this morning. CT scan demonstrates what appears to be acute cholecystitis with dilated intra and extrahepatic ducts. Elevated white count with normal LFTs. Allergies Allergy/AdvReac Type Severity Reaction Status Date / Time bee venom protein (honey bee) Allergy Intermediate Hives Verified 12/05/23 19:36 Home Medications Medication Instructions Recorded Confirmed Type acetaminophen 650 mg 1,300 mg PO Q12H PRN Pain 11/22/22 12/05/23 History tablet,extended release (Tylenol 8 Hour) triamcinolone acetonide 0.1 % 1 applic topical BID PRN Skin 11/22/22 12/05/23 History topical cream Irritation metoprolol succinate 50 mg 50 mg PO DAILY #90 tabs 01/02/23 12/05/23 Rx tablet,extended release 24 hr (Toprol XL) sildenafil (pulm.hypertension) 20 50 mg (2.5 x 20 mg) PO DAILY PRN 05/31/23 03/05/24 Rx mg tablet sexual activity #36 tabs epinephrine 0.3 mg/0.3 mL 0.3 mg (0.3 mL) IM DIRECTED PRN 03/31/23 12/05/23 Rx injection, auto-injector anaphylaxis #2 ea triamterene 37.5 1 tab PO QAM #90 tabs 07/25/23 12/05/23 Rx mg-hydrochlorothiazide 25 mg tablet rivaroxaban 20 mg tablet (Xarelto) 20 mg PO QAM #90 tabs 09/27/23 12/05/23 Rx atorvastatin 40 mg tablet 40 mg PO DAILY #90 tabs 11/23/23 12/05/23 Rx Patient History Medical History Chronic anticoagulation Atrial fibrillation with RVR DVT (deep venous thrombosis) Degenerative arthritis of knee, bilateral Encounter for pre-operative examination History of COVID-19 Dx 09/2020 > symptoms at time of fever, body aches, cough, dyspnea > resolved Osteoarthritis Acid reflux History of skin cancer s/p excision TIA (transient ischemic attack) Per 06/2015 [facility] discharge summary, possible TIA versus vertigo. Unremarkable MRI of brain, carotids, echo. No subsequent issues. HLD (hyperlipidemia) HTN (hypertension) Depression Fatigue Surgical History Status post left hip replacement History of tonsillectomy History of hemorrhoidectomy History of arthroscopy of shoulder Rt x 2 History of colonoscopy History of left knee surgery H/O rotator cuff surgery Family History Father Myocardial infarction Other No family history of adverse response to anesthesia Denies family history of Ovarian cancer Prostate cancer Breast cancer Colorectal cancer Social History Smoking Status: Never smoker Second Hand Exposure: No; Do You Dip or Chew Tobacco: No; Hx Alcohol Use: No Hx Substance Use: No Preferred Language: Frisian Communication Ability: Effective Visual Impairment: No Limitations Hearing Ability: Normal Hospital Medicine Director Required: No Beliefs That Will Affect Care: None marital status: Current Living Situation: Spouse current occupational status: retired How many Children do You have: 2 Feels Safe at Home: Yes Childhood Exposure to Second-Hand Smoke: No Diet: regular caffeine: Yes Dental Care, Regularly: Yes Physical Activity Frequency: Daily Seatbelt Use: always Sunscreen Use: Yes (sometimes) Assistive Devices: Walker Review of Systems Review of Systems: All systems reviewed & are unremarkable except as noted in HPI & below Physical Exam Constitutional: WD/WN, vitals as above Eyes: PERRL, conjunctivae normal, anicteric sclerae Neck: trachea midline, no thyromegaly Respiratory: normal respiratory effort; no respiratory distress and no labored breathing Cardiovascular: Rate/Rhythm: regular rate and regular rhythm Gastrointestinal (Abdomen): Inspection/Auscultation: abdomen normal to inspection; abdomen not distended Percussion/Palpation: + abdomen tender ( Epigastric right upper quadrant), abdomen soft and + hernia ( umbilical, small, reducible); no guarding and abdomen not rigid Skin: no rashes, warm and dry Psychiatric: A+Ox3, euthymic affect Results & Data Vital Signs (Past 12 Hours) Vital Signs Temp Pulse Pulse Resp BP BP Pulse Ox 12/05/23 22:33 75 18 190/99 H 94 12/05/23 19:59 74 20 196/101 H 96 12/05/23 19:08 72 12/05/23 15:40 36.5 C 71 20 208/98 H 97 O2 Del Method 12/05/23 22:33 Room Air 12/05/23 19:59 Room Air 12/05/23 19:08 12/05/23 15:40 Room Air Laboratory Results 12/05/23 12/05/23 12/05/23 Range/Units 20:58 20:55 16:12 WBC 17.87 H (4.8-10.8) K/ul RBC 6.10 (4.70-6.10) M/uL Hgb 18.9 H (14.0-18.0) g/dl Hct 56.3 H (42.0-52.0) % MCV 92.3 (80.0-100.0) fL MCH 31.0 (25.0-34.0) pg MCHC 33.6 (32.0-36.0) g/dL RDW Std Deviation 42.6 (36.4-46.3) fL RDW Coeff of Abe 12.6 (11.5-14.5) % Plt Count 197 (130-400) K/uL MPV 9.7 (9.4-12.4) fL Immature Gran % (Auto) 0.6 % Neut % (Auto) 79.6 % Lymph % (Auto) 8.4 % [place] % (Auto) 10.7 % Eos % (Auto) 0.4 % Baso % (Auto) 0.3 % Neut # (Auto) 14.22 H (1.40-6.50) K/uL Lymph # (Auto) 1.51 (1.20-3.40) K/uL [place] # (Auto) 1.91 H (0.11-0.59) K/uL Eos # (Auto) 0.07 (0.00-0.50) K/uL Baso # (Auto) 0.05 (0.00-0.20) K/uL Immature Gran # (Auto) 0.11 (0.01-0.20) K/uL Sodium 139 (136-145) mmol/L Potassium 3.8 (3.5-5.1) mmol/L Chloride 102 (98-107) mmol/L Carbon Dioxide 28 (21-32) mmol/L Anion Gap 9 (3-11) BUN 19 (6-23) mg/dl Creatinine 1.03 (0.6-1.4) mg/dl Est Cr Clr Drug Dosing 84.5 ml/min Est GFR ( Amer) 83.7 ml/min Est GFR (Non-Af Amer) 72.2 ml/min BUN/Creatinine Ratio 18.4 (10-20) Glucose 123 H (70-99(Fasting)) mg/dl Calcium 10.0 (8.6-10.3) mg/dl Total Bilirubin 0.9 (0.2-1.0) mg/dl AST 21 (13-39) U/L ALT 34 (7-52) U/L Alkaline Phosphatase 76 (34-104) U/L Troponin I High Sens 25.3 H 26.8 H (0-20) pg/ml Total Protein 7.9 (6.0-8.3) gm/dl Albumin 4.7 (3.4-5.0) gm/dl Globulin 3.2 (2.5-4.0) gm/dl Albumin/Globulin Ratio 1.5 (0.9-2) Lipase 22 (11-82) U/L Urine Color Yellow Urine Appearance Clear (Clear) Urine pH 5.5 (4.5-7.5) Ur Specific [place] > 1.045 H (1.000-1.030) Urine Protein 1+ H (Negative) Urine Glucose (UA) Negative (Negative) Urine Ketones Negative (Negative) Urine Blood 1+ H (Negative) Urine Nitrite Negative (Negative) Urine Bilirubin Negative (Negative) Urine Urobilinogen Negative (Negative) Ur Leukocyte Esterase Negative (Negative) Urine WBC (Auto) 1-5 (0-5) /hpf Urine RBC (Auto) 0-4 (0-4) /hpf U Hyaline Cast (Auto) 0 (0-5) /lpf U Epithel Cells (Auto) 0-5 (0-5) /lpf Urine Bacteria (Auto) Negative (Negative) Diagnostic Findings ABDOMEN AND PELVIS CT WITH IV CONTRAST CT DOSE: 1478.21 mGy.cm HISTORY: Acute lower abdominal pain lower abd pain TECHNIQUE: Multiaxial CT images of the abdomen and pelvis were performed following the IV administration of 85 cc of Optiray, A dose lowering technique was utilized adhering to the principles of ALARA. COMPARISON STUDY: Chest CT 11/22/2022 FINDINGS: Cardiomegaly with extensive coronary artery calcifications. Fusiform dilation of the ascending thoracic aorta, 4.3. The lung bases. No free air. Unremarkable spleen, pancreas and adrenal glands. Distended gallbladder with wall thickening and pericholecystic edema. Cholelithiasis. Moderate intrahepatic and extrahepatic biliary ductal dilation. Common bile duct measures 10 mm. No choledocholithiasis identified. Unremarkable liver. Patent portal vein. Renal cysts measure up to 8.3 cm on the left. No hydronephrosis. Prostatomegaly. Urinary bladder wall thickening with partial distention. Atherosclerosis of the aorta. No lymphadenopathy. Tiny hiatal hernia. Moderate wall thickening of the duodenum. Colonic diverticulosis. Normal appendix. Tiny fat filled umbilical hernia. Degenerative changes of the spine, pelvis and right hip. Lumbar levoscoliosis. Left hip arthroplasty. IMPRESSION: 1. Cholelithiasis with acute cholecystitis. 2. Mild intrahepatic and extrahepatic biliary ductal dilation without choledocholithiasis identified by CT. Correlation could be made with serum bilirubin. 3. Colonic diverticulosis. 4. Mild aneurysmal dilation of the ascending thoracic aorta is partially imaged.
[2023-12-06] MEDS: MoRPHine SULFATE 2 MG/ML CARP IV PRN (03:02)
[2023-12-06] MEDS: PIPERACILLIN/TAZOBACTAM 4.5 GM in DEXTROSE 5% MINI-B 100 ML IV SCH (03:14)
[2023-12-06 04:21] LABS: Basophils # (auto) 0.02 K/uL (0.00-0.20); Basophils % (auto) 0.1 %; Eosinophils # (auto) 0.01 K/uL (0.00-0.50); Eosinophils % (auto) 0.1 %; Hematocrit (blood only) 52.3 % (42.0-52.0); Hemoglobin 18.2 g/dl (14.0-18.0); Immature Granulocytes # (auto) 0.07 K/uL (0.01-0.20); Immature Granulocytes % (auto) 0.4 %; Lymphocytes # (auto) 0.99 K/uL (1.20-3.40); Mean Corpuscular Hemoglobin 31.4 pg (25.0-34.0); Mean Corpuscular Hgb Conc 34.8 g/dL (32.0-36.0); Mean Corpuscular Volume 90.3 fL (80.0-100.0); Mean Platelet Volume 9.8 fL (9.4-12.4); Monocytes # (auto) 2.26 K/uL (0.11-0.59); Monocytes % (auto) 13.8 %; Neutrophils # (auto) 13.04 K/uL (1.40-6.50); Neutrophils % (auto) 79.6 %; Platelet Count 170 K/uL (130-400); RDW Coefficient of Variation 12.8 % (11.5-14.5); RDW Standard Deviation 41.9 fL (36.4-46.3); Red Blood Count 5.79 M/uL (4.70-6.10); White Blood Count 16.39 K/ul (4.8-10.8)
[2023-12-06 04:43] LABS: Albumin Globulin Ratio 1.4 (0.9-2); Albumin Level 4.1 gm/dl (3.4-5.0); BUN Creatinine Ratio 15.2 (10-20); Bilirubin,Total 1.4 mg/dl (0.2-1.0); Calcium 9.2 mg/dl (8.6-10.3); Creatinine Clr Calc Pharmacy 94.6 ml/min; Est GFR (Non-African American) 82.8 ml/min; Globulin 2.9 gm/dl (2.5-4.0)
[2023-12-06] MEDS: METOPROLOL TARTRATE 1 MG/ML VIAL IV SCH (05:17)
[2023-12-06] MEDS: MoRPHine SULFATE 4 MG/ML 1 ML CARP\\VIAL IV PRN (06:16)
[2023-12-06] MEDS: ACETAMINOPHEN 1,000 MG/100 ML VIAL IV PRN (08:31)
--- NOTE | 2023-12-06 08:49 | Hospitalist Progress Note ---
Date of Service December 06, 2023 Assessment & Plan (1) Acute cholecystitis: Plan: Acute cholecystitis CTA/P: Acute cholecystitis with cholelithiasis. Mild intrahepatic and extrahepatic biliary ductal dilation without choledocholithiasis. No transaminitis or hyperbilirubinemia is present. - MRCP reviewed - compatible with acute cholecystitis, no choledocholithiasis Surgery consulted, reviewed their recommendations, earliest surgery planned would be Monday because of xarelto (though 48h from last dose would be tomorrow AM) --consulted cardiology for preoperative evaluation, discussed with Dr. Wells Continue Zosyn Continue morphine, Zofran LR 120 cc/h, clear liquid diet per surgery team - AM CBC CMP (2) Coronary artery calcification: Plan: CAD Has seen cardiology in the past, suspected to have underlying occult CAD, has had a history of troponin leak with RVR in the past however no anginal symptoms. No history of heart failure. Echo 11/22/2022 with EF 65 to 70%, normal wall motion and systolic function, no significant valvular disease Patient reports he is able to go up 2 flights of stairs with some dyspnea but no chest pain or angina, and shortness of breath he feels is proportional to the exercise and recovers quickly with rest. Denies chest pain at rest No chest pain at time of admitting assessment, reports prior to coming in and receiving morphine he did have mild low substernal pressure which has since completely resolved Follows with [facility] cardiology. Consulted for preoperative risk assessment. No signs of ACS on admission Minimally elevated troponin 26-->25, EKG without acute ischemic changes. 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 continue metoprolol (4) HTN (hypertension): Plan: home meds triamterenehydrochlorothiazide, metoprolol po uncontrolled on scheduled IV metoprolol 2.5 IV q6h - increased to 5 mg and gave extra one time dose of 2.5 mg IV midday - continue holding diuretic until oral intake normalized / postop - resume oral metoprolol - may need second agent - IV labetalol or IV hydralazine PRN uncontrolled hypertension (5) Hyperlipidemia: Plan: continue Atorvastatin (6) Thoracic ascending aortic aneurysm: Plan: Ascending thoracic aorta aneurysm CTchest 11/2022 with 4.6 cm aneurysmal dilatation, stable, 1 year surveillance imaging - Avoid fluoroquinolones (7) History of DVT (deep vein thrombosis): Plan: Patient reports history of right lower extremity DVT postoperatively this was a few years ago, has been on Xarelto both for this and A-fib Xarelto held Plan DVT PPx: anticoagulated currently Start chemoppx tomorrow AM while DOAC held Admission and Anticipated Discharge Date Admission Date: December 05, 2023 Subjective RUQ pain and tenderness persists. Denied nausea when seen in AM No dyspnea or chest pain Had trial of clears for lunch and vomited all of it per RN Physical Exam 2 Physical Exam: PHYSICAL EXAMINATION Last 24h vital signs reviewed, see documentation in flowsheet General: comfortable appearing, no distress HEENT: Normocephalic, atraumatic, pupils round and equal, sclerae anicteric, no conjunctival injection, moist mucus membranes Lungs: Normal respiratory effort. Clear to auscultation bilaterally. No RRW Heart: Regular rate and rhythm, no murmurs. No JVD Abdomen: Soft, nondistended. TTP in right upper quadrant without rigidity rebound or guarding. Bowel sounds present. Extremities: Warm, dry, well-perfused. No extremity edema. Neuro: Alert and oriented x 4, face symmetric, moves 4 extremities well Psych: Normal affect and behavior Results & Data Results & Data Vital Signs (Past 12 Hours) Vital Signs Pulse Pulse Resp BP BP Pulse Ox Pulse Ox 12/06/23 07:10 98 H 24 95 12/06/23 07:00 92 H 26 H 94 12/06/23 07:00 182/100 H 12/06/23 06:50 91 H 26 H 93 12/06/23 06:40 88 28 H 93 12/06/23 06:30 88 27 H 93 12/06/23 06:23 73 173/95 H 12/06/23 06:22 88 16 173/95 H 99 12/06/23 06:20 89 28 H 92 12/06/23 06:10 95 H 19 12/06/23 06:00 83 26 H 96 12/06/23 06:00 173/95 H 12/06/23 05:50 79 19 95 12/06/23 05:40 80 95 12/06/23 05:30 81 25 H 94 12/06/23 05:20 80 15 95 12/06/23 05:17 84 191/114 H 12/06/23 05:10 86 26 H 94 12/06/23 04:00 86 18 192/97 H 94 12/06/23 03:01 80 18 192/113 H 94 12/05/23 23:10 75 12/05/23 22:33 98 12/05/23 22:33 75 18 190/99 H 94 O2 Del Method O2 Del Method 12/06/23 07:10 12/06/23 07:00 12/06/23 07:00 12/06/23 06:50 12/06/23 06:40 12/06/23 06:30 12/06/23 06:23 12/06/23 06:22 Room Air 12/06/23 06:20 12/06/23 06:10 12/06/23 06:00 12/06/23 06:00 12/06/23 05:50 12/06/23 05:40 12/06/23 05:30 12/06/23 05:20 12/06/23 05:17 12/06/23 05:10 12/06/23 04:00 Room Air 12/06/23 03:01 Room Air 12/05/23 23:10 12/05/23 22:33 Room Air 12/05/23 22:33 Room Air Laboratory Results 12/06/23 03:54 12/06/23 03:54 Diagnostic Findings Abdomen/Pelvis CT 12/05/23 15:[address] WITH IV CONTRAST CT DOSE: 1478.21 mGy.cm HISTORY: Acute lower abdominal pain lower abd pain TECHNIQUE: Multiaxial CT images of the abdomen and pelvis were performed following the IV administration of 85 cc of Optiray, A dose lowering technique was utilized adhering to the principles of ALARA. COMPARISON STUDY: Chest CT 11/22/2022 FINDINGS: Cardiomegaly with extensive coronary artery calcifications. Fusiform dilation of the ascending thoracic aorta, 4.3. The lung bases. No free air. Unremarkable spleen, pancreas and adrenal glands. Distended gallbladder with wall thickening and pericholecystic edema. Cholelithiasis. Moderate intrahepatic and extrahepatic biliary ductal dilation. Common bile duct measures 10 mm. No choledocholithiasis identified. Unremarkable liver. Patent portal vein. Renal cysts measure up to 8.3 cm on the left. No hydronephrosis. Prostatomegaly. Urinary bladder wall thickening with partial distention. Atherosclerosis of the aorta. No lymphadenopathy. Tiny hiatal hernia. Moderate wall thickening of the duodenum. Colonic diverticulosis. Normal appendix. Tiny fat filled umbilical hernia. Degenerative changes of the spine, pelvis and right hip. Lumbar levoscoliosis. Left hip arthroplasty. IMPRESSION: 1. Cholelithiasis with acute cholecystitis. 2. Mild intrahepatic and extrahepatic biliary ductal dilation without choledocholithiasis identified by CT. Correlation could be made with serum bilirubin. 3. Colonic diverticulosis. 4. Mild aneurysmal dilation of the ascending thoracic aorta is partially imaged. ACT 112: Negative or not required by law. The above report was generated using voice recognition software. It may contain grammatical, syntax or spelling errors. Electronically signed by: Chris Crocker M.D. 12/05/2023 5:47 PM Cholangiopancreatography MRI 12/05/23 21:05 Exam(s): MRI MRCP EXAM: MR Abdomen Without Intravenous Contrast, MRCP Protocol CLINICAL HISTORY: Reason for exam: acute oanh, ?cholelithiasis. TECHNIQUE: Multiplanar magnetic resonance images of the abdomen without intravenous contrast using MRCP protocol. COMPARISON: CT abdomen and pelvis from December 05, 2023 FINDINGS: Bile ducts: The common bile duct is upper limits of normal measuring 10 mm in diameter. No choledocholithiasis is identified. Gallbladder: The gallbladder is mildly dilated measuring 5.5 cm short axis diameter. There are several calcified gallstones within it measuring up to 2.3 cm in diameter. There is slight wall thickening and a thin rim of pericholecystic fluid suggesting acute cholecystitis. Liver: There is fatty infiltration of the liver. No focal liver mass lesion is seen. Pancreas: Unremarkable. No ductal dilation. Spleen: Unremarkable. No splenomegaly. Adrenals: Unremarkable. No mass. Kidneys and ureters: There are simple cysts in both kidneys measuring up to 7.7 cm in the left. No follow-up is required. No hydronephrosis. Stomach and bowel: Unremarkable. No obstruction. IMPRESSION: 1. The gallbladder is mildly dilated measuring 5.5 cm short axis diameter. There are several calcified gallstones within it measuring up to 2.3 cm in diameter. There is slight wall thickening and a thin rim of pericholecystic fluid suggesting acute cholecystitis. 2. The common bile duct is upper limits of normal measuring 10 mm in diameter. No choledocholithiasis is identified. 3. There are simple cysts in both kidneys measuring up to 7.7 cm in the left. No follow-up is required. Electronically signed by: Grayson Parker MD 12/05/23 22:30 PM PG Care Time/CCT Total # of Minutes Spent Total Time Spent with Patient: Total time spent is greater than 50% in coordination of care (as documented) at patient's floor/unit and/or counseling patient: Coding Level of Care Code 57184 SUB INP/OBS CARE 3/50MIN Diagnoses Acute cholecystitis K81.0 Coronary artery calcification I25.10; I25.84 Atrial fibrillation with RVR I48.91 HTN (hypertension) I10 Hyperlipidemia E78.5 Thoracic ascending aortic aneurysm I71.21 History of DVT (deep vein thrombosis) Z86.718
--- NOTE | 2023-12-06 11:25 | Cardiology Consultation ---
Date of Consultation December 06, 2023 Assessment & Plan (1) Chest pain: (2) Coronary artery calcification: (3) Demand ischemia: (4) Uncontrolled hypertension: (5) Thoracic ascending aortic aneurysm: (6) Acute cholecystitis: Plan 73-year-old man with presumed coronary artery disease (coronary calcification) and moderate sized thoracic aortic aneurysm (4.6 cm last year) as well as prior history of paroxysmal atrial fibrillation (currently sinus with PACs) admitted with acute cholecystitis for which operative intervention is planned. His transient chest pain yesterday could represent angina secondary to uncontrolled hypertension, no evidence of acute cardiac event based on minimal/flat troponin curve and isoelectric ST segments on subsequent ECG. Esophageal spasm is another consideration, but would presume angina and treat accordingly. In the absence of evidence for acute coronary closure, most appropriate to proceed with operative intervention for his acute cholecystitis, while optimizing perioperative hemodynamics. His main cardiac stress currently is cholecystitis causing pain and hypertension, best managed through cholecystectomy. Would recommend more aggressive BP control with IV labetalol or hydralazine to reduce the risk of recurrent angina. Also, agree with regular doses of IV metoprolol to avoid beta-giovani withdrawal/rebound, reduce atrial ectopy, and reduce the risk of recurrent atrial fibrillation. Could increase metoprolol to tartrate to 5 mg IV every 6 hours. In regards to anticoagulation, the last dose of rivaroxaban was yesterday (12/05/2023), ideally surgery should be deferred until later today or tomorrow to reduce bleeding risk. His renal function is normal, so no need to wait longer than 24 hours after the last rivaroxaban dose was due (48 hours after last dose given). Obviously, need to weigh increased bleeding risk against risk of GI complications secondary to delayed intervention. Although there is no need to resume rivaroxaban immediately after surgery given that he is in sinus rhythm, the medication was initially started for postoperative DVT after orthopedic surgery. Therefore, would recommend restarting rivaroxaban the day after surgery. Will continue to follow along from a cardiac standpoint. History of Present Illness Reason for Consultation: chest pain, trop, preop assessment Requesting Physician: Mari Shaw MD Attending Physician: Mari Shaw MD History of Present Illness 73-year-old man with paroxysmal atrial fibrillation (rivaroxaban/metoprolol), presumed CAD (coronary artery calcification, no prior cath), and thoracic aortic aneurysm (4.6 cm) who was admitted yesterday (12/05/2023) with acute cholecystitis for which operative intervention is planned. At recent baseline, he walks regularly with no chest discomfort or dyspnea. No recent tachypalpitations to suggest recurrent atrial fibrillation. He did note an episode of transient chest discomfort yesterday, midsternal moderate intensity, lasting about 30 minutes, no change with position or respiration, no associated symptoms (no dyspnea, palpitations, diaphoresis, or lightheadedness). Of note, he has been significantly hypertensive since admission (initial BP 208/98 mmHg). He has had no recurrence of chest pain since yesterday. His abdominal discomfort was controlled overnight, but he has increased abdominal pain this morning. Troponin values of 26 and 25. ECG yesterday showed sinus rhythm with PACs, otherwise unremarkable (ST segments are isoelectric). Aside from some abdominal discomfort, no somatic complaints at the time of my evaluation this morning. Allergies Allergy/AdvReac Type Severity Reaction Status Date / Time bee venom protein (honey bee) Allergy Intermediate Hives Verified 12/05/23 19:36 Home Medications Medication Instructions Recorded Confirmed Type acetaminophen 650 mg 1,300 mg PO Q12H PRN Pain 11/22/22 12/05/23 History tablet,extended release (Tylenol 8 Hour) triamcinolone acetonide 0.1 % 1 applic topical BID PRN Skin 11/22/22 12/05/23 History topical cream Irritation metoprolol succinate 50 mg 50 mg PO DAILY #90 tabs 01/02/23 12/05/23 Rx tablet,extended release 24 hr (Toprol XL) sildenafil (pulm.hypertension) 20 50 mg (2.5 x 20 mg) PO DAILY PRN 03/01/23 12/05/23 Rx mg tablet sexual activity #36 tabs epinephrine 0.3 mg/0.3 mL 0.3 mg (0.3 mL) IM DIRECTED PRN 03/31/23 12/05/23 Rx injection, auto-injector anaphylaxis #2 ea triamterene 37.5 1 tab PO QAM #90 tabs 07/25/23 12/05/23 Rx mg-hydrochlorothiazide 25 mg tablet rivaroxaban 20 mg tablet (Xarelto) 20 mg PO QAM #90 tabs 09/27/23 12/05/23 Rx atorvastatin 40 mg tablet 40 mg PO DAILY #90 tabs 11/23/23 12/05/23 Rx Patient History Medical History Chronic anticoagulation Atrial fibrillation with RVR DVT (deep venous thrombosis) Degenerative arthritis of knee, bilateral Encounter for pre-operative examination History of COVID-19 Dx 09/2020 > symptoms at time of fever, body aches, cough, dyspnea > resolved Osteoarthritis Acid reflux History of skin cancer s/p excision TIA (transient ischemic attack) Per 06/2015 [facility] discharge summary, possible TIA versus vertigo. Unremarkable MRI of brain, carotids, echo. No subsequent issues. HLD (hyperlipidemia) HTN (hypertension) Depression Fatigue Surgical History Status post left hip replacement History of tonsillectomy History of hemorrhoidectomy History of arthroscopy of shoulder Rt x 2 History of colonoscopy History of left knee surgery H/O rotator cuff surgery Family History Father Myocardial infarction Other No family history of adverse response to anesthesia Denies family history of Ovarian cancer Prostate cancer Breast cancer Colorectal cancer Social History Smoking Status: Never smoker Second Hand Exposure: No; Do You Dip or Chew Tobacco: No; Hx Alcohol Use: No Hx Substance Use: No Preferred Language: Argentine Communication Ability: Effective Visual Impairment: No Limitations Hearing Ability: Normal Testing And Regulating Technician Required: No Beliefs That Will Affect Care: None marital status: Current Living Situation: Spouse current occupational status: retired How many Children do You have: 2 Feels Safe at Home: Yes Childhood Exposure to Second-Hand Smoke: No Diet: regular caffeine: Yes Dental Care, Regularly: Yes Physical Activity Frequency: Daily Seatbelt Use: always Sunscreen Use: Yes (sometimes) Assistive Devices: Walker Physical Exam Physical Exam: Appears mildly uncomfortable due to abdominal discomfort. Afebrile. BP 190/113 mmHg. Pulse 86 bpm and regular with frequent ectopy. Respirations 23 but unlabored Skin: no ecchymoses or generalized lesions. HEENT: unremarkable. Neck: JVP at the clavicle at 90 degrees, no carotid bruits. Lungs: clear. Cardiac: regular rhythm with sporadic ectopy, normal S1-2, no murmur. Abdomen: Upper abdominal tenderness. Extremities: no edema, pulses intact. Neurologic: normal affect and conversation, nonfocal. Results & Data Laboratory Results Troponin is as noted in HPI. WBC 16.39, hemoglobin 18.2. Normal electrolytes, BUN 14, creatinine 0.92. Diagnostic Findings Chest CT November 2022 showed thoracic aorta 4.6 cm. Echocardiogram November 2022 was technically difficult but showed normal LV systolic function with borderline aortic root dilatation and no significant valvular disease. PG Care Time/CCT Total # of Minutes Spent Total Time Spent with Patient: Total time spent is greater than 50% in coordination of care (as documented) at patient's floor/unit and/or counseling patient: Coding Level of Care Code 81499 INT INP/OBS CARE 3/75MIN Diagnoses Chest pain R07.9 Coronary artery calcification I25.10; I25.84 Demand ischemia I24.89 Uncontrolled hypertension I10 Thoracic ascending aortic aneurysm I71.21 Acute cholecystitis K81.0
[2023-12-06] MEDS ORDERED: LABETALOL HCL IV 5 MG/ML 20ML IV PRN (12:39)
[2023-12-06] MEDS: METOPROLOL TARTRATE 1 MG/ML VIAL IV STA (12:57)
[2023-12-06] MEDS: hydrALAZINE HCL 20 MG/ML VIAL IV PRN (13:32)
--- NOTE | 2023-12-06 13:40 | XCELERA ---
[id number]
--- NOTE | 2023-12-06 14:32 | Surgery Progress Note ---
Date of Service December 06, 2023 Assessment & Plan (1) Acute cholecystitis: (2) History of DVT (deep vein thrombosis): (3) Atrial fibrillation with RVR: (4) Elevated troponin: Plan 73-year-old gentleman presents to the emergency department with acute cholecystitis with ductal dilatation but normal LFTs. He does have a cardiac history and is on Xarelto. He did take his Xarelto this morning. He is being admitted to the hospitalist service. MRCP has been ordered to further assess the bile ducts. Will place him on Zosyn. We will hold the Xarelto for now. cardiac consultation to follow in the morning. We will hold off on operation for now given the cardiac status and Xarelto. Will continue to monitor. N.p.o. and IV fluids. 12/06/2023ardiology consult cleared for surgery. Only been off Xarelto for 1 day. Would not operate until at least Monday due to bleeding risk. Will continue IV fluids and IV antibiotics. Pain control. Clear liquid diet for today. We will continue to follow. Admission and Anticipated Discharge Date Admission Date: December 05, 2023 Subjective Still complaining of right upper quadrant pain this morning. No nausea or vomiting. He states he is very hungry. Denies fevers or chills. Physical Exam Physical Exam: NAD, A&O x 3 AF, normal rate, consistently elevated blood pressure 190/100 abdomen: Soft, obese, TTP in RUQ and epigastrium Results & Data Vital Signs (Past 12 Hours) Vital Signs Pulse Pulse Resp BP BP Pulse Ox O2 Del Method 12/06/23 13:31 90 189/104 H 12/06/23 13:30 87 25 H 12/06/23 13:30 189/104 H 12/06/23 13:20 85 24 12/06/23 13:15 178/108 H 12/06/23 13:15 82 25 H 12/06/23 13:10 82 25 H 12/06/23 13:00 85 24 12/06/23 13:00 176/105 H 12/06/23 12:57 186/117 H 12/06/23 12:50 83 28 H 12/06/23 12:45 88 24 12/06/23 12:45 186/117 H 12/06/23 12:40 94 H 22 12/06/23 12:30 93 H 22 12/06/23 12:30 178/112 H 12/06/23 12:20 84 24 12/06/23 12:15 83 23 12/06/23 12:15 183/109 H 12/06/23 12:10 84 22 12/06/23 12:09 176/106 H 12/06/23 12:00 176/106 H 12/06/23 12:00 84 24 12/06/23 11:50 84 23 12/06/23 11:45 91 H 24 12/06/23 11:45 173/108 H 12/06/23 11:41 176/110 H 12/06/23 11:41 94 H 17 12/06/23 11:40 83 21 12/06/23 11:40 94 H 176/110 H 12/06/23 11:30 100 H 24 12/06/23 11:20 89 23 12/06/23 11:10 91 H 19 12/06/23 11:00 85 24 12/06/23 11:00 184/112 H 12/06/23 10:50 85 24 12/06/23 10:41 190/113 H 12/06/23 10:40 191/113 H 12/06/23 10:40 95 H 23 12/06/23 10:30 84 25 H 12/06/23 10:20 87 22 12/06/23 10:10 97 H 22 12/06/23 10:00 86 23 12/06/23 09:50 85 20 12/06/23 09:40 86 21 12/06/23 09:30 86 22 12/06/23 09:20 86 25 H 12/06/23 09:10 86 24 12/06/23 09:04 91 H 12/06/23 09:00 89 24 12/06/23 08:50 87 25 H 12/06/23 08:40 86 28 H 12/06/23 08:30 86 20 12/06/23 08:20 85 22 12/06/23 08:10 92 H 22 12/06/23 08:00 87 25 H 91 12/06/23 08:00 187/108 H 12/06/23 07:50 91 H 92 12/06/23 07:40 87 27 H 92 12/06/23 07:30 87 26 H 93 12/06/23 07:20 86 29 H 92 12/06/23 07:10 98 H 24 95 12/06/23 07:00 92 H 26 H 94 12/06/23 07:00 182/100 H 12/06/23 06:50 91 H 26 H 93 12/06/23 06:40 88 28 H 93 12/06/23 06:30 88 27 H 93 12/06/23 06:23 73 173/95 H 12/06/23 06:22 88 16 173/95 H 99 Room Air 12/06/23 06:20 89 28 H 92 12/06/23 06:10 95 H 19 12/06/23 06:00 83 26 H 96 12/06/23 06:00 173/95 H 12/06/23 05:50 79 19 95 12/06/23 05:40 80 95 12/06/23 05:30 81 25 H 94 12/06/23 05:20 80 15 95 12/06/23 05:17 84 191/114 H 12/06/23 05:10 86 26 H 94 12/06/23 04:00 86 18 192/97 H 94 Room Air 12/06/23 03:01 80 18 192/113 H 94 Room Air
[2023-12-06] MEDS: ONDANSETRON INJ 2 MG/ML 2 ML VIAL IV PRN (14:55)
--- NOTE | 2023-12-06 16:02 | Electrocardiogram Report ---
Test Reason : Blood Pressure : / mmHG Vent. Rate : 072 BPM Atrial Rate : 072 BPM P-R Int : 180 ms QRS Dur : 084 ms QT Int : 400 ms P-R-T Axes : 054 035 039 degrees QTc Int : 438 ms Normal sinus rhythm Normal ECG When compared with ECG of 05-DEC-2023 16:12, Premature atrial complexes are no longer Present Confirmed by Al Wells ([id number]) on 12/06/2023 4:02:25 PM Referred By: REFERRED SELF Confirmed By:Al Wells
[2023-12-06] MEDS: dilTIAZem HCl 5 MG/ML 5 ML VIAL IV ONE (17:37)
[2023-12-06] MEDS: dilTIAZem HCl 5 MG/ML 5 ML VIAL IV STA ×2 (17:45→18:55)
[2023-12-06] MEDS ORDERED: STAT IV Infusion **Titration per Protocol STA (17:51)
--- NOTE | 2023-12-06 17:59 | Communication Note ---
Date of Service: December 06, 2023 Called for kristie plata, assessed at bedside Developed abrupt onset tachycardia, narrow complex rate around 150, reviewed monitor in room and 12-lead, has atrial flutter Initial SBP around 180 and dyspneic no chest pain On exam appears mildly dyspneic, lungs clear, heart tachy reg, no murmur, hard to see neck veins, alert TTE today with preserved EF A/P: Hx atrial fibrillation in past, now in atrial flutter with rapid rate -diltiazem 10 mg IV x 2 sequential doses given with good response, BP improved dyspnea improved rate down to 120s -ordered diltiazem drip -continue metoprolol 5 mg IV q6h (not converting to po right now since nauseated and had emesis after trial of po) -decrease IV LR to 80 -start heparin drip -labs: coags, CBC, BMP, mag, serial troponin -discussed with meal room hand
[2023-12-06] MEDS ORDERED: Heparin IV Adult Wt-Based Standard w/ INITIAL Bolus Protocol IV SCH (18:00)
[2023-12-06 18:23] LABS: Basophils # (auto) 0.06 K/uL (0.00-0.20); Basophils % (auto) 0.3 %; Eosinophils # (auto) 0.01 K/uL (0.00-0.50); Hematocrit (blood only) 53.8 % (42.0-52.0); Hemoglobin 18.5 g/dl (14.0-18.0); Immature Granulocytes # (auto) 0.15 K/uL (0.01-0.20); Immature Granulocytes % (auto) 0.7 %; Lymphocytes # (auto) 1.14 K/uL (1.20-3.40); Lymphocytes % (auto) 5.6 %; Mean Corpuscular Hemoglobin 30.9 pg (25.0-34.0); Mean Corpuscular Hgb Conc 34.4 g/dL (32.0-36.0); Mean Corpuscular Volume 89.8 fL (80.0-100.0); Mean Platelet Volume 9.9 fL (9.4-12.4); Monocytes # (auto) 2.84 K/uL (0.11-0.59); Monocytes % (auto) 14.1 %; Neutrophils % (auto) 79.3 %; Platelet Count 163 K/uL (130-400); RDW Coefficient of Variation 12.9 % (11.5-14.5); RDW Standard Deviation 42.2 fL (36.4-46.3); Red Blood Count 5.99 M/uL (4.70-6.10)
[2023-12-06] MEDS: dilTIAZem HCL 125 MG in DEXTROSE 5% 100 ML IV SCH (18:27)
[2023-12-06] MEDS: PROCHLORPERAZINE 5 MG in SYRINGE 4 ML IV PRN (18:28)
[2023-12-06 18:40] LABS: BUN Creatinine Ratio 14.1 (10-20); Creatinine Clr Calc Pharmacy 102.4 ml/min; Est GFR (African American) 100.9 ml/min; Est GFR (Non-African American) 87.1 ml/min; Magnesium 1.6 mg/dl (1.7-2.4); Potassium 3.7 mmol/L (3.5-5.1)
[2023-12-06 18:50] LABS: INR 1.2 (0.9-1.1); Partial Thromboplastin Ratio 1.3; Partial Thromboplastin Time 38 Seconds (21-31); Prothrombin Time 13.1 Seconds (9.0-12.0)
[2023-12-06 18:52] LABS: Troponin I High Sensitivity 57.9 pg/ml (0-20)
[2023-12-06] MEDS: HEPARIN SOD (PORCINE) 1000 UNIT/ML IV ONE (19:08)
[2023-12-06] MEDS: HEPARIN SODIUM/DEXTROSE 25,000 UNITS/500 ML BAG IV SCH (19:08)
[2023-12-06] MEDS: MAGNESIUM SULFATE / D5W 1 GM/100 ML BAG IV SCH (20:22)
[2023-12-07 04:07] LABS: Basophils # (auto) 0.05 K/uL (0.00-0.20); Basophils % (auto) 0.3 %; Eosinophils # (auto) 0.01 K/uL (0.00-0.50); Eosinophils % (auto) 0.1 %; Hematocrit (blood only) 51.1 % (42.0-52.0); Hemoglobin 17.5 g/dl (14.0-18.0); Immature Granulocytes # (auto) 0.13 K/uL (0.01-0.20); Immature Granulocytes % (auto) 0.7 %; Lymphocytes # (auto) 1.29 K/uL (1.20-3.40); Lymphocytes % (auto) 6.8 %; Mean Corpuscular Hgb Conc 34.2 g/dL (32.0-36.0); Mean Corpuscular Volume 90.6 fL (80.0-100.0); Mean Platelet Volume 10.1 fL (9.4-12.4); Monocytes # (auto) 2.09 K/uL (0.11-0.59); Neutrophils # (auto) 15.38 K/uL (1.40-6.50); Neutrophils % (auto) 81.1 %; Platelet Count 151 K/uL (130-400); Red Blood Count 5.64 M/uL (4.70-6.10); White Blood Count 18.95 K/ul (4.8-10.8)
[2023-12-07 04:15] LABS: ANTI-Xa, UFH(UnfractionatedHep 0.47 IU/ml (0.3-0.7)
[2023-12-07 05:06] LABS: Albumin Globulin Ratio 1.3 (0.9-2); Albumin Level 3.6 gm/dl (3.4-5.0); BUN Creatinine Ratio 14.3 (10-20); Bilirubin,Total 2.1 mg/dl (0.2-1.0); Calcium 8.8 mg/dl (8.6-10.3); Creatinine Clr Calc Pharmacy 96.9 ml/min; Est GFR (African American) 97.2 ml/min; Est GFR (Non-African American) 83.9 ml/min; Globulin 2.8 gm/dl (2.5-4.0); Potassium 3.5 mmol/L (3.5-5.1); Total Protein 6.4 gm/dl (6.0-8.3)
[2023-12-07 05:11] LABS: Troponin I High Sensitivity 728.8 pg/ml (0-20)
--- NOTE | 2023-12-07 06:11 | Communication Note ---
Repeat trop 57-> 728. Repeat EKG Afib with rate of 112; ST changes in prior EKG no longer present. Evaluated at bedside he denies chest pain, dyspnea. No acute distress. Heart with irregular rate, lungs clear to auscultation. Blood pressure 141/85. He is on maximum dose of diltiazem drip, rates 100s-110. Will give 5mg Lopressor IV. Date of Service: December 07, 2023
[2023-12-07] MEDS: METOPROLOL TARTRATE 1 MG/ML VIAL IV STA (06:20)
[2023-12-07 10:36] LABS: Bilirubin Direct 0.6 mg/dl (0-0.2)
[2023-12-07 10:42] LABS: ANTI-Xa, UFH(UnfractionatedHep 0.38 IU/ml (0.3-0.7)
--- NOTE | 2023-12-07 11:29 | Surgery Progress Note ---
Date of Service December 07, 2023 Assessment & Plan (1) Acute cholecystitis: (2) History of DVT (deep vein thrombosis): (3) Atrial fibrillation with RVR: Plan: went into aflutter with RVR last evening now on cardizem drip (4) Elevated troponin: Plan MRCP without choledocholithiasis but upper limits of normal size CBD afebrile T. bili 2.1 today and d. bili 0.6, lfts and alk phos wnl wbc 18k (20K last evening) Moderate amount of RUQ /upper abdominal tenderness on examination Troponin increased to 700 last evening, repeat 400 Plan: Given cardiac event overnight with aflutter and RVR and now with increasing t. bili and d. bili discussed with patient and possibility of needing GI intervention with EUS possible ERCP (pending their evaluation). Given patients cardiac history , significant rise in Troponin with aflutter with RVR, and likely severe cholecystitis based on examination and high leukocytosis, may need to consider perc cholecystostomy tube in which he would likely require transfer to tertiary center. Will place GI consultation Will discuss with attending surgeon Dr. Lu Continue NPO Continue IV antibiotics continue current medical management Please see addendum for further recommendations/plan by Dr. Lu. Admission and Anticipated Discharge Date Admission Date: December 05, 2023 Supervising Physician Co-Signing Physician Notes I have seen and examined the patient personally and agree with the above assessment plan. Today, he continues to have upper quadrant abdominal pain. He went into a run of A flutter, and his troponin went to 700. Also, LFTs bumped, total bilirubin to 2.1. With him and his concerning these findings. Given the cardiac anomalies as well as my experience with operative intervention on gallbladders in patient's fitting his clinical appearance, I respectfully disagree with the maintenance supervisor mechanical and do not believe that he is fit for a surgical procedure at this time. I would recommend percutaneous cholecystostomy tube at this time to decompress his gallbladder. He will also require ERCP given his elevated LFTs. I spoke with radiology and gastroenterology, and neither of the services are available at this hospital until at least next week. As such, we have discussed with the hospitalist about transfer to tertiary care for these interventions which we are unable to provide at this institution. Subjective feeling better now that he got pain medication, pain about 3/10 now, did not tolerate clear liquids yesterday without pain per at bedside no nausea or vomiting no shortness of breath or chest pain no fevers or chills Physical Exam Constitutional: + obese, cooperative and comfortable; no acute distress and not ill appearing Respiratory: normal respiratory effort; no respiratory distress, no labored breathing and no retractions Cardiovascular: Rate/Rhythm: + tachycardic Heart Sounds: normal S1 and normal S2 Gastrointestinal (Abdomen): Inspection/Auscultation: abdomen normal to inspection and + abdomen distended Percussion/Palpation: + abdomen tender (upper abdomen but more in RUQ on mild palpation) and abdomen soft; no guarding, abdomen not rigid and abdomen not firm Skin: no rashes, warm and dry no jaundice Psychiatric: Orientation: alert and oriented x 3 Results & Data Vital Signs (Past 12 Hours) Vital Signs Temp Pulse Pulse Resp BP BP BP 12/07/23 07:21 36.8 C 94 H 16 132/86 12/07/23 06:45 81 118/58 L 12/07/23 06:20 110 H 124/62 12/07/23 03:35 37.7 C H 107 H 18 119/77 Pulse Ox O2 Del Method O2 Flow Rate 12/07/23 07:21 94 Room Air 2 12/07/23 06:45 12/07/23 06:20 12/07/23 03:35 94 Nasal Cannula Laboratory Results 12/07/23 12/07/23 12/06/23 Range/Units 09:57 03:17 18:05 WBC 18.95 H 20.20 H (4.8-10.8) K/ul RBC 5.64 5.99 (4.70-6.10) M/uL Hgb 17.5 18.5 H (14.0-18.0) g/dl Hct 51.1 53.8 H (42.0-52.0) % MCV 90.6 89.8 (80.0-100.0) fL MCH 31.0 30.9 (25.0-34.0) pg MCHC 34.2 34.4 (32.0-36.0) g/dL RDW Std Deviation 43.0 42.2 (36.4-46.3) fL RDW Coeff of Abe 13.0 12.9 (11.5-14.5) % Plt Count 151 163 (130-400) K/uL MPV 10.1 9.9 (9.4-12.4) fL Immature Gran % (Auto) 0.7 0.7 % Neut % (Auto) 81.1 79.3 % Lymph % (Auto) 6.8 5.6 % [place] % (Auto) 11.0 14.1 % Eos % (Auto) 0.1 0.0 % Baso % (Auto) 0.3 0.3 % Neut # (Auto) 15.38 H 16.00 H (1.40-6.50) K/uL Lymph # (Auto) 1.29 1.14 L (1.20-3.40) K/uL [place] # (Auto) 2.09 H 2.84 H (0.11-0.59) K/uL Eos # (Auto) 0.01 0.01 (0.00-0.50) K/uL Baso # (Auto) 0.05 0.06 (0.00-0.20) K/uL Immature Gran # (Auto) 0.13 0.15 (0.01-0.20) K/uL PT 13.1 H (9.0-12.0) Seconds INR 1.2 H (0.9-1.1) APTT 38 H (21-31) Seconds PTT Ratio 1.3 Heparin Anti-Xa, Unfract 0.38 0.47 (0.3-0.7) IU/ml Sodium 134 L 135 L (136-145) mmol/L Potassium 3.5 3.7 (3.5-5.1) mmol/L Chloride 102 102 (98-107) mmol/L Carbon Dioxide 23 24 (21-32) mmol/L Anion Gap 9 9 (3-11) BUN 13 12 (6-23) mg/dl Creatinine 0.91 0.85 (0.6-1.4) mg/dl Est Cr Clr Drug Dosing 96.9 102.4 ml/min Est GFR ( Amer) 97.2 100.9 ml/min Est GFR (Non-Af Amer) 83.9 87.1 ml/min BUN/Creatinine Ratio 14.3 14.1 (10-20) Glucose 135 H 129 H (70-99(Fasting)) mg/dl Calcium 8.8 9.0 (8.6-10.3) mg/dl Magnesium 1.6 L (1.7-2.4) mg/dl Total Bilirubin 2.1 H (0.2-1.0) mg/dl Direct Bilirubin 0.6 H (0-0.2) mg/dl AST 28 (13-39) U/L ALT 30 (7-52) U/L Alkaline Phosphatase 66 (34-104) U/L Troponin I High Sens 431.0 H* D 728.8 H* D 57.9 H* D (0-20) pg/ml Total Protein 6.4 (6.0-8.3) gm/dl Albumin 3.6 (3.4-5.0) gm/dl Globulin 2.8 (2.5-4.0) gm/dl Albumin/Globulin Ratio 1.3 (0.9-2)
--- NOTE | 2023-12-07 12:33 | Gastrointestinal Consultation ---
Date of Consultation December 07, 2023 Assessment & Plan (1) Elevated bilirubin: (2) Acute cholecystitis: (3) Atrial fibrillation with RVR: Plan This i a 73 y/o male with PMhx A-fib w/ RVR, DVT, on Xarelto, CAD, TAA, HTN, HLD, admitted 3/5 w/ abd pain, nausea, vomiting. Found to have acute cholecystitis, cholelithiasis on imaging, with mild EHDD/IHDD. Labs notable for leukocytosis. Surgery was consulted and cholecystectomy being discussed. Initially LFTs, bilirubin were normal but total bili risen to 2.1 today; dbili 0.6. Transaminases and ALP WNL. MRCP obtained, showing cholelithiasis, cholecystitis, CBD 10 mm, no evidence for choledocholithiasis. This AM was havi ng rising troponin, a-flutter w/ RVR, and cardiology evaluation ordered. Currently abd is somewhat distended, diffusely TTP. VSS. We are consulted for elevated bilirubin in the setting of acute cholecystitis - Reviewed labs, imaging, and discussed with GI attending as well as advanced endoscopist Dr. Wilson - do not feel that pt's dbili of 0.6 is significant, no evidence for CBD stone on imaging, and no ERCP recommended - Pt appears to have cholecystitis - recommend surgery to consider cholecystectomy - ABX as per primary/surgical teams, and mgmt of his cardiac issues w/ primary and cardiology teams - GI will sign off, please call with questions Please call with any acute changes, questions or concerns. Please see addendum below with additional recommendation from my supervising physician. Supervising Physician Co-Signing Physician Notes I personally saw and evaluated the patient on 12/07/2023 with Ofelia Amin PA-C and agree with her findings and plan of care. Abdomen soft and non-tender. We were consulted for elevated bilirubin (total 2.1, direct 0.6) in the setting of acute cholecystitis. AST/ALT/ALP normal. MRCP normal without any significant biliary dilation (CBD upper limit of normal measuring 10 mm) or CBD stone seen. Case reviewed by our advanced endoscopist, Dr. Neely, who does not feel any EUS/ERCP is warranted. Surgery is already following for cholecystitis. GI will sign off but please call back with questions or if LFTs continue to rise. Sana Ling, Gastroenterology and Hepatology History of Present Illness Reason for Consultation: acute cholecystitis, elevated t. bili and d. bili Requesting Physician: Ofelia Altamirano PA-C Attending Physician: Mari Shaw MD History of Present Illness This i a 73 y/o male with PMhx A-fib w/ RVR, DVT, on Xarelto, CAD, TAA, HTN, HLD, admitted 3/5 w/ abd pain, nausea, vomiting. Found to have acute cholecystitis, cholelithiasis on imaging, with mild EHDD/IHDD. Labs notable for leukocytosis. Surgery was consulted and cholecystectomy being discussed. Initially LFTs, bilirubin were normal but total bili risen to 2.1 today; dbili 0.6. Transaminases and ALP WNL. MRCP obtained, showing cholelithiasis, cholecystitis, CBD 10 mm, no evidence for choledocholithiasis. He's on ABX coverage, antiemetics, analgesia. Xarelto was held. He is having rising troponin, a-flutter w/ RVR, and cardiology evaluation ordered. Currently pulse is 92, BP 130's systolic. No Bms but he is passing flatus. Continues with abd pain. No nausea, vomiting. Denies CP, SOB, melena, hematochezia, hematemesis, jaundice, icterus, fever, chills, dark urine prior to arrival here. Allergies Allergy/AdvReac Type Severity Reaction Status Date / Time bee venom protein (honey bee) Allergy Intermediate Hives Verified 12/05/23 19:36 Home Medications Medication Instructions Recorded Confirmed Type acetaminophen 650 mg 1,300 mg PO Q12H PRN Pain 11/22/22 12/05/23 History tablet,extended release (Tylenol 8 Hour) triamcinolone acetonide 0.1 % 1 applic topical BID PRN Skin 11/22/22 12/05/23 History topical cream Irritation metoprolol succinate 50 mg 50 mg PO DAILY #90 tabs 01/02/23 12/05/23 Rx tablet,extended release 24 hr (Toprol XL) sildenafil (pulm.hypertension) 20 50 mg (2.5 x 20 mg) PO DAILY PRN 03/01/23 12/05/23 Rx mg tablet sexual activity #36 tabs epinephrine 0.3 mg/0.3 mL 0.3 mg (0.3 mL) IM DIRECTED PRN 03/31/23 12/05/23 Rx injection, auto-injector anaphylaxis #2 ea triamterene 37.5 1 tab PO QAM #90 tabs 07/25/23 12/05/23 Rx mg-hydrochlorothiazide 25 mg tablet rivaroxaban 20 mg tablet (Xarelto) 20 mg PO QAM #90 tabs 09/27/23 12/05/23 Rx atorvastatin 40 mg tablet 40 mg PO DAILY #90 tabs 11/23/23 12/05/23 Rx Patient History Medical History Chronic anticoagulation Atrial fibrillation with RVR DVT (deep venous thrombosis) Degenerative arthritis of knee, bilateral Encounter for pre-operative examination History of COVID-19 Dx 09/2020 > symptoms at time of fever, body aches, cough, dyspnea > resolved Osteoarthritis Acid reflux History of skin cancer s/p excision TIA (transient ischemic attack) Per 06/2015 [facility] discharge summary, possible TIA versus vertigo. Unremarkable MRI of brain, carotids, echo. No subsequent issues. HLD (hyperlipidemia) HTN (hypertension) Depression Fatigue Surgical History Status post left hip replacement History of tonsillectomy History of hemorrhoidectomy History of arthroscopy of shoulder Rt x 2 History of colonoscopy History of left knee surgery H/O rotator cuff surgery Family History Father Myocardial infarction Other No family history of adverse response to anesthesia Denies family history of Ovarian cancer Prostate cancer Breast cancer Colorectal cancer Social History Smoking Status: Never smoker Second Hand Exposure: No; Do You Dip or Chew Tobacco: No; Hx Alcohol Use: No Hx Substance Use: No Preferred Language: Japanese Communication Ability: Effective Visual Impairment: No Limitations Hearing Ability: Normal 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 Person Required: No Beliefs That Will Affect Care: None marital status: Current Living Situation: Spouse current occupational status: retired How many Children do You have: 2 Feels Safe at Home: Yes Childhood Exposure to Second-Hand Smoke: No Diet: regular caffeine: Yes Dental Care, Regularly: Yes Physical Activity Frequency: Daily Seatbelt Use: always Sunscreen Use: Yes (sometimes) Assistive Devices: Cane and Walker Review of Systems Review of Systems: All systems reviewed & are unremarkable except as noted in HPI & below Physical Exam Constitutional: well developed, well nourished and comfortable; no acute distress Eyes: Sclera anicteric, no conjunctival injection ENMT: moist mucous membranes, no pallor Neck: trachea midline supple Respiratory: normal respiratory effort, lungs clear to auscultation Cardiovascular: irregularly irregular, tachycardic, no LE edema Gastrointestinal (Abdomen): abd + distended, moderately diffusely tender, no rebound, guarding, BS x 4 quadrants. Skin: no rashes, warm and dry Neurologic: alert and oriented x 3, no obvious focal neuro deficit Psychiatric: normal mood and affect Results & Data Vital Signs (Past 12 Hours) Vital Signs Temp Pulse Pulse Resp BP BP BP 12/07/23 11:34 37.1 C 92 H 17 131/76 12/07/23 08:00 12/07/23 07:21 36.8 C 94 H 16 132/86 12/07/23 06:45 81 118/58 L 12/07/23 06:20 110 H 124/62 12/07/23 03:35 37.7 C H 107 H 18 119/77 Pulse Ox O2 Del Method O2 Flow Rate 12/07/23 11:34 95 Nasal Cannula 2.0 12/07/23 08:00 Nasal Cannula 2 12/07/23 07:21 94 Room Air 2 12/07/23 06:45 12/07/23 06:20 12/07/23 03:35 94 Nasal Cannula Laboratory Results 12/07/23 12/07/23 12/06/23 Range/Units 09:57 03:17 18:05 WBC 18.95 H 20.20 H (4.8-10.8) K/ul RBC 5.64 5.99 (4.70-6.10) M/uL Hgb 17.5 18.5 H (14.0-18.0) g/dl Hct 51.1 53.8 H (42.0-52.0) % MCV 90.6 89.8 (80.0-100.0) fL MCH 31.0 30.9 (25.0-34.0) pg MCHC 34.2 34.4 (32.0-36.0) g/dL RDW Std Deviation 43.0 42.2 (36.4-46.3) fL RDW Coeff of Abe 13.0 12.9 (11.5-14.5) % Plt Count 151 163 (130-400) K/uL MPV 10.1 9.9 (9.4-12.4) fL Immature Gran % (Auto) 0.7 0.7 % Neut % (Auto) 81.1 79.3 % Lymph % (Auto) 6.8 5.6 % [place] % (Auto) 11.0 14.1 % Eos % (Auto) 0.1 0.0 % Baso % (Auto) 0.3 0.3 % Neut # (Auto) 15.38 H 16.00 H (1.40-6.50) K/uL Lymph # (Auto) 1.29 1.14 L (1.20-3.40) K/uL [place] # (Auto) 2.09 H 2.84 H (0.11-0.59) K/uL Eos # (Auto) 0.01 0.01 (0.00-0.50) K/uL Baso # (Auto) 0.05 0.06 (0.00-0.20) K/uL Immature Gran # (Auto) 0.13 0.15 (0.01-0.20) K/uL PT 13.1 H (9.0-12.0) Seconds INR 1.2 H (0.9-1.1) APTT 38 H (21-31) Seconds PTT Ratio 1.3 Heparin Anti-Xa, Unfract 0.38 0.47 (0.3-0.7) IU/ml Sodium 134 L 135 L (136-145) mmol/L Potassium 3.5 3.7 (3.5-5.1) mmol/L Chloride 102 102 (98-107) mmol/L Carbon Dioxide 23 24 (21-32) mmol/L Anion Gap 9 9 (3-11) BUN 13 12 (6-23) mg/dl Creatinine 0.91 0.85 (0.6-1.4) mg/dl Est Cr Clr Drug Dosing 96.9 102.4 ml/min Est GFR ( Amer) 97.2 100.9 ml/min Est GFR (Non-Af Amer) 83.9 87.1 ml/min BUN/Creatinine Ratio 14.3 14.1 (10-20) Glucose 135 H 129 H (70-99(Fasting)) mg/dl Calcium 8.8 9.0 (8.6-10.3) mg/dl Magnesium 1.6 L (1.7-2.4) mg/dl Total Bilirubin 2.1 H (0.2-1.0) mg/dl Direct Bilirubin 0.6 H (0-0.2) mg/dl AST 28 (13-39) U/L ALT 30 (7-52) U/L Alkaline Phosphatase 66 (34-104) U/L Troponin I High Sens 431.0 H* D 728.8 H* D 57.9 H* D (0-20) pg/ml Total Protein 6.4 (6.0-8.3) gm/dl Albumin 3.6 (3.4-5.0) gm/dl Globulin 2.8 (2.5-4.0) gm/dl Albumin/Globulin Ratio 1.3 (0.9-2) Diagnostic Findings CTAP: FINDINGS: Cardiomegaly with extensive coronary artery calcifications. Fusiform dilation of the ascending thoracic aorta, 4.3. The lung bases. No free air. Unremarkable spleen, pancreas and adrenal glands. Distended gallbladder with wal l thickening and pericholecystic edema. Cholelithiasis. Moderate intrahepatic and extrahepatic biliary ductal dilation. Common bile duct measures 10 mm. No choledocholithiasis identified. Unremarkable liver. Patent portal vein. Renal cysts measure up to 8.3 cm on the left. No hydronephrosis. Prostatomegaly. Urinary bladder wall thickening with partial distention. Atherosclerosis of the aorta. No lymphadenopathy. Tiny hiatal hernia. Moderate wall thickening of the duodenum. Colonic diverticulosis. Normal appendix. Tiny fat filled umbilical hernia. Degenerative changes of the spine, pelvis and right hip. Lumbar levoscoliosis. Left hip arthroplasty. IMPRESSION: 1. Cholelithiasis with acute cholecystitis. 2. Mild intrahepatic and extrahepatic biliary ductal dilation without choledocholithiasis identified by CT. Correlation could be made with serum bilirubin. 3. Colonic diverticulosis. 4. Mild aneurysmal dilation of the ascending thoracic aorta is partially imaged. MRCP: FINDINGS: Bile ducts: The common bile duct is upper limits of normal measuring 10 mm in diameter. No choledocholithiasis is identified. Gallbladder: The gallbladder is mildly dilated measuring 5.5 cm short axis diameter. There are several calcified gallstones within it measuring up to 2.3 cm in diameter. There is slight wall thickening and a thin rim of pericholecystic fluid suggesting acute cholecystitis. Liver: There is fatty infiltration of the liver. No focal liver mass lesion is seen. Pancreas: Unremarkable. No ductal dilation. Spleen: Unremarkable. No splenomegaly. Adrenals: Unremarkable. No mass. Kidneys and ureters: There are simple cysts in both kidneys measuring up to 7.7 cm in the left. No follow-up is required. No hydronephrosis. Stomach and bowel: Unremarkable. No obstruction. IMPRESSION: 1. The gallbladder is mildly dilated measuring 5.5 cm short axis diameter. There are several calcified gallstones within it measuring up to 2.3 cm in diameter. There is slight wall thickening and a thin rim of pericholecystic fluid suggesting acute cholecystitis. 2. The common bile duct is upper limits of normal measuring 10 mm in diameter. No choledocholithiasis is identified. 3. There are simple cysts in both kidneys measuring up to 7.7 cm in the left. No follow-up is required.
--- NOTE | 2023-12-07 15:14 | Cardiology Progress Note ---
Date of Service December 07, 2023 Assessment & Plan (1) Atrial fibrillation with RVR: (2) Coronary artery calcification: (3) Demand ischemia: (4) Acute cholecystitis: Plan Clinically and hemodynamically stable after developing recurrent atrial fibrillation with rapid ventricular response. Rate now very reasonable on diltiazem infusion, given excellent response to addition of metoprolol would add this as maintenance medication for rate control (add metoprolol tartrate 2.5 mg IV every 6 hours, hold for heart rate less than 80 bpm or SBP less than 90 mmHg) while continuing diltiazem infusion. Modest troponin rise from demand ischemia is expected given extreme hemodynamic stress of tachycardia in patient with presumed underlying coronary artery disease, this should be balanced out by his complete lack of chest pain or other symptoms, suggesting that his earlier episode of chest pain (when hemodynamics were more favorable) was noncardiac and that with controlled hemodynamics he should tolerate surgery well. Will check creatinine kinase level, this is a better quantify of any myocardial damage (suspect it will not be very elevated). Defer to anesthesiology, but I do not feel that his cardiac risk is sufficient to require transfer to a tertiary center. Continue heparin while awaiting surgery, could stop this 6 hours prior to any surgical intervention. Restart rivaroxaban the day after surgery. Will continue to follow along from a cardiac standpoint. Admission and Anticipated Discharge Date Admission Date: December 05, 2023 Subjective Persistent atrial fibrillation with high rates overnight on maximal dose diltiazem, rate improved substantially after dose of IV metoprolol added this m orning. He does not note tachypalpitations, chest pain, or dyspnea despite high heart rates. He continues to note abdominal pain only. Telemetry showed atrial fibrillation with rate generally in the 110-120 bpm range overnight, 80-90 bpm during the day today. Physical Exam Physical Exam: Appears mildly uncomfortable due to abdominal discomfort. Afebrile. BP normotensive. Pulse 92 bpm and irregular. Respirations 17 and unlabored Skin: no ecchymoses or generalized lesions. HEENT: unremarkable. Neck: JVP above the clavicle at 90 degrees, no carotid bruits. Lungs: clear. Cardiac: irregular rhythm with sporadic ectopy, normal S1-2, no murmur. Abdomen: Upper abdominal tenderness. Extremities: no edema, pulses intact. Neurologic: normal affect and conversation, nonfocal. Results & Data Laboratory Results Troponin sammi from 57.9-7 28 and dropped to 431 today. WBC 18.95, hemoglobin 17.5, normal platelet count. Sodium 134, potassium 3.5, BUN 13, creatinine 0.91. Magnesium 1.6 yesterday. Diagnostic Findings ECG this morning showed atrial fibrillation with ventricular rate 110 bpm, compared with yesterday rate had decreased by [address] depressions no longer present. PG Care Time/CCT Total # of Minutes Spent Total Time Spent with Patient: Total time spent is greater than 50% in coordination of care (as documented) at patient's floor/unit and/or counseling patient: Coding Level of Care Code 19662 SUB INP/OBS CARE 3/50MIN Diagnoses Atrial fibrillation with RVR I48.91 Coronary artery calcification I25.10; I25.84 Demand ischemia I24.89 Acute cholecystitis K81.0
--- NOTE | 2023-12-07 16:43 | Electrocardiogram Report ---
Test Reason : Blood Pressure : / mmHG Vent. Rate : 110 BPM Atrial Rate : 468 BPM P-R Int : 000 ms QRS Dur : 078 ms QT Int : 362 ms P-R-T Axes : 000 012 027 degrees QTc Int : 489 ms Atrial fibrillation with rapid ventricular response Abnormal ECG When compared with ECG of 06-DEC-2023 17:26, Vent. rate has decreased BY [address] no longer depressed in Inferior leads ST less depressed in Anterolateral leads Confirmed by Al Wells ([id number]) on 12/07/2023 4:42:40 PM Referred By: REFERRED SELF Confirmed By:Al Wells
--- NOTE | 2023-12-07 16:54 | Electrocardiogram Report ---
Test Reason : Blood Pressure : / mmHG Vent. Rate : 172 BPM Atrial Rate : 000 BPM P-R Int : 000 ms QRS Dur : 078 ms QT Int : 246 ms P-R-T Axes : 000 047 -56 degrees QTc Int : 416 ms Atrial fibrillation with rapid ventricular response Marked ST abnormality, possible inferolateral subendocardial injury Abnormal ECG When compared with ECG of 05-DEC-2023 19:07, Atrial fibrillation has replaced Sinus rhythm Vent. rate has increased BY [address] now depressed in Inferior leads ST now depressed in Anterolateral leads Confirmed by Al Wells ([id number]) on 12/07/2023 4:54:12 PM Referred By: REFERRED SELF Confirmed By:Al Wells
--- NOTE | 2023-12-07 17:06 | Discharge Summary ---
Date of Service December 07, 2023 Admission HPI Per Admitting Provider 73-year-old male with past medical history of A-fib RVR on DOAC, coronary artery calcification with a past history of mild troponin elevation with demand during A-fib with no history of stents, thoracic aortic aneurysm 4.6 cm stable on repeat CTs who presents to the hospital with 1 day of abdominal pain, nausea and is found Abdominal pain 7/10 x1 day. 0/10 post medications. No history of similar pain. No appetite, did not eat today. Eating did not increase his pain. Last BM was today, brown. No bloody, black, or jacqueline colored movements. Reports he has both R rib pain, and some low mid sternal chest pain today. Chest pain did not radiate into his neck or shoulder. No associated shortness of breath with the pain. Normally takes walks daily, goes up 2 flights of stairs at his home which he sometimes gets a little winded but has no chest pain or angina. Hx of one episode of Afib RVR in [facility] after having his hip replaced last year 2022. Hip replacement otherwise went well, no issues with anesthesia. Last took Xarelto 10am this morning. Also took metorpolol. Also with history of RIGHT leg DVT postoperatively in 2021. No dysuria, endorses polyuria yesterday and today, no dysuria. Principal Diagnosis Acute cholecystitis, atrial flutter with rapid ventricular rate Discharge Exam PHYSICAL EXAMINATION Last 24h vital signs reviewed, see documentation in flowsheet General: comfortable appearing, no distress HEENT: Normocephalic, atraumatic, pupils round and equal, sclerae anicteric, no conjunctival injection, moist mucus membranes Lungs: Normal respiratory effort. Clear to auscultation bilaterally. No RRW Heart: mildly tachycardic Regular rate and rhythm, no murmurs. No JVD Abdomen: Soft, nondistended. TTP in right upper quadrant without rigidity rebound or guarding. Bowel sounds present. Extremities: Warm, dry, well-perfused. No extremity edema. Neuro: Alert and oriented x 4, face symmetric, moves 4 extremities well Psych: Normal affect and behavior Discharge Data Allergies Allergy/AdvReac Type Severity Reaction Status Date / Time bee venom protein (honey bee) Allergy Intermediate Hives Verified 12/05/23 19:36 Consultations 12/05/23 20:16 ED Decision to Admit Stat 12/05/23 20:47 Consult Cardiology Routine Consult General Surgery Routine 12/07/23 11:00 Consult Gastroenterology Routine Ordered Studies 12/05/23 15:42 CT abd pelvis IV con only Stat 12/05/23 21:05 MR MRCP Stat Abdomen/Pelvis CT 12/05/23 15:[address] WITH IV CONTRAST CT DOSE: 1478.21 mGy.cm HISTORY: Acute lower abdominal pain lower abd pain TECHNIQUE: Multiaxial CT images of the abdomen and pelvis were performed following the IV administration of 85 cc of Optiray, A dose lowering technique was utilized adhering to the principles of ALARA. COMPARISON STUDY: Chest CT 11/22/2022 FINDINGS: Cardiomegaly with extensive coronary artery calcifications. Fusiform dilation of the ascending thoracic aorta, 4.3. The lung bases. No free air. Unremarkable spleen, pancreas and adrenal glands. Distended gallbladder with wall thickening and pericholecystic edema. Cholelithiasis. Moderate intrahepatic and extrahepatic biliary ductal dilation. Common bile duct measures 10 mm. No choledocholithiasis identified. Unremarkable liver. Patent portal vein. Renal cysts measure up to 8.3 cm on the left. No hydronephrosis. Prostatomegaly. Urinary bladder wall thickening with partial distention. Atherosclerosis of the aorta. No lymphadenopathy. Tiny hiatal hernia. Moderate wall thickening of the duodenum. Colonic diverticulosis. Normal appendix. Tiny fat filled umbilical hernia. Degenerative changes of the spine, pelvis and right hip. Lumbar levosc oliosis. Left hip arthroplasty. IMPRESSION: 1. Cholelithiasis with acute cholecystitis. 2. Mild intrahepatic and extrahepatic biliary ductal dilation without choledocholithiasis identified by CT. Correlation could be made with serum bilirubin. 3. Colonic diverticulosis. 4. Mild aneurysmal dilation of the ascending thoracic aorta is partially imaged. ACT 112: Negative or not required by law. The above report was generated using voice recognition software. It may contain grammatical, syntax or spelling errors. Electronically signed by: Chris Crocker M.D. 12/05/2023 5:47 PM Cholangiopancreatography MRI 12/05/23 21:05 Exam(s): MRI MRCP EXAM: MR Abdomen Without Intravenous Contrast, MRCP Protocol CLINICAL HISTORY: Reason for exam: acute bassam, ?cholelithiasis. TECHNIQUE: Multiplanar magnetic resonance images of the abdomen without intravenous contrast using MRCP protocol. COMPARISON: CT abdomen and pelvis from December 05, 2023 FINDINGS: Bile ducts: The common bile duct is upper limits of normal measuring 10 mm in diameter. No choledocholithiasis is identified. Gallbladder: The gallbladder is mildly dilated measuring 5.5 cm short axis diameter. There are several calcified gallstones within it measuring up to 2.3 cm in diameter. There is slight wall thickening and a thin rim of pericholecystic fluid suggesting acute cholecystitis. Liver: There is fatty infiltration of the liver. No focal liver mass lesion is seen. Pancreas: Unremarkable. No ductal dilation. Spleen: Unremarkable. No splenomegaly. Adrenals: Unremarkable. No mass. Kidneys and ureters: There are simple cysts in both kidneys measuring up to 7.7 cm in the left. No follow-up is required. No hydronephrosis. Stomach and bowel: Unremarkable. No obstruction. IMPRESSION: 1. The gallbladder is mildly dilated measuring 5.5 cm short axis diameter. There are several calcified gallstones within it measuring up to 2.3 cm in diameter. There is slight wall thickening and a thin rim of pericholecystic fluid suggesting acute cholecystitis. 2. The common bile duct is upper limits of normal measuring 10 mm in diameter. No choledocholithiasis is identified. 3. There are simple cysts in both kidneys measuring up to 7.7 cm in the left. No follow-up is required. Electronically signed by: Grayson Parker MD 12/05/23 22:30 PM 12/07/23 12/07/23 12/06/23 Range/Units 09:57 03:17 18:05 WBC 18.95 H 20.20 H (4.8-10.8) K/ul RBC 5.64 5.99 (4.70-6.10) M/uL Hgb 17.5 18.5 H (14.0-18.0) g/dl Hct 51.1 53.8 H (42.0-52.0) % MCV 90.6 89.8 (80.0-100.0) fL MCH 31.0 30.9 (25.0-34.0) pg MCHC 34.2 34.4 (32.0-36.0) g/dL RDW Std Deviation 43.0 42.2 (36.4-46.3) fL RDW Coeff of Abe 13.0 12.9 (11.5-14.5) % Plt Count 151 163 (130-400) K/uL MPV 10.1 9.9 (9.4-12.4) fL Immature Gran % (Auto) 0.7 0.7 % Neut % (Auto) 81.1 79.3 % Lymph % (Auto) 6.8 5.6 % Den[place] % (Auto) 11.0 14.1 % Eos % (Auto) 0.1 0.0 % Baso % (Auto) 0.3 0.3 % Neut # (Auto) 15.38 H 16.00 H (1.40-6.50) K/uL Lymph # (Auto) 1.29 1.14 L (1.20-3.40) K/uL Denali # (Auto) 2.09 H 2.84 H (0.11-0.59) K/uL Eos # (Auto) 0.01 0.01 (0.00-0.50) K/uL Baso # (Auto) 0.05 0.06 (0.00-0.20) K/uL Immature Gran # (Auto) 0.13 0.15 (0.01-0.20) K/uL PT 13.1 H (9.0-12.0) Seconds INR 1.2 H (0.9-1.1) APTT 38 H (21-31) Seconds PTT Ratio 1.3 Heparin Anti-Xa, Unfract 0.38 0.47 (0.3-0.7) IU/ml Sodium 134 L 135 L (136-145) mmol/L Potassium 3.5 3.7 (3.5-5.1) mmol/L Chloride 102 102 (98-107) mmol/L Carbon Dioxide 23 24 (21-32) mmol/L Anion Gap 9 9 (3-11) BUN 13 12 (6-23) mg/dl Creatinine 0.91 0.85 (0.6-1.4) mg/dl Est Cr Clr Drug Dosing 96.9 102.4 ml/min Est GFR ( Amer) 97.2 100.9 ml/min Est GFR (Non-Af Amer) 83.9 87.1 ml/min BUN/Creatinine Ratio 14.3 14.1 (10-20) Glucose 135 H 129 H (70-99(Fasting)) mg/dl Calcium 8.8 9.0 (8.6-10.3) mg/dl Magnesium 1.6 L (1.7-2.4) mg/dl Total Bilirubin 2.1 H (0.2-1.0) mg/dl Direct Bilirubin 0.6 H (0-0.2) mg/dl AST 28 (13-39) U/L ALT 30 (7-52) U/L Alkaline Phosphatase 66 (34-104) U/L Troponin I High Sens 431.0 H* D 728.8 H* D 57.9 H* D (0-20) pg/ml Total Protein 6.4 (6.0-8.3) gm/dl Albumin 3.6 (3.4-5.0) gm/dl Globulin 2.8 (2.5-4.0) gm/dl Albumin/Globulin Ratio 1.3 (0.9-2) Hospital Course (1) Acute cholecystitis: 73 y/o man with history of atrial fibrillation on xarelto admitted with RUQ abd ominal pain and tenderness, leukocytosis, imaging and clinical presentation consistent with acute cholecystitis Acute cholecystitis admission CTA/P: Acute cholecystitis with cholelithiasis. Mild intrahepatic and extrahepatic biliary ductal dilation without choledocholithiasis. No transaminitis or hyperbilirubinemia is present. - MRCP evening of 12/04 - compatible with acute cholecystitis, no choledocholithiasis Surgery consulted, initial plan was for preoperative cardiology evaluation, cholecystectomy once xarelto held >48h --consulted cardiology for preoperative evaluation treated with pip-tazo since admission evening of 12/05 developed rapid atrial flutter (see below) --this morning bilirubin newly elevated to 2.1, gastroenterology consulted did not recommend ERCP at this time --discussed with general surgeon Dr. Lu who felt that surgical risk presently too high with his active cardiac conditions, recommended transfer to tertiary care for consideration of perc cholecystectomy by IR (not available at [facility] at this time, at least until into next week at best - this degree of delay would put him at unacceptable risk), ERCP --discussed plan of care with Mr. Andino and his at bedside three times today, including recommendation of hospital transfer --discussed with Dr. Love at [facility], accepted for transfer, accepting physician is Dr. Vail (2) Atrial fibrillation with RVR: Past history of atrial fibrillation (though only one known episode), paroxysmal, on Xarelto and metoprolol -xarelto was held on admission, last dose AM of 12/04 -was on scheduled IV metoprolol because of nausea and poor tolerance of po medications Developed abrupt onset of rapid atrial flutter evening of 12/05 and code purple was called due to rates at least 150 with dyspnea -rate was controlled with continued IV metoprolol (most recent PRN dose 5 mg early this AM), diltiazem boluses (20 mg total with good response) followed by diltiazem drip, currently with reasonably good rate control on 15 mg/h -anticoagulation with heparin drip was initiated evening of 12/05 -embossing tool setter recommended continuation of diltiazem drip through tomorrow (3) Coronary artery calcification: CAD Has seen cardiology in the past, suspected to have underlying occult CAD, has had a history of troponin leak with RVR in the past however no anginal symptoms. No history of heart failure. Echo 11/22/2022 with EF 65 to 70%, normal wall motion and systolic function, no significant valvular disease Patient reports he is able to go up 2 flights of stairs with some dyspnea but no chest pain or angina, and shortness of breath he feels is proportional to the exercise and recovers quickly with rest. Denies chest pain at rest No chest pain at time of admitting assessment, reports prior to coming in and receiving morphine he did have mild low substernal pressure which has since completely resolved Follows with [facility] cardiology. Consulted for preoperative risk assessment. No signs of ACS on admission initially had minimally elevated troponin 26-->25, EKG without acute ischemic changes. no evidence of ACS - Echo reviewed - EF 65-70%, mod dilated RV, mild aortic root dilation unchanged, no sig valvular disease, no RWMAs noted After development of atrial fib/flutter with rapid rate developed troponin elevation to 700s, which downtrended to 500 this morning, most consistent with type 2 nstemi related to myocardial strain - discussed with embossing tool setter Dr. Wells - recommended to continue b-giovani and rate control (4) HTN (hypertension): home meds triamterenehydrochlorothiazide, metoprolol po uncontrolled on scheduled IV metoprolol 2.5 IV q6h - increased to 5 mg and gav e extra one time dose of 2.5 mg IV midday - continue holding diuretic until oral intake normalized / postop - resume oral metoprolol - may need second agent - IV labetalol or IV hydralazine PRN uncontrolled hypertension (5) Hyperlipidemia: continue Atorvastatin (6) Thoracic ascending aortic aneurysm: Ascending thoracic aorta aneurysm CTchest 11/2022 with 4.6 cm aneurysmal dilatation, stable, 1 year surveillance imaging - Avoid fluoroquinolones (7) History of DVT (deep vein thrombosis): Patient reports history of right lower extremity DVT postoperatively this was a few years ago, has been on Xarelto both for this and A-fib Plan DVT PPx: anticoagulated currently Total Time Total Time Spent Total Time Spent (In Minutes): 120 minutes spent today on clinical care activities including three bedside visits, examining patient and counseling patient and his , discussion with consultants - general surgery, gastroenterology, cardiology, arranging hospital transfer, reviewing vital signs and labs, documentation, orders Discharge Plan Discharge Items Reason For Visit: ACUTE BASSAM Discharge Diagnosis: acute cholecystitis, atrial flutter with rapid ventricular rate Activity: As commented below Non-emergency contact: Primary Care Provider Call non-emergency contact if: you have any medication questions Follow-up/Referrals: Catia Peoples MD [Primary Care Provider] - Diet: Nothing by Mouth Addtl Attending Provider Instructions: . Pending Studies at Discharge: No Stand-Alone Forms: My [employer] Skilled Items Patient informed of condition?: Yes DNR: Yes Discharge Level of Care: Other Communicable Disease: No Discharge Prognosis: Stable Lines: Peripheral IV Urinary Catheter: Yes Medications and DC Order Prescriptions: No Action sildenafil (pulm.hypertension) 20 mg tablet 50 mg PO DAILY PRN (Reason: sexual activity) Qty: 36 11RF Rx Instructions: TAKES 2 1/2 TABS. epinephrine 0.3 mg/0.3 mL auto-injector 0.3 mg IM DIRECTED PRN (Reason: anaphylaxis) Qty: 2 0RF Rx Instructions: 0.3 mg IM as directed PRN; for 2 doses triamterene-hydrochlorothiazid 37.5-25 mg tablet 1 tab PO QAM Qty: 90 1RF Xarelto 20 mg tablet 20 mg PO QAM Qty: 90 2RF atorvastatin 40 mg tablet 40 mg PO DAILY Qty: 90 3RF metoprolol succinate [Toprol XL] 50 mg tablet extended release 24 hr 50 mg PO DAILY Qty: 90 3RF triamcinolone acetonide 0.1 % Cream 1 applic TOPICAL BID PRN (Reason: Skin Irritation) acetaminophen [Tylenol 8 Hour] 650 mg Tablet Extended Release 1,300 mg PO Q12H PRN (Reason: Pain) Admission Data Admit Date/Time: 12/05/23 20:47 Attending Provider: Mari Shaw Admit Provider: Tyrone Watkins Primary Care Provider: Catia Peoples Other Providers: Al Wells; Vinod Lu; Tyrone Wtakins; Genesis Daniel; Neo Martin; Maria De Jesus Greenfield; Ofelia Amin; Freya Owen; Linh Anglin; Armando Sarah; Alonzo Morataya; Efraín Mary; Emma Arango; Kaila Tracy; Ida Zaragoza; Cari Mendez; Margarita Witt; Lashawn Sharma; Rene Neely; Parveen Coreas; Solo Torres; Sana Ling; Adam Stuart Jr Coding Level of Care Code 08975 INP/OBS DISCH >30 MIN Diagnoses Acute cholecystitis K81.0 Atrial fibrillation with RVR I48.91 Coronary artery calcification I25.10; I25.84 HTN (hypertension) I10 Hyperlipidemia E78.5 Thoracic ascending aortic aneurysm I71.21 History of DVT (deep vein thrombosis) Z86.718
[2023-12-07] MEDS: METOPROLOL TARTRATE 1 MG/ML VIAL IV SCH (18:27)
[2023-12-07 19:00] LABS: Troponin I High Sensitivity 245.5 pg/ml (0-20)
[2023-12-08 07:02] LABS: Basophils # (auto) 0.03 K/uL (0.00-0.20); Basophils % (auto) 0.2 %; Eosinophils # (auto) 0.24 K/uL (0.00-0.50); Eosinophils % (auto) 1.9 %; Hematocrit (blood only) 48.5 % (42.0-52.0); Hemoglobin 16.5 g/dl (14.0-18.0); Immature Granulocytes # (auto) 0.08 K/uL (0.01-0.20); Immature Granulocytes % (auto) 0.6 %; Lymphocytes # (auto) 1.17 K/uL (1.20-3.40); Lymphocytes % (auto) 9.1 %; Mean Corpuscular Volume 91.2 fL (80.0-100.0); Mean Platelet Volume 10.1 fL (9.4-12.4); Monocytes % (auto) 10.1 %; Neutrophils # (auto) 10.05 K/uL (1.40-6.50); Neutrophils % (auto) 78.1 %; Platelet Count 168 K/uL (130-400); RDW Coefficient of Variation 13.2 % (11.5-14.5); RDW Standard Deviation 43.8 fL (36.4-46.3); Red Blood Count 5.32 M/uL (4.70-6.10); White Blood Count 12.87 K/ul (4.8-10.8)
[2023-12-08 07:43] LABS: Albumin Globulin Ratio 1.1 (0.9-2); Albumin Level 3.1 gm/dl (3.4-5.0); BUN Creatinine Ratio 21.1 (10-20); Bilirubin,Total 2.4 mg/dl (0.2-1.0); Calcium 8.3 mg/dl (8.6-10.3); Creatinine Clr Calc Pharmacy 91.7 ml/min; Est GFR (African American) 92.3 ml/min; Est GFR (Non-African American) 79.7 ml/min; Globulin 2.8 gm/dl (2.5-4.0); Potassium 3.3 mmol/L (3.5-5.1); Total Protein 5.9 gm/dl (6.0-8.3)
[2023-12-08] MEDS: POTASSIUM CHLORIDE / WTR 10 MEQ/100 ML PLCT IV SCH (08:05)
[2023-12-08 13:45] LABS: ANTI-Xa, UFH(UnfractionatedHep 0.21 IU/ml (0.3-0.7)
--- NOTE | 2023-12-08 13:52 | Billing Data ---
Date of Service December 08, 2023 Coding Level of Care Code 50694 INP/OBS DISCH >30 MIN
--- NOTE | 2023-12-08 15:13 | Cardiology Progress Note ---
Date of Service December 08, 2023 Assessment & Plan (1) Atrial fibrillation with RVR: (2) Coronary artery calcification: (3) Demand ischemia: (4) Acute cholecystitis: Plan Clinically and hemodynamically stable on IV diltiazem/metoprolol for rate control of recurrent atrial fibrillation. At the time of transfer, could hold heparin to simplify logistics (low risk of thrombus off heparin for a few hours). However, would continue IV diltiazem if possible, since he is prone to variable rate and the adrenergic milieu of ambulance ride could result in tachycardia. If unable to continue IV diltiazem, will give dose of diltiazem 90 mg orally prior to transfer. As noted, modest troponin rise is from demand ischemia, myocardial involvement was minimal (as evidenced by CK of 52 yesterday). The fact that he tolerated extreme tachycardia (180 bpm) without chest discomfort or dyspnea is in essence passing a "physiologic stress test" and indicates an absence of critical coronary stenoses. . Admission and Anticipated Discharge Date Admission Date: December 05, 2023 Subjective Uneventful night, remains in atrial fibrillation but with adequate rate control on intravenous diltiazem and low-dose q 6 hours IV metoprolol. No new complaints. Still with abdominal discomfort. No chest pain, dyspnea, palpitations, or lightheadedness. Telemetry showed atrial fibrillation with ventricular rate 70-100 bpm Physical Exam Physical Exam: Appears mildly uncomfortable due to abdominal discomfort. Afebrile. BP normotensive. Pulse 92 bpm and irregular. Respirations 19 and unlabored Skin: no ecchymoses or generalized lesions. HEENT: unremarkable. Neck: JVP above the clavicle at 90 degrees, no carotid bruits. Lungs: clear. Cardiac: irregular rhythm, normal S1-2, no murmur. Abdomen: Upper abdominal tenderness. Extremities: no edema, pulses intact. Neurologic: normal affect and conversation, nonfocal. Results & Data Laboratory Results Send 135, potassium 3.3, BUN 20, creatinine 0.95. PG Care Time/CCT Total # of Minutes Spent Total Time Spent with Patient: Total time spent is greater than 50% in coordination of care (as documented) at patient's floor/unit and/or counseling patient: Coding Level of Care Code 45313 SUB INP/OBS CARE 2/35MIN Diagnoses Atrial fibrillation with RVR I48.91 Coronary artery calcification I25.10; I25.84 Demand ischemia I24.89 Acute cholecystitis K81.0
--- NOTE | 2023-12-14 08:37 | Coding Query ---
PRESENT ON ADMISSION QUERY To promote full compliance with coding requirements relating to pateint care, physician participation is requested in all cases of medical biller coder uncertainty. Please assist us with the question(s) below: Please place an X within the parenthesis (x). The following diagnosis listed in this patient's medical record require physician assistance to determine if they were present on admission (POA) or not, and also for adequate documentation as it is documented one time. Please advise for each diagnosis whether it was present on admission, not present on admission, or if it was clinically undetermined. 1. Possible Type 2 NSTEMI related to Myocardial Strain (Documented on the Discharge Summary) ( ) Present On Admission (x ) Not Present On Admission ( ) Clinically Undetermined ( ) Ruled-Out Thank you Brenda Covarrubias *Definition of the present on admission (POA)-Present on admission is defined as present at the time the order for inpatient admission occurs. Conditions that develop during an outpatient encounter prior to a written order for inpatient admission (including emergency department, observation, or outpatient surgery) are considered present on admission. SONIA
== END 2023-12-08 17:06 | disposition short-term general hospital (02) | DRG 444 ==
LOC: ED 15:05 → SUATTDRO 20:47 → EDINP 20:47 → 4W 12-06 23:16